=== PATIENT | male | born 1970 | race African-American/Black ===

== ENCOUNTER 2016-11-30 19:13 | Emergency (ER) | payer MEDICAID ==
[~2016-11-30] VITALS: Ht 185.4 cm; Wt 63.5 kg
[~2016-11-30 19:13] MED LIST: DOCU50CA2; OXYB5TAB61 PO; TEMA30CA5 PO; baclofen PO; gabapentin PO
[2016-11-30 20:00] VITALS: BP 202/112
[2016-11-30] MEDS ORDERED: SODIUM CHLORIDE 0.9% 1,000 ML IV ONE (21:10)
[2016-11-30] MEDS ORDERED: HYDROmorphone HCL 2 MG/ML VL IV ONE (21:15)
[2016-11-30] MEDS ORDERED: ONDANSETRON HCL 4 MG/2 ML VIAL IV ONE (21:15)
[2016-11-30 21:42] LABS: Basophils # (auto) 0 uL; DEFINITIVE VIEW TRANSMISSION; Eosinophils # (auto) 0.1 uL; Eosinophils % (auto) 1.9 % (0.0-7.0); Lymphocytes # (auto) 1.5 uL; Lymphocytes % (auto) 51.4 % (10.0-50.0); Mean Corpuscular Hemoglobin 25.7 pg (28.0-32.0); Mean Corpuscular Hgb Conc. 30.5 g/dL (32.0-36.0); Mean Corpuscular Volume 84.4 fL (80.0-100.0); Mean Platelet Volume 10.4 fL (7.4-10.4); Monocytes # (auto) 0.1 uL; Neutrophils # (auto) 1.2 uL; Neutrophils % (auto) 41.7 % (37.0-80.0); Platelet Count (auto) 169 10^3/uL (140-450); Red Cell Distribution Width 15.6 % (11.6-16.0)
[2016-11-30 22:00] LABS: Albumin 3.3 g/dL (3.4-5.0); BUN/Creatinine Ratio 11.9; Bilirubin, Total 0.3 mg/dL (0.2-1.0); Calcium 8.3 mg/dL (8.5-10.1); Potassium 4.4 mmol/L (3.5-5.1); Total Protein 6.5 g/dL (6.4-8.2)
[2016-11-30 22:57] LABS: Urine Bilirubin Negative (Negative); Urine Blood Negative /uL (Negative); Urine Color Yellow (Yellow); Urine Glucose Normal (Normal); Urine Ketone Negative (Negative); Urine RBC <1 /hpf (0 - 3); Urine Urobilinogen Normal (Negative)
[2016-11-30 22:58] LABS: Urine Nitrite POSITIVE (Negative)
== END 2016-12-01 02:18 | disposition home or self-care (01) ==
LOC: EDBD 19:13 → ER 19:17
DX: R10.84 Generalized abdominal pain (principal); K59.00 Constipation, unspecified; Z88.1 Allergy status to other antibiotic agents; Z88.8 Allergy status to other drugs, medicaments and biological substances; Z90.6 Acquired absence of other parts of urinary tract; Z90.79 Acquired absence of other genital organ(s); Z93.3 Colostomy status
CPT/HCPCS: 36415; 74176; 80053; 81001; 83690; 85025; 96361; 96374; 96375; 99285; J1170; J2405

== ENCOUNTER 2016-12-07 13:00 | Emergency (ER) | payer MEDICAID ==
[~2016-12-07] VITALS: Ht 188 cm; Wt 64.9 kg
[2016-12-07 13:38] LABS: Basophils # (auto) 0 uL; Basophils % (auto) 0.7 % (0.0-2.0); DEFINITIVE VIEW TRANSMISSION; Eosinophils # (auto) 0.1 uL; Eosinophils % (auto) 2.1 % (0.0-7.0); Hematocrit 39.5 % (41.0-53.0); Hemoglobin 12.1 g/dL (13.5-17.5); Lymphocytes # (auto) 1.1 uL; Lymphocytes % (auto) 45.3 % (10.0-50.0); Mean Corpuscular Hemoglobin 26.2 pg (28.0-32.0); Mean Corpuscular Hgb Conc. 30.5 g/dL (32.0-36.0); Mean Corpuscular Volume 85.8 fL (80.0-100.0); Monocytes # (auto) 0.2 uL; Monocytes % (auto) 8.5 % (0.0-12.0); Neutrophils # (auto) 1.1 uL; Neutrophils % (auto) 43.4 % (37.0-80.0); Platelet Count (auto) 120 10^3/uL (140-450); White Blood Cell 2.5 10^3/uL (4.4-10.8)
[2016-12-07 14:00] LABS: Albumin 3.3 g/dL (3.4-5.0); BUN/Creatinine Ratio 14.3; Bilirubin, Total 0.3 mg/dL (0.2-1.0); Calcium 8.2 mg/dL (8.5-10.1); Total Protein 6.6 g/dL (6.4-8.2)
[2016-12-07] MEDS ORDERED: SODIUM CHLORIDE 0.9% 1,000 ML IVB ONE (16:54)
[2016-12-07] MEDS ORDERED: MORPHINE SULFATE 4 MG/ML SYRG IV ONE (17:00)
[2016-12-07] MEDS ORDERED: METOCLOPRAMIDE HCL 5MG/ml INJ 2ml VIAL IV ONE (17:00)
[2016-12-07 17:12] LABS: Urine Bilirubin Negative (Negative); Urine Blood Negative /uL (Negative); Urine Color Yellow (Yellow); Urine Glucose Normal (Normal); Urine Ketone Negative (Negative); Urine Mucus FEW (None Seen); Urine RBC 6 /hpf (0 - 3); Urine Squamous Epithelial Cell FEW /hpf (<5); Urine Triple Phosphate Crystal FEW /hpf (None Seen); Urine Urobilinogen Normal (Negative)
[2016-12-07 17:30] LABS: Urine Nitrite POSITIVE (Negative)
[2016-12-07 17:35] LABS: Magnesium 2.3 mg/dL (1.6-2.6)
[2016-12-07] MEDS ORDERED: cefTRIAXone 1GM/50ML D5W 50 ML IV ONE (18:15)
[2016-12-07] MEDS ORDERED: VANCOMYCIN 1GM/250ML D5W 250 ML IV ONE (18:30)
[2016-12-07 19:07] VITALS: BP 105/68
== END 2016-12-07 21:03 | disposition home or self-care (01) ==
LOC: ER 13:00
DX: N39.0 Urinary tract infection, site not specified (principal); D64.9 Anemia, unspecified; G82.20 Paraplegia, unspecified; Z88.1 Allergy status to other antibiotic agents; Z79.899 Other long term (current) drug therapy; Z93.3 Colostomy status; Z93.6 Other artificial openings of urinary tract status
CPT/HCPCS: 36415; 80053; 81001; 83690; 83735; 84443; 85025; 96361; 96365; 96375; 99284; J2270; J2765; J3370; J7030

== ENCOUNTER 2017-01-22 12:36 | Emergency (ER) | payer MEDICAID ==
[~2017-01-22] VITALS: Ht 172.7 cm; Wt 65.8 kg
[2017-01-22] MEDS ORDERED: SODIUM CHLORIDE 0.9% 1,000 ML IVB ONE (16:40)
[2017-01-22] MEDS ORDERED: HYDROmorphone HCL 2 MG/ML VL IV ONE (16:45)
[2017-01-22] MEDS ORDERED: ONDANSETRON HCL 4 MG/2 ML VIAL IV ONE (16:45)
[2017-01-22 17:03] LABS: Urine Bilirubin Negative (Negative); Urine Blood Negative /uL (Negative); Urine Color Yellow (Yellow); Urine Glucose Normal (Normal); Urine Ketone Negative (Negative); Urine Nitrite POSITIVE (Negative); Urine RBC 2 /hpf (0 - 3); Urine Squamous Epithelial Cell FEW /hpf (<5); Urine Triple Phosphate Crystal FEW /hpf (None Seen); Urine Urobilinogen Normal (Negative)
[2017-01-22 17:34] LABS: Basophils # (auto) 0 uL; Basophils % (auto) 0.6 % (0.0-2.0); DEFINITIVE VIEW TRANSMISSION; Eosinophils # (auto) 0.1 uL; Hematocrit 38.8 % (41.0-53.0); Hemoglobin 12.4 g/dL (13.5-17.5); Lymphocytes % (auto) 20.5 % (10.0-50.0); Mean Corpuscular Hemoglobin 26.6 pg (28.0-32.0); Mean Corpuscular Volume 83.3 fL (80.0-100.0); Mean Platelet Volume 10.1 fL (7.4-10.4); Monocytes # (auto) 0.4 uL; Monocytes % (auto) 7.1 % (0.0-12.0); Neutrophils # (auto) 3.5 uL; Neutrophils % (auto) 70.8 % (37.0-80.0); Platelet Count (auto) 199 10^3/uL (140-450); Red Cell Distribution Width 15.1 % (11.6-16.0); White Blood Cell 4.9 10^3/uL (4.4-10.8)
[2017-01-22 17:59] LABS: Albumin 3.3 g/dL (3.4-5.0); BUN/Creatinine Ratio 11.5; Bilirubin, Total 0.4 mg/dL (0.2-1.0); Calcium 9.1 mg/dL (8.5-10.1); Potassium 4.5 mmol/L (3.5-5.1); Total Protein 7.1 g/dL (6.4-8.2)
[2017-01-22 18:24] VITALS: BP 132/85
== END 2017-01-22 19:28 | disposition home or self-care (01) ==
LOC: EDBD 12:36 → ER 12:49
DX: N39.0 Urinary tract infection, site not specified (principal); G82.20 Paraplegia, unspecified; Z79.899 Other long term (current) drug therapy; Z88.1 Allergy status to other antibiotic agents
CPT/HCPCS: 36415; 74176; 80053; 81001; 83605; 85025; 87040; 94761; 96361; 96374; 96375; 99285; J1170; J2405; J7030

== ENCOUNTER 2017-02-14 08:37 | Emergency (ER) | payer MEDICAID ==
[~2017-02-14] VITALS: Ht 185.4 cm; Wt 68.0 kg
[2017-02-14 08:55] VITALS: BP 100/73
[2017-02-14] MEDS ORDERED: PHENAZOPYRIDINE HCL 100 MG TAB PO ONE (09:45)
[2017-02-14 10:16] LABS: Urine Bilirubin Negative (Negative); Urine Blood TRACE /uL (Negative); Urine Color Yellow (Yellow); Urine Glucose Normal (Normal); Urine Ketone Negative (Negative); Urine Mucus FEW (None Seen); Urine RBC 8 /hpf (0 - 3); Urine Urobilinogen Normal (Negative)
[2017-02-14 10:17] LABS: Urine Nitrite POSITIVE (Negative)
== END 2017-02-14 10:09 | disposition home or self-care (01) ==
LOC: ER 08:50
DX: N39.0 Urinary tract infection, site not specified (principal); R05 Cough; Z87.440 Personal history of urinary (tract) infections; Z88.8 Allergy status to other drugs, medicaments and biological substances; Z88.1 Allergy status to other antibiotic agents
CPT/HCPCS: 81001; 81002; 87086; 87088; 87186

== ENCOUNTER 2017-02-19 09:40 | Inpatient (IN) | payer MEDICAID ==
[~2017-02-19] VITALS: Ht 185.4 cm; Wt 62.2 kg
[2017-02-19] MEDS ORDERED: SODIUM CHLORIDE 0.9% 1,000 ML IV ONE (10:38)
[2017-02-19] MEDS ORDERED: ERTAPENEM SOD INJ 1 GM in SODIUM CHL 0.9% 50 ML IV ONE (10:45)
[2017-02-19 10:49] LABS: Basophils # (auto) 0 uL; Basophils % (auto) 0.9 % (0.0-2.0); Eosinophils # (auto) 0.1 uL; Eosinophils % (auto) 2.1 % (0.0-7.0); Hemoglobin 11.1 g/dL (13.5-17.5); Lymphocytes # (auto) 0.9 uL; Lymphocytes % (auto) 34.9 % (10.0-50.0); Mean Corpuscular Hgb Conc. 31.8 g/dL (32.0-36.0); Mean Platelet Volume 10.3 fL (7.4-10.4); Monocytes # (auto) 0.2 uL; Neutrophils # (auto) 1.4 uL; Neutrophils % (auto) 54.1 % (37.0-80.0); Platelet Count (auto) 170 10^3/uL (140-450); Red Cell Distribution Width 15.1 % (11.6-16.0); White Blood Cell 2.5 10^3/uL (4.4-10.8)
[2017-02-19 10:51] LABS: Albumin 3.2 g/dL (3.4-5.0); BUN/Creatinine Ratio 20.6; Calcium 8.1 mg/dL (8.5-10.1); Potassium 4.5 mmol/L (3.5-5.1)
[2017-02-19 10:54] LABS: Total Protein 6.9 g/dL (6.4-8.2)
[2017-02-19 11:57] LABS: INR 1.01 (0.9-1.15); Partial Thromboplastin Time 26.1 sec (22.64-33.71); Prothrombin Time 10.9 sec (9.37-12.3)
[2017-02-19] MEDS ORDERED: ONDANSETRON HCL 4 MG/2 ML VIAL IV ONE (12:00)
[2017-02-19] MEDS ORDERED: NALBUPHINE HCL 10 MG/1ml INJECTION IV ONE (12:00)
[2017-02-19 12:10] LABS: B-Type Natriuretic Peptide 8.55 pg/mL (0-100)
[2017-02-19 12:19] LABS: Temperature: 23.4 C (20.0-25.0)
[2017-02-19] MEDS ORDERED: diphenhdrAMINE HCL 50 MG/1 ML VL IV ONE (12:45)
[2017-02-19 12:48] LABS: Urine Bilirubin Negative (Negative); Urine Blood TRACE /uL (Negative); Urine Color Yellow (Yellow); Urine Glucose Normal (Normal); Urine Hyaline Cast FEW /lpf (0 - 2); Urine Ketone Negative (Negative); Urine Mucus FEW (None Seen); Urine Nitrite POSITIVE (Negative); Urine RBC 9 /hpf (0 - 3); Urine Squamous Epithelial Cell FEW /hpf (<5); Urine Urobilinogen Normal (Negative)
[2017-02-19] MEDS ORDERED: HYDROcodone-ACET 5/325MG TAB PO PRN (13:15)
[2017-02-19] MEDS ORDERED: PROCHLORPERAZINE EDISYLATE 5 MG/ML 2ML VIAL IV PRN (13:15)
[2017-02-19] MEDS ORDERED: MORPHINE SULF INJ 2 MG/ML SYRINGE 1ML IV PRN (13:15)
[2017-02-19] MEDS ORDERED: NITROGLYCERIN 0.4 MG SL TAB SL PRN (13:15)
[2017-02-19] MEDS ORDERED: ACETAMINOPHEN 500 MG TAB PO PRN (13:15)
[2017-02-19] MEDS ORDERED: ENOXAPARIN SOD 40 MG/0.4 ML SYRINGE SC ONE (13:30)
[2017-02-19] MEDS: SODIUM CHLORIDE 0.9% 1,000 ML IV SCH ×2 (16:46→21:08)
[2017-02-19] MEDS ORDERED: POLY335015 PO (18:53)
[2017-02-19] MEDS ORDERED: OXY10CRT PO (18:53)
[2017-02-19] MEDS ORDERED: HYDR-4072 PO (18:53)
[2017-02-19] MEDS ORDERED: MULT-228 PO (18:53)
[2017-02-19] MEDS ORDERED: FAM20T PO (18:53)
[2017-02-19] MEDS ORDERED: DICY10CA55 PO (18:53)
[2017-02-19] MEDS: MORPHINE SULF INJ 2 MG/ML SYRINGE 1ML IV PRN (21:09)
[2017-02-19 22:00] VITALS: BP 101/62
[2017-02-19] MEDS: TEMAZEPAM 15 MG CAP PO PRN (23:20)
[2017-02-19] MEDS: LORazepam 0.5 MG TAB PO PRN (23:20)
[2017-02-20 05:05] LABS: Basophils # (auto) 0 uL; Basophils % (auto) 0.7 % (0.0-2.0); Eosinophils # (auto) 0.1 uL; Eosinophils % (auto) 1.8 % (0.0-7.0); Hematocrit 33.3 % (41.0-53.0); Hemoglobin 10.6 g/dL (13.5-17.5); Lymphocytes # (auto) 1.4 uL; Lymphocytes % (auto) 39.8 % (10.0-50.0); Mean Corpuscular Hemoglobin 27.1 pg (28.0-32.0); Mean Corpuscular Hgb Conc. 31.8 g/dL (32.0-36.0); Mean Corpuscular Volume 85.3 fL (80.0-100.0); Monocytes # (auto) 0.3 uL; Monocytes % (auto) 7.7 % (0.0-12.0); Neutrophils # (auto) 1.7 uL; Platelet Count (auto) 167 10^3/uL (140-450); White Blood Cell 3.4 10^3/uL (4.4-10.8)
[2017-02-20] MEDS: SODIUM CHLORIDE 0.9% 1,000 ML IV SCH (05:12)
[2017-02-20 08:01] VITALS: BP 109/73
[2017-02-20] MEDS: ENOXAPARIN SOD 40 MG/0.4 ML SYRINGE SC SCH (09:24)
[2017-02-20] MEDS: ERTAPENEM SOD INJ 1 GM in SODIUM CHL 0.9% 50 ML IV SCH (09:24)
[2017-02-20] MEDS: MORPHINE SULF INJ 2 MG/ML SYRINGE 1ML IV PRN ×2 (09:24→13:22)
[2017-02-20 12:23] VITALS: BP 107/71
[2017-02-20] MEDS ORDERED: GABAPENTIN 400 MG CAP PO SCH (14:00)
[2017-02-20] MEDS: OXYBUTYNIN CHL 5 MG TAB PO SCH ×2 (15:13→21:57)
[2017-02-20] MEDS: BACLOFEN 10 MG TAB PO SCH ×2 (15:13→21:57)
[2017-02-20] MEDS: GABAPENTIN 300 MG CAP PO SCH ×2 (15:23→21:58)
[2017-02-20] MEDS: LORazepam 0.5 MG TAB PO PRN (16:16)
[2017-02-20 16:34] VITALS: BP 112/73
[2017-02-20] MEDS: POLYETHYLENE GLYCOL 17GM PWDR PO PRN (18:35)
[2017-02-20 19:30] VITALS: BP 113/66
[2017-02-20] MEDS: OXYCODONE HCL 5MG TAB PO PRN (21:58)
[2017-02-21] MEDS: MORPHINE SULF INJ 2 MG/ML SYRINGE 1ML IV PRN ×3 (01:58→23:06)
[2017-02-21] MEDS: LORazepam 0.5 MG TAB PO PRN (01:58)
[2017-02-21 05:00] VITALS: BP 118/84
[2017-02-21] MEDS: GABAPENTIN 300 MG CAP PO SCH ×3 (07:02→22:13)
[2017-02-21] MEDS: BACLOFEN 10 MG TAB PO SCH ×3 (07:03→22:13)
[2017-02-21] MEDS: OXYBUTYNIN CHL 5 MG TAB PO SCH ×3 (07:03→22:12)
[2017-02-21] MEDS: ERTAPENEM SOD INJ 1 GM in SODIUM CHL 0.9% 50 ML IV SCH (09:57)
[2017-02-21] MEDS: ENOXAPARIN SOD 40 MG/0.4 ML SYRINGE SC SCH (09:57)
[2017-02-21] MEDS: SODIUM CHLORIDE 0.9% 1,000 ML IV SCH ×2 (13:12→23:07)
[2017-02-21 16:47] VITALS: BP 133/87
[2017-02-21] MEDS: POLYETHYLENE GLYCOL 17GM PWDR PO PRN (18:23)
[2017-02-21 22:00] VITALS: BP 125/73
[2017-02-21] MEDS: TEMAZEPAM 15 MG CAP PO PRN (22:13)
[2017-02-22 05:00] VITALS: BP 106/62
[2017-02-22] MEDS: BACLOFEN 10 MG TAB PO SCH ×3 (05:41→21:26)
[2017-02-22] MEDS: GABAPENTIN 300 MG CAP PO SCH ×3 (05:41→21:26)
[2017-02-22] MEDS: OXYBUTYNIN CHL 5 MG TAB PO SCH ×3 (05:41→21:26)
[2017-02-22 07:36] VITALS: BP 118/85
[2017-02-22] MEDS ORDERED: HYDROmorphone HCL 2 MG/ML VL IV PRN ×3 (08:45→20:45)
[2017-02-22] MEDS: ERTAPENEM SOD INJ 1 GM in SODIUM CHL 0.9% 50 ML IV SCH (11:23)
[2017-02-22] MEDS: ENOXAPARIN SOD 40 MG/0.4 ML SYRINGE SC SCH (11:24)
[2017-02-22 12:18] VITALS: BP 127/70
[2017-02-22] MEDS ORDERED: HYDROmorphone HCL 2 MG/ML VL IV ONE (15:45)
[2017-02-22 16:15] VITALS: BP 124/84
[2017-02-22] MEDS: BOOST 8 ounces PO SCH (18:00)
[2017-02-22] MEDS: LORazepam 0.5 MG TAB PO PRN (20:43)
[2017-02-22] MEDS: OXYCODONE HCL 5MG TAB PO PRN (21:27)
[2017-02-22 22:00] VITALS: BP 178/113
[2017-02-23] MEDS: HYDROmorphone HCL 2 MG/ML VL IV PRN ×6 (01:12→22:24)
[2017-02-23] MEDS: TEMAZEPAM 15 MG CAP PO PRN (01:51)
[2017-02-23 05:00] VITALS: BP 108/79
[2017-02-23] MEDS: GABAPENTIN 300 MG CAP PO SCH ×3 (05:30→22:25)
[2017-02-23] MEDS: OXYBUTYNIN CHL 5 MG TAB PO SCH ×3 (05:31→22:25)
[2017-02-23] MEDS: BACLOFEN 10 MG TAB PO SCH ×3 (05:31→22:25)
[2017-02-23] MEDS: BOOST 8 ounces PO SCH ×2 (08:00→18:00)
[2017-02-23 09:00] VITALS: BP 106/72
[2017-02-23] MEDS: ERTAPENEM SOD INJ 1 GM in SODIUM CHL 0.9% 50 ML IV SCH (09:42)
[2017-02-23] MEDS: ENOXAPARIN SOD 40 MG/0.4 ML SYRINGE SC SCH (09:43)
[2017-02-23 13:00] VITALS: BP 110/79
[2017-02-23 16:44] VITALS: BP 136/82
[2017-02-23 22:00] VITALS: BP 138/91
[2017-02-23] MEDS: POLYETHYLENE GLYCOL 17GM PWDR PO PRN (23:08)
[2017-02-24 05:30] VITALS: BP 115/76
[2017-02-24] MEDS: BACLOFEN 10 MG TAB PO SCH ×2 (06:13→14:00)
[2017-02-24] MEDS: GABAPENTIN 300 MG CAP PO SCH ×2 (06:13→14:00)
[2017-02-24] MEDS: OXYBUTYNIN CHL 5 MG TAB PO SCH ×2 (06:13→14:00)
[2017-02-24] MEDS: OXYCODONE HCL 5MG TAB PO PRN (06:16)
[2017-02-24] MEDS: BOOST 8 ounces PO SCH (07:55)
[2017-02-24 08:00] VITALS: BP 98/70
[2017-02-24] MEDS ORDERED: LACTULOSE 20Gm/30ML SOLN PO ONE (08:30)
[2017-02-24 09:00] VITALS: BP 98/70
[2017-02-24] MEDS: ERTAPENEM SOD INJ 1 GM in SODIUM CHL 0.9% 50 ML IV SCH (09:36)
[2017-02-24] MEDS: ENOXAPARIN SOD 40 MG/0.4 ML SYRINGE SC SCH (09:36)
[2017-02-24 12:55] VITALS: BP 98/70
[2017-02-24 13:00] VITALS: BP 115/72
== END 2017-02-24 16:00 | disposition home health service (06) | DRG 720 ==
LOC: ER 09:40 → TELE 09:41 → TELE-EAST 17:27 → EAST 02-20 13:34
PROVIDERS: ADMIT Internal Medicine; ATTEND Internal Medicine
DX: A41.9 Sepsis, unspecified organism (principal); G82.20 Paraplegia, unspecified; E44.0 Moderate protein-calorie malnutrition; J44.9 Chronic obstructive pulmonary disease, unspecified; N39.0 Urinary tract infection, site not specified; D63.8 Anemia in other chronic diseases classified elsewhere; G89.29 Other chronic pain; Z93.3 Colostomy status
CPT/HCPCS: 36415; 71010; 74000; 74176; 80053; 81001; 83605; 83880; 84484; 85025; 85379; 85610; 85652; 85730; 87040; 87086; 87088; 87186; 96365; 96375; J1335; J1642; J2405

== ENCOUNTER 2017-03-08 09:46 | Inpatient (IN) | payer MEDICAID ==
[~2017-03-08] VITALS: Ht 182.9 cm; Wt 66.7 kg
[~2017-03-08 09:46] MED LIST changes: +DICY10CA55 PO; +FAM20T PO; +HYDR-4072 PO; +MULT-228 PO; +OXY10CRT PO; +POLY335015 PO
[2017-03-08] MEDS ORDERED: SODIUM CHLORIDE 0.9% 1,000 ML IV ONE (10:17)
[2017-03-08 10:51] LABS: Basophils # (auto) 0 uL; Basophils % (auto) 0.8 % (0.0-2.0); Eosinophils # (auto) 0 uL; Eosinophils % (auto) 1.6 % (0.0-7.0); Hemoglobin 11.6 g/dL (13.5-17.5); Lymphocytes % (auto) 33.1 % (10.0-50.0); Mean Corpuscular Hemoglobin 27.2 pg (28.0-32.0); Mean Corpuscular Hgb Conc. 32.2 g/dL (32.0-36.0); Mean Corpuscular Volume 84.4 fL (80.0-100.0); Mean Platelet Volume 10.2 fL (7.4-10.4); Monocytes # (auto) 0.2 uL; Neutrophils # (auto) 1.7 uL; Neutrophils % (auto) 58.5 % (37.0-80.0); Platelet Count (auto) 168 10^3/uL (140-450); Red Cell Distribution Width 14.6 % (11.6-16.0); White Blood Cell 2.9 10^3/uL (4.4-10.8)
[2017-03-08 11:03] LABS: Partial Thromboplastin Time 54.4 sec (22.64-33.71)
[2017-03-08 11:07] LABS: Albumin 3.4 g/dL (3.4-5.0); BUN/Creatinine Ratio 20.5; Calcium 7.8 mg/dL (8.5-10.1); Potassium 3.7 mmol/L (3.5-5.1)
[2017-03-08 11:10] LABS: Bilirubin, Total 0.5 mg/dL (0.2-1.0); INR 1.17 (0.9-1.15); Prothrombin Time 12.6 sec (9.37-12.3); Total Protein 6.4 g/dL (6.4-8.2)
[2017-03-08] MEDS ORDERED: ERTAPENEM SOD INJ 1 GM in SODIUM CHL 0.9% 50 ML IV ONE (12:45)
[2017-03-08 13:20] LABS: Urine Bilirubin Negative (Negative); Urine Color Yellow (Yellow); Urine Glucose Normal (Normal); Urine Ketone Negative (Negative); Urine Mucus FEW (None Seen); Urine Nitrite Negative (Negative); Urine RBC 4 /hpf (0 - 3); Urine Urobilinogen Normal (Negative)
[2017-03-08 13:25] LABS: Urine Blood 1+ /uL (Negative)
[2017-03-08] MEDS ORDERED: LORazepam 0.5 MG TAB PO PRN (15:15)
[2017-03-08] MEDS ORDERED: ONDANSETRON HCL 4 MG/2 ML VIAL IV PRN (15:30)
[2017-03-08] MEDS ORDERED: DOCUSATE SOD 100 MG CAP PO PRN (15:30)
[2017-03-08] MEDS ORDERED: ACETAMINOPHEN 325 MG TAB PO PRN (15:30)
[2017-03-08] MEDS ORDERED: MULTIPLE VITAMIN TAB PO ONE (15:45)
[2017-03-08] MEDS ORDERED: BACLOFEN 10 MG TAB PO ONE (15:45)
[2017-03-08] MEDS ORDERED: FAMOTIDINE 20 MG TAB PO ONE (15:45)
[2017-03-08] MEDS ORDERED: GABAPENTIN 400 MG CAP PO ONE (15:45)
[2017-03-08] MEDS ORDERED: OXYBUTYNIN CHL 5 MG TAB PO ONE (15:45)
[2017-03-08] MEDS ORDERED: ASCORBIC ACID 500 MG TAB PO ONE (15:45)
[2017-03-08] MEDS: DICYCLOMINE HCL 10 MG CAP PO SCH (17:29)
[2017-03-08] MEDS ORDERED: OXY5T PO (17:51)
[2017-03-08] MEDS: BACLOFEN 10 MG TAB PO SCH ×2 (17:56→23:53)
[2017-03-08 18:25] VITALS: BP 84/51
[2017-03-08] MEDS: POLYETHYLENE GLYCOL 17GM PWDR PO SCH (19:42)
[2017-03-08 22:00] VITALS: BP 114/72
[2017-03-08] MEDS: GABAPENTIN 400 MG CAP PO SCH (22:11)
[2017-03-08] MEDS: OXYBUTYNIN CHL 5 MG TAB PO SCH (22:11)
[2017-03-08] MEDS: ASCORBIC ACID 500 MG TAB PO SCH (22:11)
[2017-03-08] MEDS: FAMOTIDINE 20 MG TAB PO SCH (22:11)
[2017-03-08] MEDS: oxyCODONE ER 10 MG TAB PO SCH (22:11)
[2017-03-08] MEDS: SODIUM CHLOR 0.9% PF (SALINE LOCK) 10ML VIAL IV SCH (22:27)
[2017-03-08] MEDS: TEMAZEPAM 15 MG CAP PO PRN (22:31)
[2017-03-08] MEDS: HYDROcodone-ACET 10/325MG TAB PO PRN (23:53)
[2017-03-09 05:00] VITALS: BP 84/52
[2017-03-09] MEDS: SODIUM CHLOR 0.9% PF (SALINE LOCK) 10ML VIAL IV SCH ×3 (05:51→22:22)
[2017-03-09] MEDS: GABAPENTIN 400 MG CAP PO SCH ×3 (05:51→22:23)
[2017-03-09] MEDS: HYDROcodone-ACET 10/325MG TAB PO PRN ×2 (05:51→11:51)
[2017-03-09] MEDS: BACLOFEN 10 MG TAB PO SCH ×3 (05:51→18:06)
[2017-03-09] MEDS: OXYBUTYNIN CHL 5 MG TAB PO SCH ×3 (05:51→22:22)
[2017-03-09 09:25] VITALS: BP 109/50
[2017-03-09] MEDS: oxyCODONE ER 10 MG TAB PO SCH ×2 (09:43→22:22)
[2017-03-09] MEDS: DICYCLOMINE HCL 10 MG CAP PO SCH ×3 (09:43→18:06)
[2017-03-09] MEDS: FAMOTIDINE 20 MG TAB PO SCH ×2 (09:43→22:22)
[2017-03-09] MEDS: ZINC SULFATE 220 MG CAP PO SCH (09:43)
[2017-03-09] MEDS: ASCORBIC ACID 500 MG TAB PO SCH ×2 (09:43→22:23)
[2017-03-09] MEDS: MULTIPLE VITAMIN TAB PO SCH (09:43)
[2017-03-09] MEDS: POLYETHYLENE GLYCOL 17GM PWDR PO SCH ×3 (09:44→19:54)
[2017-03-09] MEDS: ERTAPENEM SOD INJ 1 GM in SODIUM CHL 0.9% 50 ML IV SCH (09:44)
[2017-03-09 11:40] LABS: DEFINITIVE VIEW TRANSMISSION; Hematocrit 35.7 % (41.0-53.0); Hemoglobin 11.4 g/dL (13.5-17.5); Mean Corpuscular Hgb Conc. 31.8 g/dL (32.0-36.0); Mean Corpuscular Volume 84.9 fL (80.0-100.0); Mean Platelet Volume 10.1 fL (7.4-10.4); Platelet Count (auto) 159 10^3/uL (140-450); Red Cell Distribution Width 14.4 % (11.6-16.0); SUSPECT VIEW TRANSMISSION; White Blood Cell 2.6 10^3/uL (4.4-10.8)
[2017-03-09 11:41] LABS: Metamyelocytes % 0; Myelocytes % 0; Promyelocytes % 0; Reactive Lymphocytes 0
[2017-03-09 11:56] VITALS: BP 106/71
[2017-03-09 11:59] LABS: Albumin 3.1 g/dL (3.4-5.0); BUN/Creatinine Ratio 18.4; Calcium 8.4 mg/dL (8.5-10.1); Potassium 4.5 mmol/L (3.5-5.1)
[2017-03-09 12:02] LABS: Bilirubin, Total 0.2 mg/dL (0.2-1.0); Total Protein 6.3 g/dL (6.4-8.2)
[2017-03-09 12:11] LABS: Burr Cells FEW; Large Platelets FEW; Ovalocytes FEW; Platelet Estimate Adequate
[2017-03-09] MEDS ORDERED: MORPHINE SULF INJ 2 MG/ML SYRINGE 1ML IV ONE (12:15)
[2017-03-09 16:41] VITALS: BP 93/67
[2017-03-09] MEDS: LACTULOSE 20Gm/30ML SOLN PO PRN (18:06)
[2017-03-09] MEDS: MORPHINE SULF INJ 2 MG/ML SYRINGE 1ML IV PRN (18:07)
[2017-03-09 22:00] VITALS: BP 92/65
[2017-03-10] MEDS: BACLOFEN 10 MG TAB PO SCH ×5 (00:28→22:48)
[2017-03-10] MEDS: MORPHINE SULF INJ 2 MG/ML SYRINGE 1ML IV PRN ×2 (00:30→21:00)
[2017-03-10] MEDS: TEMAZEPAM 15 MG CAP PO PRN ×2 (00:30→22:47)
[2017-03-10 05:00] VITALS: BP 78/50
[2017-03-10] MEDS: SODIUM CHLOR 0.9% PF (SALINE LOCK) 10ML VIAL IV SCH ×3 (05:57→22:46)
[2017-03-10] MEDS: GABAPENTIN 400 MG CAP PO SCH ×3 (06:15→22:47)
[2017-03-10] MEDS: OXYBUTYNIN CHL 5 MG TAB PO SCH ×3 (06:15→22:46)
[2017-03-10] MEDS: DICYCLOMINE HCL 10 MG CAP PO SCH ×3 (08:21→17:23)
[2017-03-10 09:00] VITALS: BP 81/54
[2017-03-10] MEDS: MULTIPLE VITAMIN TAB PO SCH (10:07)
[2017-03-10] MEDS: oxyCODONE ER 10 MG TAB PO SCH ×2 (10:07→22:53)
[2017-03-10] MEDS: FAMOTIDINE 20 MG TAB PO SCH ×2 (10:07→22:48)
[2017-03-10] MEDS: ZINC SULFATE 220 MG CAP PO SCH (10:07)
[2017-03-10] MEDS: ASCORBIC ACID 500 MG TAB PO SCH ×2 (10:07→22:48)
[2017-03-10] MEDS: POLYETHYLENE GLYCOL 17GM PWDR PO SCH ×3 (10:08→22:46)
[2017-03-10] MEDS: ERTAPENEM SOD INJ 1 GM in SODIUM CHL 0.9% 50 ML IV SCH (10:08)
[2017-03-10 13:00] VITALS: BP 92/48
[2017-03-10] MEDS: HYDROcodone-ACET 10/325MG TAB PO PRN (15:01)
[2017-03-10 17:00] VITALS: BP 92/65
[2017-03-10 22:00] VITALS: BP 117/66
[2017-03-11 01:10] VITALS: BP 101/66
[2017-03-11] MEDS: MORPHINE SULF INJ 2 MG/ML SYRINGE 1ML IV PRN (01:10)
[2017-03-11 05:00] VITALS: BP 101/69
[2017-03-11] MEDS: OXYBUTYNIN CHL 5 MG TAB PO SCH ×3 (06:34→23:13)
[2017-03-11] MEDS: BACLOFEN 10 MG TAB PO SCH ×4 (06:34→23:14)
[2017-03-11] MEDS: SODIUM CHLOR 0.9% PF (SALINE LOCK) 10ML VIAL IV SCH ×3 (06:34→23:13)
[2017-03-11] MEDS: GABAPENTIN 400 MG CAP PO SCH ×3 (06:35→23:13)
[2017-03-11] MEDS: oxyCODONE ER 10 MG TAB PO SCH ×2 (08:22→22:00)
[2017-03-11] MEDS: ERTAPENEM SOD INJ 1 GM in SODIUM CHL 0.9% 50 ML IV SCH (08:22)
[2017-03-11] MEDS: DICYCLOMINE HCL 10 MG CAP PO SCH ×3 (08:22→18:28)
[2017-03-11] MEDS: POLYETHYLENE GLYCOL 17GM PWDR PO SCH ×3 (08:23→20:00)
[2017-03-11] MEDS: ZINC SULFATE 220 MG CAP PO SCH (08:23)
[2017-03-11] MEDS: MULTIPLE VITAMIN TAB PO SCH (08:23)
[2017-03-11] MEDS: FAMOTIDINE 20 MG TAB PO SCH ×2 (08:23→23:14)
[2017-03-11] MEDS: ASCORBIC ACID 500 MG TAB PO SCH ×2 (08:23→23:14)
[2017-03-11 09:00] VITALS: BP 102/64
[2017-03-11] MEDS ORDERED: GASTROGRAFIN 120 ML SOL ONE (10:47)
[2017-03-11] MEDS: LINEZOLID 600MG/300ML 300 ML IV SCH ×2 (15:23→22:00)
[2017-03-11 17:00] VITALS: BP 81/45
[2017-03-11] MEDS: HYDROmorphone HCL 2 MG/ML VL IV PRN (18:49)
[2017-03-11 22:00] VITALS: BP 126/76
[2017-03-12 05:00] VITALS: BP 99/59
[2017-03-12] MEDS: BACLOFEN 10 MG TAB PO SCH ×4 (07:11→23:35)
[2017-03-12] MEDS: GABAPENTIN 400 MG CAP PO SCH ×3 (07:11→22:17)
[2017-03-12] MEDS: OXYBUTYNIN CHL 5 MG TAB PO SCH ×3 (07:11→22:17)
[2017-03-12] MEDS: SODIUM CHLOR 0.9% PF (SALINE LOCK) 10ML VIAL IV SCH ×3 (07:11→22:16)
[2017-03-12 08:17] VITALS: BP 95/68
[2017-03-12] MEDS ORDERED: LINE600T PO (09:23)
[2017-03-12] MEDS: LINEZOLID 600MG/300ML 300 ML IV SCH ×3 (10:00→22:17)
[2017-03-12] MEDS: ASCORBIC ACID 500 MG TAB PO SCH ×2 (10:00→22:18)
[2017-03-12] MEDS: POLYETHYLENE GLYCOL 17GM PWDR PO SCH ×3 (10:00→20:11)
[2017-03-12] MEDS: ZINC SULFATE 220 MG CAP PO SCH (10:00)
[2017-03-12] MEDS: MULTIPLE VITAMIN TAB PO SCH (10:00)
[2017-03-12] MEDS: FAMOTIDINE 20 MG TAB PO SCH ×2 (10:00→22:17)
[2017-03-12] MEDS: oxyCODONE ER 10 MG TAB PO SCH ×2 (10:48→22:17)
[2017-03-12] MEDS: DICYCLOMINE HCL 10 MG CAP PO SCH ×3 (10:48→18:00)
[2017-03-12] MEDS: HYDROmorphone HCL 2 MG/ML VL IV PRN ×2 (12:36→20:40)
[2017-03-12 13:01] VITALS: BP 165/80
[2017-03-12 16:39] VITALS: BP 101/60
[2017-03-12 21:05] VITALS: BP 105/70
[2017-03-12] MEDS: LACTULOSE 20Gm/30ML SOLN PO PRN (22:23)
[2017-03-13 05:00] VITALS: BP 130/80
[2017-03-13] MEDS: GABAPENTIN 400 MG CAP PO SCH (06:03)
[2017-03-13] MEDS: OXYBUTYNIN CHL 5 MG TAB PO SCH (06:03)
[2017-03-13] MEDS: BACLOFEN 10 MG TAB PO SCH (06:03)
[2017-03-13] MEDS: SODIUM CHLOR 0.9% PF (SALINE LOCK) 10ML VIAL IV SCH (06:03)
[2017-03-13 08:00] VITALS: BP 100/68
[2017-03-13 08:32] LABS: Basophils # (auto) 0 uL; Basophils % (auto) 1.4 % (0.0-2.0); Eosinophils # (auto) 0.1 uL; Eosinophils % (auto) 2.5 % (0.0-7.0); Hematocrit 36.2 % (41.0-53.0); Hemoglobin 11.9 g/dL (13.5-17.5); Lymphocytes # (auto) 1.3 uL; Lymphocytes % (auto) 47.3 % (10.0-50.0); Mean Corpuscular Hemoglobin 27.1 pg (28.0-32.0); Mean Corpuscular Hgb Conc. 32.8 g/dL (32.0-36.0); Mean Corpuscular Volume 82.8 fL (80.0-100.0); Monocytes # (auto) 0.3 uL; Neutrophils # (auto) 1.1 uL; Neutrophils % (auto) 39.8 % (37.0-80.0); Platelet Count (auto) 151 10^3/uL (140-450); Red Cell Distribution Width 14.6 % (11.6-16.0); SUSPECT VIEW TRANSMISSION; White Blood Cell 2.8 10^3/uL (4.4-10.8)
[2017-03-13 08:42] VITALS: BP 100/68
[2017-03-13] MEDS: POLYETHYLENE GLYCOL 17GM PWDR PO SCH (09:55)
[2017-03-13] MEDS: LINEZOLID 600MG/300ML 300 ML IV SCH (09:55)
[2017-03-13] MEDS: ZINC SULFATE 220 MG CAP PO SCH (09:55)
[2017-03-13] MEDS: DICYCLOMINE HCL 10 MG CAP PO SCH (09:55)
[2017-03-13] MEDS: ASCORBIC ACID 500 MG TAB PO SCH (09:56)
[2017-03-13] MEDS: FAMOTIDINE 20 MG TAB PO SCH (09:56)
[2017-03-13] MEDS: MULTIPLE VITAMIN TAB PO SCH (09:56)
[2017-03-13] MEDS: oxyCODONE ER 10 MG TAB PO SCH (09:56)
[2017-03-13] MEDS ORDERED: LINEZOLID 600MG TABLET PO SCH (22:00)
== END 2017-03-13 13:30 | disposition home health service (06) | DRG 252 ==
LOC: ER 09:47 → TELE 09:48 → OVERFLOW 16:55 → WEST WING 17:14
PROVIDERS: ADMIT Internal Medicine; ATTEND Internal Medicine
DX: K66.0 Peritoneal adhesions (postprocedural) (postinfection) (principal); G82.50 Quadriplegia, unspecified; N39.0 Urinary tract infection, site not specified; N13.2 Hydronephrosis with renal and ureteral calculous obstruction; G89.29 Other chronic pain; B95.7 Other staphylococcus as the cause of diseases classified elsewhere; Z88.1 Allergy status to other antibiotic agents; Z82.49 Family history of ischemic heart disease and other diseases of the circulatory system; Z79.899 Other long term (current) drug therapy; Z93.3 Colostomy status
CPT/HCPCS: 36415; 74250; 76775; 80053; 80307; 81001; 83605; 84484; 85007; 85025; 85027; 85610; 85730; 87040; 87081; 87086; 87088; 87186; 94761; 96361; 96365; J1335; J1642

== ENCOUNTER 2017-04-19 08:32 | Inpatient (IN) | payer MEDICAID ==
[~2017-04-19] VITALS: Ht 182.9 cm; Wt 64.0 kg
[~2017-04-19 08:32] MED LIST changes: +LINE600T PO; -OXY10CRT PO; +OXY5T PO
[2017-04-19 11:17] LABS: Basophils # (auto) 0 uL; Basophils % (auto) 0.1 % (0.0-2.0); CONDITION Y; Eosinophils # (auto) 0.1 uL; Eosinophils % (auto) 1.5 % (0.0-7.0); Hematocrit 35.8 % (41.0-53.0); Hemoglobin 11.4 g/dL (13.5-17.5); Lymphocytes # (auto) 0.8 uL; Lymphocytes % (auto) 18.1 % (10.0-50.0); Mean Corpuscular Hemoglobin 27.4 pg (28.0-32.0); Mean Corpuscular Hgb Conc. 31.9 g/dL (32.0-36.0); Mean Corpuscular Volume 85.8 fL (80.0-100.0); Mean Platelet Volume 9.7 fL (7.4-10.4); Monocytes # (auto) 0.2 uL; Monocytes % (auto) 3.6 % (0.0-12.0); Neutrophils # (auto) 3.5 uL; Neutrophils % (auto) 76.7 % (37.0-80.0); Platelet Count (auto) 140 10^3/uL (140-450); Red Cell Distribution Width 16.7 % (11.6-16.0); SUSPECT SEE PRINTOUT; White Blood Cell 4.6 10^3/uL (4.4-10.8)
[2017-04-19 11:35] LABS: Albumin 3.2 g/dL (3.4-5.0); BUN/Creatinine Ratio 19.5; Bilirubin, Total 0.4 mg/dL (0.2-1.0); Calcium 8.1 mg/dL (8.5-10.1); Potassium 3.8 mmol/L (3.5-5.1); Total Protein 6.2 g/dL (6.4-8.2)
[2017-04-19] MEDS ORDERED: SODIUM CHLORIDE 0.9% 250 ML IV ONE (11:37)
[2017-04-19] MEDS ORDERED: KETOROLAC TROMETH 30 MG/ML 1ML VIAL IV ONE (11:45)
[2017-04-19] MEDS ORDERED: METOCLOPRAMIDE HCL 5MG/ml INJ 2ml VIAL IV ONE (11:45)
[2017-04-19 14:22] LABS: Urine Blood Negative /uL (Negative); Urine Color Orange (Yellow); Urine Glucose Normal (Normal); Urine Ketone Negative (Negative); Urine RBC 3 /hpf (0 - 3); Urine Squamous Epithelial Cell FEW /hpf (<5); Urine Urobilinogen Normal (Negative)
[2017-04-19 14:24] LABS: Urine Nitrite POSITIVE (Negative)
[2017-04-19 14:27] LABS: Urine Bilirubin Negative (Negative)
[2017-04-19] MEDS ORDERED: PROMETHAZINE HCL 25 MG/ML 1ML IV ONE (16:00)
[2017-04-19] MEDS ORDERED: MEPERIDINE HCL (50 MG/ML) 1 ML VIAL IV ONE (16:00)
[2017-04-19] MEDS ORDERED: NITROGLYCERIN 0.4 MG SL TAB SL PRN (16:00)
[2017-04-19] MEDS ORDERED: MORPHINE SULF INJ 2 MG/ML SYRINGE 1ML IV PRN (16:00)
[2017-04-19] MEDS ORDERED: LORazepam 0.5 MG TAB PO PRN (16:00)
[2017-04-19] MEDS ORDERED: ACETAMINOPHEN 500 MG TAB PO PRN (16:00)
[2017-04-19] MEDS ORDERED: SODIUM CHLORIDE 0.9% 1,000 ML IV ONE (16:00)
[2017-04-19] MEDS ORDERED: PIPERACILLIN-TAZOB 3.375GM 100 ML IV ONE ×2 (16:00)
[2017-04-19] MEDS ORDERED: PROMETHAZINE HCL 25 MG/ML 1ML IV PRN (16:00)
[2017-04-19] MEDS: FAMOTIDINE (10MG/ML) 2ML VL IV SCH (16:43)
[2017-04-19] MEDS ORDERED: ERTAPENEM SOD INJ 1 GM in SODIUM CHL 0.9% 50 ML IV ONE (16:45)
[2017-04-19] MEDS ORDERED: PIPERACILLIN-TAZOB 3.375GM 100 ML IV SCH (18:00)
[2017-04-19] MEDS: SODIUM CHLORIDE 0.9% 1,000 ML IV SCH (19:20)
[2017-04-19 21:30] VITALS: BP 98/59
[2017-04-19 21:43] VITALS: BP 98/59
[2017-04-19] MEDS: HYDROcodone-ACET 5/325MG TAB PO PRN (23:44)
[2017-04-19] MEDS: TEMAZEPAM 15 MG CAP PO PRN (23:44)
[2017-04-20] MEDS ORDERED: PHEN95TA10 PO (01:05)
[2017-04-20] MEDS ORDERED: PREG100C PO (01:06)
[2017-04-20] MEDS ORDERED: MORP60TA25 PO (01:06)
[2017-04-20] MEDS: SODIUM CHLORIDE 0.9% 1,000 ML IV SCH ×3 (02:30→21:59)
[2017-04-20] MEDS: FAMOTIDINE (10MG/ML) 2ML VL IV SCH ×2 (04:36→16:00)
[2017-04-20 05:00] VITALS: BP 130/84
[2017-04-20] MEDS: MORPHINE SULF INJ 2 MG/ML SYRINGE 1ML IV PRN ×2 (05:03→09:23)
[2017-04-20] MEDS: HYDROcodone-ACET 5/325MG TAB PO PRN (06:29)
[2017-04-20 07:19] LABS: Basophils # (auto) 0 uL; Basophils % (auto) 0.4 % (0.0-2.0); CONDITION Y; Eosinophils # (auto) 0 uL; Mean Platelet Volume 10.7 fL (7.4-10.4); Monocytes # (auto) 0.4 uL; Monocytes % (auto) 10.4 % (0.0-12.0)
[2017-04-20 07:29] LABS: Hematocrit 32.3 % (41.0-53.0); Hemoglobin 10.5 g/dL (13.5-17.5); Lymphocytes % (auto) 29.8 % (10.0-50.0); Mean Corpuscular Hemoglobin 27.9 pg (28.0-32.0); Mean Corpuscular Hgb Conc. 32.5 g/dL (32.0-36.0); Mean Corpuscular Volume 85.9 fL (80.0-100.0); Neutrophils % (auto) 58.4 % (37.0-80.0); Platelet Count (auto) 117 10^3/uL (140-450); Red Cell Distribution Width 16.8 % (11.6-16.0); SUSPECT SEE PRINTOUT; White Blood Cell 3.4 10^3/uL (4.4-10.8)
[2017-04-20 07:40] LABS: Albumin 2.8 g/dL (3.4-5.0); BUN/Creatinine Ratio 16.7; Calcium 7.6 mg/dL (8.5-10.1); Potassium 3.9 mmol/L (3.5-5.1)
[2017-04-20 07:49] LABS: Bilirubin, Total 0.3 mg/dL (0.2-1.0); Total Protein 5.6 g/dL (6.4-8.2)
[2017-04-20 08:00] VITALS: BP 132/85
[2017-04-20 09:00] VITALS: BP 132/85
[2017-04-20] MEDS: ERTAPENEM SOD INJ 1 GM in SODIUM CHL 0.9% 50 ML IV SCH (10:37)
[2017-04-20] MEDS: HYDROmorphone HCL 2 MG/ML VL IV PRN ×2 (12:36→18:34)
[2017-04-20] MEDS: MORPHINE SULF 30 mg ER tab PO SCH ×2 (12:36→21:40)
[2017-04-20 13:00] VITALS: BP 139/80
[2017-04-20] MEDS: GABAPENTIN 300 MG CAP PO SCH ×2 (14:10→21:40)
[2017-04-20 17:00] VITALS: BP 101/67
[2017-04-20 21:30] VITALS: BP 117/72
[2017-04-20] MEDS: TEMAZEPAM 15 MG CAP PO PRN (21:40)
[2017-04-20] MEDS: BACLOFEN 10 MG TAB PO PRN (21:45)
[2017-04-21] MEDS: FAMOTIDINE (10MG/ML) 2ML VL IV SCH ×2 (04:26→16:00)
[2017-04-21 05:00] VITALS: BP 117/72
[2017-04-21] MEDS: GABAPENTIN 300 MG CAP PO SCH ×3 (06:21→22:07)
[2017-04-21] MEDS: SODIUM CHLORIDE 0.9% 1,000 ML IV SCH ×2 (06:21→16:36)
[2017-04-21] MEDS: HYDROmorphone HCL 2 MG/ML VL IV PRN ×4 (06:28→18:52)
[2017-04-21 08:05] LABS: Basophils # (auto) 0 uL; Basophils % (auto) 0.4 % (0.0-2.0); CONDITION Y; DEFINITIVE SEE PRINTOUT; Eosinophils # (auto) 0.1 uL; Hematocrit 32.5 % (41.0-53.0); Hemoglobin 10.4 g/dL (13.5-17.5); Lymphocytes % (auto) 44.3 % (10.0-50.0); Mean Corpuscular Hemoglobin 27.3 pg (28.0-32.0); Mean Corpuscular Hgb Conc. 31.8 g/dL (32.0-36.0); Mean Corpuscular Volume 85.9 fL (80.0-100.0); Mean Platelet Volume 10.2 fL (7.4-10.4); Monocytes # (auto) 0.3 uL; Monocytes % (auto) 13.5 % (0.0-12.0); Neutrophils # (auto) 0.9 uL; Neutrophils % (auto) 38.8 % (37.0-80.0); Platelet Count (auto) 120 10^3/uL (140-450); Red Cell Distribution Width 16.7 % (11.6-16.0); White Blood Cell 2.3 10^3/uL (4.4-10.8)
[2017-04-21 08:05] LABS: BUN/Creatinine Ratio 9.1; Calcium 7.5 mg/dL (8.5-10.1)
[2017-04-21 08:18] LABS: Potassium 3.9 mmol/L (3.5-5.1)
[2017-04-21 08:19] VITALS: BP 119/78
[2017-04-21 08:26] VITALS: BP 119/78
[2017-04-21] MEDS: ERTAPENEM SOD INJ 1 GM in SODIUM CHL 0.9% 50 ML IV SCH (10:27)
[2017-04-21] MEDS: MORPHINE SULF 30 mg ER tab PO SCH ×2 (10:28→22:08)
[2017-04-21] MEDS: MILK OF MAGNESIA 30ML SUSP PO PRN (15:36)
[2017-04-21 16:27] VITALS: BP 145/90
[2017-04-21] MEDS: BACLOFEN 10 MG TAB PO PRN ×2 (16:36→22:07)
[2017-04-21 22:00] VITALS: BP 104/73
[2017-04-21] MEDS: TEMAZEPAM 15 MG CAP PO PRN (22:07)
[2017-04-22] MEDS: FAMOTIDINE (10MG/ML) 2ML VL IV SCH ×2 (03:40→17:25)
[2017-04-22] MEDS: SODIUM CHLORIDE 0.9% 1,000 ML IV SCH ×2 (03:59→12:20)
[2017-04-22 05:00] VITALS: BP 156/87
[2017-04-22] MEDS: GABAPENTIN 300 MG CAP PO SCH ×3 (05:29→21:19)
[2017-04-22] MEDS: HYDROmorphone HCL 2 MG/ML VL IV PRN (05:29)
[2017-04-22 07:29] LABS: BUN/Creatinine Ratio 11.3; Calcium 7.8 mg/dL (8.5-10.1); Potassium 3.9 mmol/L (3.5-5.1)
[2017-04-22 09:00] VITALS: BP 130/78
[2017-04-22] MEDS: ERTAPENEM SOD INJ 1 GM in SODIUM CHL 0.9% 50 ML IV SCH (10:00)
[2017-04-22] MEDS: MORPHINE SULF 30 mg ER tab PO SCH ×2 (10:47→21:19)
[2017-04-22] MEDS ORDERED: SACC250C PO (14:19)
[2017-04-22 17:00] VITALS: BP 129/85
[2017-04-22] MEDS: HYDROcodone-ACET 5/325MG TAB PO PRN (18:10)
[2017-04-22 20:00] VITALS: BP 105/73
[2017-04-22] MEDS: TEMAZEPAM 15 MG CAP PO PRN (21:32)
[2017-04-22] MEDS ORDERED: NITROFURANTOIN (MONO) 100 mg CAP PO SCH (22:00)
[2017-04-22 22:25] VITALS: BP 105/73
[2017-04-23] MEDS: BACLOFEN 10 MG TAB PO PRN ×2 (00:10→11:34)
[2017-04-23] MEDS: MILK OF MAGNESIA 30ML SUSP PO PRN (00:25)
[2017-04-23] MEDS: FAMOTIDINE (10MG/ML) 2ML VL IV SCH ×4 (04:00→16:35)
[2017-04-23] MEDS: GABAPENTIN 300 MG CAP PO SCH ×2 (05:45→14:00)
[2017-04-23] MEDS: HYDROcodone-ACET 5/325MG TAB PO PRN (05:47)
[2017-04-23 06:01] VITALS: BP 130/90
[2017-04-23 10:00] VITALS: BP 134/99
[2017-04-23] MEDS ORDERED: ERTAPENEM SOD INJ 1 GM in SODIUM CHL 0.9% 50 ML IV SCH (10:00)
[2017-04-23] MEDS: MORPHINE SULF 30 mg ER tab PO SCH (10:05)
[2017-04-23] MEDS ORDERED: HYDROmorphone HCL 2 MG/ML VL IV ONE (12:30)
[2017-04-23 12:58] VITALS: BP 137/94
[2017-04-23] MEDS ORDERED: INVANZ IV (12:58)
[2017-04-23] MEDS ORDERED: OXYCODONE HCL 5MG TAB PO PRN (15:30)
[2017-04-23 17:12] VITALS: BP 132/98
[2017-04-23 17:21] VITALS: BP 134/99
== END 2017-04-23 20:43 | disposition home or self-care (01) | DRG 252 ==
LOC: EDBD 08:32 → ER 08:35 → TELE 08:36 → TELE-WESTW 21:00
PROVIDERS: ADMIT Internal Medicine; ATTEND Internal Medicine
DX: K66.0 Peritoneal adhesions (postprocedural) (postinfection) (principal); G82.20 Paraplegia, unspecified; R56.9 Unspecified convulsions; N12 Tubulo-interstitial nephritis, not specified as acute or chronic; K21.9 Gastro-esophageal reflux disease without esophagitis; F41.9 Anxiety disorder, unspecified; Z93.3 Colostomy status; D63.8 Anemia in other chronic diseases classified elsewhere; G89.29 Other chronic pain; I10 Essential (primary) hypertension; Z74.01 Bed confinement status; Z82.49 Family history of ischemic heart disease and other diseases of the circulatory system; Z87.440 Personal history of urinary (tract) infections; Z88.1 Allergy status to other antibiotic agents; B96.20 Unspecified Escherichia coli [E. coli] as the cause of diseases classified elsewhere; Z93.6 Other artificial openings of urinary tract status; Z90.6 Acquired absence of other parts of urinary tract; Z71.89 Other specified counseling; B95.8 Unspecified staphylococcus as the cause of diseases classified elsewhere; B95.2 Enterococcus as the cause of diseases classified elsewhere
CPT/HCPCS: 36415; 74176; 80048; 80053; 81001; 82150; 83690; 83735; 85025; 85652; 87040; 87081; 87086; 87088; 87186; 94761; 96361; 96365; 96375; J1335; J1885; J2543; J3490

== ENCOUNTER 2017-07-06 10:05 | Emergency (ER) | payer MEDICAID ==
[~2017-07-06] VITALS: Ht 182.9 cm; Wt 68.0 kg
[~2017-07-06 10:05] MED LIST changes: +FLUC200T35 PO; -HYDR-4072 PO; -LINE600T PO; +MORP60TA25 PO; +PHEN95TA10 PO; +PREG100C PO; +SACC250C PO; +SULF400T11 PO
[2017-07-06] MEDS ORDERED: SODIUM CHLORIDE 0.9% 1,000 ML IVB ONE (10:32)
[2017-07-06] MEDS: ONDANSETRON HCL 4 MG/2 ML VIAL IV ONE (12:30)
[2017-07-06] MEDS ORDERED: HYDROmorphone HCL 2 MG/ML VL IV ONE (12:30)
[2017-07-06 12:47] LABS: Basophils # (auto) 0 uL; Basophils % (auto) 0.8 % (0.0-2.0); CONDITION Y; DEFINITIVE SEE PRINTOUT; Eosinophils # (auto) 0.1 uL; Eosinophils % (auto) 2.3 % (0.0-7.0); Hematocrit 35.3 % (41.0-53.0); Hemoglobin 11.6 g/dL (13.5-17.5); Lymphocytes # (auto) 1.1 uL; Lymphocytes % (auto) 37.7 % (10.0-50.0); Mean Corpuscular Hemoglobin 26.7 pg (28.0-32.0); Mean Corpuscular Hgb Conc. 32.7 g/dL (32.0-36.0); Mean Corpuscular Volume 81.6 fL (80.0-100.0); Mean Platelet Volume 9.4 fL (7.4-10.4); Monocytes # (auto) 0.3 uL; Monocytes % (auto) 9.7 % (0.0-12.0); Neutrophils # (auto) 1.5 uL; Neutrophils % (auto) 49.5 % (37.0-80.0); Platelet Count (auto) 197 10^3/uL (140-450); Red Cell Distribution Width 15.7 % (11.6-16.0)
[2017-07-06 13:00] LABS: Albumin 3.2 g/dL (3.4-5.0); BUN/Creatinine Ratio 18.3; Bilirubin, Total 0.1 mg/dL (0.2-1.0); Potassium 4.4 mmol/L (3.5-5.1); Total Protein 7.1 g/dL (6.4-8.2)
[2017-07-06 13:06] LABS: Urine Bilirubin Negative (Negative); Urine Blood 1+ /uL (Negative); Urine Color Yellow (Yellow); Urine Glucose Normal (Normal); Urine Ketone Negative (Negative); Urine Mucus FEW (None Seen); Urine Nitrite POSITIVE (Negative); Urine RBC 4 /hpf (0 - 3); Urine Squamous Epithelial Cell FEW /hpf (<5); Urine Triple Phosphate Crystal FEW /hpf (None Seen); Urine Urobilinogen Normal (Negative)
[2017-07-06 13:31] VITALS: BP 105/65
== END 2017-07-06 18:50 | disposition home or self-care (01) ==
LOC: ER 10:05
DX: N39.0 Urinary tract infection, site not specified (principal); Z88.1 Allergy status to other antibiotic agents; Z79.899 Other long term (current) drug therapy
CPT/HCPCS: 36415; 80053; 81001; 85025; 87086; 87088; 87186; 96361; 96374; 99284; J1170; J2405; J7030

== ENCOUNTER 2018-06-18 20:08 | Observation (INO) | payer MEDICAID ==
[~2018-06-18] VITALS: Ht 167.6 cm; Wt 63.5 kg
[2018-06-18] MEDS ORDERED: SODIUM CHLORIDE 0.9% 1,000 ML IVB ONE (21:53)
[2018-06-18 23:12] LABS: Basophils # (auto) 0 uL; Basophils % (auto) 0.8 % (0.0-2.0); Eosinophils # (auto) 0.1 uL; Eosinophils % (auto) 3.4 % (0.0-7.0); Hematocrit 36.6 % (41.0-53.0); Hemoglobin 11.9 g/dL (13.5-17.5); Lymphocytes # (auto) 1.3 uL; Lymphocytes % (auto) 32.6 % (10.0-50.0); Mean Corpuscular Hemoglobin 27.8 pg (28.0-32.0); Mean Corpuscular Hgb Conc. 32.5 g/dL (32.0-36.0); Mean Corpuscular Volume 85.7 fL (80.0-100.0); Monocytes # (auto) 0.4 uL; Neutrophils # (auto) 2.1 uL; Neutrophils % (auto) 53.2 % (37.0-80.0); Nucleated Red Blood Cells % 0.1 %; Platelet Count (auto) 156 10^3/uL (140-450); Red Blood Cells 4.27 10^6/uL (4.5-5.90); Red Cell Distribution Width 13.3 % (11.8-14.3)
[2018-06-18 23:33] LABS: Potassium 3.6 mmol/L (3.5-5.1)
[2018-06-18 23:34] LABS: INR 1.02 (0.9-1.15); Partial Thromboplastin Time 32.7 sec (23.78-33.04); Prothrombin Time 10.9 sec (9.27-12.13)
[2018-06-18 23:38] LABS: Albumin 3.3 g/dL (3.4-5.0); BUN/Creatinine Ratio 12.1; Calcium 8.4 mg/dL (8.5-10.1)
[2018-06-18 23:43] LABS: Bilirubin, Total 0.4 mg/dL (0.2-1.0); Total Protein 7.3 g/dL (6.4-8.2)
[2018-06-19] MEDS ORDERED: HYDROcodone-ACET 10/325MG TAB PO ONE
[2018-06-19 01:25] LABS: Urine Bacteria MANY /hpf (None Seen); Urine Blood TRACE /uL (Negative); Urine Budding Yeast FEW /hpf (None Seen); Urine Mucus FEW (None Seen); Urine Specific Gravity 1.005 (1.001-1.035); Urine WBC 131 /hpf (0 - 3)
[2018-06-19 03:00] VITALS: BP 136/82
[2018-06-19 12:35] LABS: Alcohol, Urine < 3.0 mg/dL (0-5); Amphetamine Screen, Urine NEGATIVE (NEGATIVE); Barbiturate Scree,Urine NEGATIVE (NEGATIVE); Benzodiazephine Screen, Urine POSITIVE (NEGATIVE); Cannabinoid Screen, Urine NEGATIVE (NEGATIVE); Cocaine Screen, Urine NEGATIVE (NEGATIVE); Opiate Scree,Urine POSITIVE (NEGATIVE); Phencyclidine Screen, Urine NEGATIVE (NEGATIVE)
== END 2018-06-19 04:39 | disposition home or self-care (01) | DRG 251 ==
LOC: EDBD 20:08 → ER 20:12 → OVERFLOW 20:13 → ER 06-19 04:39
PROVIDERS: ADMIT Anesthesiology; ATTEND Anesthesiology
DX: R10.30 Lower abdominal pain, unspecified (principal); G82.20 Paraplegia, unspecified; N39.0 Urinary tract infection, site not specified; D63.8 Anemia in other chronic diseases classified elsewhere; F41.9 Anxiety disorder, unspecified; K21.9 Gastro-esophageal reflux disease without esophagitis; Z82.49 Family history of ischemic heart disease and other diseases of the circulatory system; Z93.3 Colostomy status; Z88.1 Allergy status to other antibiotic agents
CPT/HCPCS: 36415; 74176; 80053; 80307; 81001; 82150; 83690; 83735; 84484; 85025; 85610; 85730; 87086; 93005; 99285; A6257; G0378; J7030; 96360

== ENCOUNTER 2018-06-25 13:12 | Inpatient (IN) | payer MEDICAID, OTHER ==
[~2018-06-25] VITALS: Ht 167.6 cm; Wt 67.4 kg
[2018-06-25] MEDS ORDERED: SODIUM CHLORIDE 0.9% 1,000 ML IVB ONE (13:27)
[2018-06-25] MEDS ORDERED: KETOROLAC TROMETH 30 MG/ML 1ML VIAL IV ONE (13:30)
[2018-06-25 14:19] LABS: Basophils # (auto) 0 uL; Basophils % (auto) 1.3 % (0.0-2.0); Eosinophils # (auto) 0.1 uL; Eosinophils % (auto) 4.1 % (0.0-7.0); Hematocrit 34.6 % (41.0-53.0); Hemoglobin 11.5 g/dL (13.5-17.5); Lymphocytes # (auto) 1.2 uL; Lymphocytes % (auto) 43.6 % (10.0-50.0); Mean Corpuscular Hemoglobin 28.4 pg (28.0-32.0); Mean Corpuscular Hgb Conc. 33.1 g/dL (32.0-36.0); Mean Corpuscular Volume 85.7 fL (80.0-100.0); Monocytes # (auto) 0.2 uL; Monocytes % (auto) 7.6 % (0.0-12.0); Neutrophils # (auto) 1.2 uL; Neutrophils % (auto) 43.4 % (37.0-80.0); Nucleated Red Blood Cells % 0.1 %; Platelet Count (auto) 198 10^3/uL (140-450); Red Blood Cells 4.04 10^6/uL (4.5-5.90); Red Cell Distribution Width 13.2 % (11.8-14.3); White Blood Cell 2.7 10^3/uL (4.4-10.8)
[2018-06-25 14:33] LABS: Urine WBC None Seen /hpf (0 - 3)
[2018-06-25 14:41] LABS: Calcium 8.5 mg/dL (8.5-10.1); Potassium 4.1 mmol/L (3.5-5.1)
[2018-06-25 14:44] LABS: Bilirubin, Total 0.2 mg/dL (0.2-1.0); Total Protein 6.7 g/dL (6.4-8.2)
[2018-06-25 14:56] LABS: Urine Bacteria NONE SEEN /hpf (None Seen); Urine Blood Negative /uL (Negative); Urine Budding Yeast LOADED /hpf (None Seen); Urine Specific Gravity 1.005 (1.001-1.035)
[2018-06-25] MEDS ORDERED: ACETAMINOPHEN 500 MG TAB PO PRN (16:15)
[2018-06-25] MEDS ORDERED: LORazepam 0.5 MG TAB PO PRN (16:15)
[2018-06-25] MEDS ORDERED: NITROGLYCERIN 0.4 MG SL TAB SL PRN (16:15)
[2018-06-25] MEDS ORDERED: MORPHINE SULF INJ 2 MG/ML SYRINGE 1ML IV PRN (16:15)
[2018-06-25] MEDS ORDERED: VANCOMYCIN PER PHARMACY 0 MG IV SCH (16:15)
[2018-06-25] MEDS ORDERED: PROMETHAZINE HCL 25 MG/ML 1ML IV PRN (16:15)
[2018-06-25] MEDS ORDERED: HYDROcodone-ACET 5/325MG TAB PO PRN (16:15)
[2018-06-25] MEDS ORDERED: ERTAPENEM SOD INJ 1 GM in SODIUM CHL 0.9% 50 ML IV ONE (16:15)
[2018-06-25] MEDS: SODIUM CHLORIDE 0.9% 1,000 ML IV SCH ×2 (16:33→23:05)
[2018-06-25] MEDS: MORPHINE SULFATE 4 MG/ML SYR/VIAL IV PRN ×2 (16:49→22:22)
[2018-06-25 17:19] LABS: CRP High Sensitivity 0.37 mg/dL (< 0.3)
[2018-06-25] MEDS ORDERED: VANCOMYCIN 1GM/250ML 250 ML IV ONE (17:30)
[2018-06-25] MEDS: PREGABALIN 25 MG CAP PO SCH (22:00)
[2018-06-25] MEDS: MORPHINE SULF 30 mg ER tab PO SCH (23:14)
[2018-06-25] MEDS: OXYCODONE HCL 5MG TAB PO SCH (23:14)
[2018-06-25] MEDS: GABAPENTIN 300 MG CAP PO SCH (23:41)
[2018-06-25] MEDS: BACLOFEN 10 MG TAB PO SCH (23:43)
[2018-06-25] MEDS: DOCUSATE SOD 100 MG CAP PO SCH (23:44)
[2018-06-25] MEDS: OXYBUTYNIN CHL 5 MG TAB PO SCH (23:45)
[2018-06-26] VITALS (8 sets, daily range): BP systolic 78–118; BP diastolic 43–77
[2018-06-26] MEDS: SODIUM CHLORIDE 0.9% 1,000 ML IV SCH ×3 (02:00→13:23)
[2018-06-26] MEDS: MORPHINE SULFATE 4 MG/ML SYR/VIAL IV PRN (05:15)
[2018-06-26] MEDS: OXYCODONE HCL 5MG TAB PO SCH ×4 (05:52→22:03)
[2018-06-26] MEDS: BACLOFEN 10 MG TAB PO SCH ×3 (05:53→22:00)
[2018-06-26] MEDS: OXYBUTYNIN CHL 5 MG TAB PO SCH ×3 (05:53→22:11)
[2018-06-26] MEDS: GABAPENTIN 300 MG CAP PO SCH ×3 (05:53→22:03)
[2018-06-26 05:54] LABS: Basophils # (auto) 0 uL; Basophils % (auto) 1.5 % (0.0-2.0); Eosinophils # (auto) 0.1 uL; Eosinophils % (auto) 6.2 % (0.0-7.0); Hematocrit 33.9 % (41.0-53.0); Lymphocytes # (auto) 0.9 uL; Lymphocytes % (auto) 38.8 % (10.0-50.0); Mean Corpuscular Hemoglobin 28.1 pg (28.0-32.0); Mean Corpuscular Hgb Conc. 32.5 g/dL (32.0-36.0); Mean Corpuscular Volume 86.5 fL (80.0-100.0); Monocytes # (auto) 0.2 uL; Monocytes % (auto) 9.5 % (0.0-12.0); Nucleated Red Blood Cells % 0.2 %; Platelet Count (auto) 162 10^3/uL (140-450); Red Blood Cells 3.92 10^6/uL (4.5-5.90); Red Cell Distribution Width 13.1 % (11.8-14.3); White Blood Cell 2.2 10^3/uL (4.4-10.8)
[2018-06-26 06:19] LABS: Albumin 2.7 g/dL (3.4-5.0); Bilirubin, Total 0.3 mg/dL (0.2-1.0); Calcium 7.8 mg/dL (8.5-10.1); Potassium 4.3 mmol/L (3.5-5.1); Total Protein 5.8 g/dL (6.4-8.2)
[2018-06-26] MEDS ORDERED: FAMOTIDINE 20 MG TAB PO SCH (10:00)
[2018-06-26] MEDS: DOCUSATE SOD 100 MG CAP PO SCH ×2 (10:28→22:02)
[2018-06-26] MEDS: PREGABALIN 25 MG CAP PO SCH ×2 (10:28→22:00)
[2018-06-26] MEDS: DICYCLOMINE HCL 10 MG CAP PO SCH (10:28)
[2018-06-26] MEDS: PANTOPRAZOLE 40 MG TAB PO SCH (10:29)
[2018-06-26] MEDS: MULTIPLE VITAMIN TAB PO SCH (10:29)
[2018-06-26] MEDS: MORPHINE SULF 30 mg ER tab PO SCH ×3 (10:32→22:10)
[2018-06-26] MEDS: ERTAPENEM SOD INJ 1 GM in SODIUM CHL 0.9% 50 ML IV SCH (11:29)
[2018-06-26] MEDS: VANCOMYCIN 1GM/250ML 250 ML IV SCH (13:23)
[2018-06-26] MEDS: HYDROmorphone HCL 2 MG/ML VL IV PRN (20:12)
[2018-06-27] VITALS: BP 95/57
[2018-06-27] MEDS: SODIUM CHLORIDE 0.9% 1,000 ML IV SCH ×2 (01:22→08:36)
[2018-06-27 04:00] VITALS: BP 116/47
[2018-06-27] MEDS: GABAPENTIN 300 MG CAP PO SCH ×3 (06:00→21:06)
[2018-06-27] MEDS: OXYCODONE HCL 5MG TAB PO SCH ×3 (06:00→20:52)
[2018-06-27] MEDS: OXYBUTYNIN CHL 5 MG TAB PO SCH ×3 (06:00→21:01)
[2018-06-27] MEDS: BACLOFEN 10 MG TAB PO SCH ×3 (06:00→21:05)
[2018-06-27] MEDS: VANCOMYCIN 1GM/250ML 250 ML IV SCH ×2 (06:05→23:52)
[2018-06-27 08:00] VITALS: BP 97/56
[2018-06-27] MEDS: HYDROmorphone HCL 2 MG/ML VL IV PRN ×3 (08:50→21:06)
[2018-06-27] MEDS: DOCUSATE SOD 100 MG CAP PO SCH ×2 (08:50→21:01)
[2018-06-27] MEDS: ERTAPENEM SOD INJ 1 GM in SODIUM CHL 0.9% 50 ML IV SCH (11:01)
[2018-06-27] MEDS: PANTOPRAZOLE 40 MG TAB PO SCH ×2 (11:02→21:06)
[2018-06-27] MEDS: PREGABALIN 25 MG CAP PO SCH ×2 (11:02→21:06)
[2018-06-27] MEDS: MULTIPLE VITAMIN TAB PO SCH (11:02)
[2018-06-27] MEDS: DICYCLOMINE HCL 10 MG CAP PO SCH (11:02)
[2018-06-27] MEDS: MORPHINE SULF 30 mg ER tab PO SCH (11:03)
[2018-06-27] MEDS ORDERED: FLUCONAZOLE 200MG/100ML 100 ML IV ONE (11:45)
[2018-06-27 11:50] VITALS: BP 97/52
[2018-06-27] MEDS ORDERED: ENOXAPARIN SOD 30 MG/0.3 ML SYRINGE SC ONE (12:00)
[2018-06-27] MEDS ORDERED: PANTOPRAZOLE 40 MG TAB PO ONE (12:00)
[2018-06-27 15:50] VITALS: BP 101/52
[2018-06-27 19:50] VITALS: BP 104/66
[2018-06-27] MEDS ORDERED: BACLOFEN 10 MG TAB ONE ×2 (21:04→21:05)
[2018-06-28] VITALS (7 sets, daily range): BP systolic 88–137; BP diastolic 37–89
[2018-06-28] MEDS: HYDROmorphone HCL 2 MG/ML VL IV PRN ×4 (01:53→23:15)
[2018-06-28] MEDS ORDERED: IOHEXOL 300 MG/ML 100ML BOTTLE IJ ONE (04:08)
[2018-06-28] MEDS: GABAPENTIN 300 MG CAP PO SCH ×3 (06:23→21:46)
[2018-06-28] MEDS: OXYCODONE HCL 5MG TAB PO SCH ×3 (06:24→21:45)
[2018-06-28] MEDS: OXYBUTYNIN CHL 5 MG TAB PO SCH ×3 (06:24→21:46)
[2018-06-28] MEDS: BACLOFEN 10 MG TAB PO SCH ×3 (06:24→21:45)
[2018-06-28] MEDS: DOCUSATE SOD 100 MG CAP PO SCH ×2 (09:46→21:46)
[2018-06-28] MEDS: MULTIPLE VITAMIN TAB PO SCH (09:46)
[2018-06-28] MEDS: PANTOPRAZOLE 40 MG TAB PO SCH ×2 (09:46→21:46)
[2018-06-28] MEDS: FLUCONAZOLE 200MG/100ML 100 ML IV SCH (09:47)
[2018-06-28] MEDS: PREGABALIN 25 MG CAP PO SCH ×2 (09:47→21:45)
[2018-06-28] MEDS: DICYCLOMINE HCL 10 MG CAP PO SCH (09:47)
[2018-06-28] MEDS: ENOXAPARIN SOD 40 MG/0.4 ML SYRINGE SC SCH (09:47)
[2018-06-28] MEDS ORDERED: ENOXAPARIN SOD 30 MG/0.3 ML SYRINGE SC SCH (10:00)
[2018-06-28] MEDS: ERTAPENEM SOD INJ 1 GM in SODIUM CHL 0.9% 50 ML IV SCH (10:57)
[2018-06-28] MEDS: MEROPENEM 1gm/20ml IVPUSH 20 ML IV SCH ×2 (14:00→21:46)
[2018-06-28 20:28] LABS: % Iron Saturation 11.9 % (20-55)
[2018-06-29] VITALS: BP 119/72
[2018-06-29 04:00] VITALS: BP 135/87
[2018-06-29] MEDS: OXYCODONE HCL 5MG TAB PO SCH ×3 (04:57→22:24)
[2018-06-29] MEDS: HYDROmorphone HCL 2 MG/ML VL IV PRN ×3 (04:57→20:36)
[2018-06-29] MEDS: MEROPENEM 1gm/20ml IVPUSH 20 ML IV SCH (05:00)
[2018-06-29] MEDS: OXYBUTYNIN CHL 5 MG TAB PO SCH ×3 (05:00→22:24)
[2018-06-29] MEDS: GABAPENTIN 300 MG CAP PO SCH ×3 (05:00→22:23)
[2018-06-29] MEDS: BACLOFEN 10 MG TAB PO SCH ×3 (05:00→22:23)
[2018-06-29 05:33] LABS: Basophils # (auto) 0 uL; Basophils % (auto) 0.6 % (0.0-2.0); Eosinophils # (auto) 0.1 uL; Eosinophils % (auto) 4.7 % (0.0-7.0); Hematocrit 29.8 % (41.0-53.0); Hemoglobin 9.9 g/dL (13.5-17.5); Mean Corpuscular Hemoglobin 28.2 pg (28.0-32.0); Mean Corpuscular Hgb Conc. 33.1 g/dL (32.0-36.0); Mean Corpuscular Volume 85.4 fL (80.0-100.0); Monocytes # (auto) 0.3 uL; Monocytes % (auto) 9.7 % (0.0-12.0); Neutrophils # (auto) 1.5 uL; Nucleated Red Blood Cells % 0.2 %; Platelet Count (auto) 139 10^3/uL (140-450); Red Blood Cells 3.49 10^6/uL (4.5-5.90); Red Cell Distribution Width 13.1 % (11.8-14.3)
[2018-06-29 05:37] LABS: INR 1.11 (0.9-1.15); Partial Thromboplastin Time 30.5 sec (23.78-33.04); Prothrombin Time 11.8 sec (9.27-12.13)
[2018-06-29 05:47] LABS: Albumin 2.6 g/dL (3.4-5.0); BUN/Creatinine Ratio 5.5; Bilirubin, Total 0.3 mg/dL (0.2-1.0); Calcium 8.1 mg/dL (8.5-10.1); Potassium 3.9 mmol/L (3.5-5.1); Total Protein 5.8 g/dL (6.4-8.2)
[2018-06-29 08:00] VITALS: BP 125/87
[2018-06-29] MEDS: FLUCONAZOLE 200MG/100ML 100 ML IV SCH (09:51)
[2018-06-29] MEDS: DOCUSATE SOD 100 MG CAP PO SCH ×2 (09:51→22:23)
[2018-06-29] MEDS: DICYCLOMINE HCL 10 MG CAP PO SCH (09:51)
[2018-06-29] MEDS: MULTIPLE VITAMIN TAB PO SCH (09:52)
[2018-06-29] MEDS: PANTOPRAZOLE 40 MG TAB PO SCH ×2 (09:52→22:24)
[2018-06-29] MEDS: PREGABALIN 25 MG CAP PO SCH ×2 (09:52→22:22)
[2018-06-29] MEDS ORDERED: FILGRASTIM(TBO) 480 MCG/0.8 ML SYRG SC SCH (10:00)
[2018-06-29] MEDS: ENOXAPARIN SOD 40 MG/0.4 ML SYRINGE SC SCH (10:00)
[2018-06-29 12:00] VITALS: BP 126/82
[2018-06-29] MEDS ORDERED: LIDOCAINE 1% (LOCAL ANESTH.) PF 5ml SDV ONE (13:25)
[2018-06-29] MEDS ORDERED: MIDAZOLAM HCL 1MG/1ML-2 ML VIAL ONE (13:28)
[2018-06-29] MEDS ORDERED: diphenhdrAMINE HCL 50 MG/1 ML VL ONE (13:29)
[2018-06-29] MEDS ORDERED: PROPOFOL 10 MG/ML 20 ML IV ONE (13:29)
[2018-06-29] MEDS ORDERED: HYDROmorphone HCL 2 MG/ML VL IV PRN (13:30)
[2018-06-29] MEDS ORDERED: ONDANSETRON HCL 4 MG/2 ML VIAL IV ONE (13:30)
[2018-06-29] MEDS ORDERED: NALOXONE HCL 0.4 MG/ML VIAL IV PRN (13:30)
[2018-06-29] MEDS ORDERED: GLYCOPYRROLATE 0.2 MG/ML 1ML VIAL ONE (13:33)
[2018-06-29] MEDS ORDERED: CIPROFLOXACIN HCL 500 MG TAB PO ONE (15:00)
[2018-06-29] MEDS ORDERED: CIPROFLOXACIN 400MG/200ML 200 ML IV ONE (15:15)
[2018-06-29 16:00] VITALS: BP 162/94
[2018-06-29 20:00] VITALS: BP 109/77
[2018-06-29] MEDS ORDERED: CIPROFLOXACIN HCL 500 MG TAB PO SCH (22:00)
[2018-06-29] MEDS: CIPROFLOXACIN 400MG/200ML 200 ML IV SCH (22:19)
[2018-06-29] MEDS: TEMAZEPAM 15 MG CAP PO PRN (23:47)
[2018-06-30] VITALS: BP 133/90
[2018-06-30 04:00] VITALS: BP 117/64
[2018-06-30] MEDS: BACLOFEN 10 MG TAB PO SCH ×3 (05:32→22:09)
[2018-06-30] MEDS: OXYBUTYNIN CHL 5 MG TAB PO SCH ×3 (05:33→22:10)
[2018-06-30] MEDS: OXYCODONE HCL 5MG TAB PO SCH (05:33)
[2018-06-30] MEDS: GABAPENTIN 300 MG CAP PO SCH ×3 (05:33→22:09)
[2018-06-30 06:23] LABS: Basophils # (auto) 0.1 uL; Eosinophils # (auto) 0.2 uL; Hemoglobin 10.4 g/dL (13.5-17.5)
[2018-06-30 06:25] LABS: Basophils % (auto) 0.7 % (0.0-2.0); Hematocrit 32.9 % (41.0-53.0); Lymphocytes # (auto) 1.5 uL; Mean Corpuscular Hemoglobin 27.1 pg (28.0-32.0); Mean Corpuscular Hgb Conc. 31.7 g/dL (32.0-36.0); Mean Corpuscular Volume 85.4 fL (80.0-100.0); Monocytes # (auto) 0.6 uL; Monocytes % (auto) 3.7 % (0.0-12.0); Neutrophils # (auto) 14.2 uL; Neutrophils % (auto) 85.6 % (37.0-80.0); Platelet Count (auto) 160 10^3/uL (140-450); Red Blood Cells 3.85 10^6/uL (4.5-5.90); Red Cell Distribution Width 12.9 % (11.8-14.3); White Blood Cell 16.6 10^3/uL (4.4-10.8)
[2018-06-30 06:27] LABS: BUN/Creatinine Ratio 5.5; Calcium 8.4 mg/dL (8.5-10.1); Magnesium 1.8 mg/dL (1.6-2.6); Potassium 3.6 mmol/L (3.5-5.1)
[2018-06-30 08:30] VITALS: BP 132/90
[2018-06-30] MEDS ORDERED: FUROSEMIDE 40 MG/4 ML VIAL ONE (08:59)
[2018-06-30] MEDS: FLUCONAZOLE 200MG/100ML 100 ML IV SCH (09:49)
[2018-06-30] MEDS: DOCUSATE SOD 100 MG CAP PO SCH ×2 (09:49→22:09)
[2018-06-30] MEDS: MULTIPLE VITAMIN TAB PO SCH (09:50)
[2018-06-30] MEDS: PANTOPRAZOLE 40 MG TAB PO SCH ×2 (09:50→22:10)
[2018-06-30] MEDS: PREGABALIN 25 MG CAP PO SCH ×2 (09:50→22:08)
[2018-06-30] MEDS: ENOXAPARIN SOD 40 MG/0.4 ML SYRINGE SC SCH (09:50)
[2018-06-30] MEDS: HYDROmorphone HCL 2 MG/ML VL IV PRN ×2 (09:58→20:09)
[2018-06-30] MEDS: DICYCLOMINE HCL 10 MG CAP PO SCH (10:28)
[2018-06-30] MEDS: CIPROFLOXACIN 400MG/200ML 200 ML IV SCH ×2 (10:29→22:34)
[2018-06-30 11:45] VITALS: BP 97/70
[2018-06-30 16:03] VITALS: BP 111/69
[2018-06-30 19:43] VITALS: BP 117/77
[2018-06-30] MEDS: TEMAZEPAM 15 MG CAP PO PRN (22:10)
[2018-07-01] VITALS (7 sets, daily range): BP systolic 89–136; BP diastolic 60–93
[2018-07-01] MEDS: HYDROmorphone HCL 2 MG/ML VL IV PRN ×4 (04:33→23:07)
[2018-07-01] MEDS: BACLOFEN 10 MG TAB PO SCH ×3 (06:41→21:12)
[2018-07-01] MEDS: OXYBUTYNIN CHL 5 MG TAB PO SCH ×3 (06:41→21:13)
[2018-07-01] MEDS: GABAPENTIN 300 MG CAP PO SCH ×3 (06:42→21:12)
[2018-07-01] MEDS: LACTULOSE 20Gm/30ML SOLN PO PRN (06:47)
[2018-07-01] MEDS: FLUCONAZOLE 200MG/100ML 100 ML IV SCH (10:00)
[2018-07-01] MEDS: CIPROFLOXACIN 400MG/200ML 200 ML IV SCH ×2 (10:45→21:12)
[2018-07-01] MEDS: PANTOPRAZOLE 40 MG TAB PO SCH ×2 (10:45→21:13)
[2018-07-01] MEDS: DOCUSATE SOD 100 MG CAP PO SCH ×2 (10:45→21:13)
[2018-07-01] MEDS: MULTIPLE VITAMIN TAB PO SCH (10:45)
[2018-07-01] MEDS: DICYCLOMINE HCL 10 MG CAP PO SCH (10:46)
[2018-07-01] MEDS: ENOXAPARIN SOD 40 MG/0.4 ML SYRINGE SC SCH (10:46)
[2018-07-01] MEDS: PREGABALIN 25 MG CAP PO SCH ×2 (10:46→21:13)
[2018-07-01] MEDS: Ensure HIGH Protein Chocolate 8oz Bottle PO SCH ×2 (12:00→18:17)
[2018-07-02 01:12] VITALS: BP 114/81
[2018-07-02] MEDS: HYDROmorphone HCL 2 MG/ML VL IV PRN ×3 (04:00→17:31)
[2018-07-02 05:40] VITALS: BP 94/64
[2018-07-02] MEDS: OXYBUTYNIN CHL 5 MG TAB PO SCH ×3 (05:59→22:06)
[2018-07-02] MEDS: GABAPENTIN 300 MG CAP PO SCH ×3 (05:59→22:07)
[2018-07-02] MEDS: BACLOFEN 10 MG TAB PO SCH ×3 (05:59→22:08)
[2018-07-02] MEDS: Ensure HIGH Protein Chocolate 8oz Bottle PO SCH ×3 (08:04→18:12)
[2018-07-02 08:30] VITALS: BP 94/57
[2018-07-02] MEDS: PREGABALIN 25 MG CAP PO SCH ×2 (10:00→22:00)
[2018-07-02] MEDS: ENOXAPARIN SOD 40 MG/0.4 ML SYRINGE SC SCH (10:42)
[2018-07-02] MEDS: PANTOPRAZOLE 40 MG TAB PO SCH ×2 (10:42→22:00)
[2018-07-02] MEDS: CIPROFLOXACIN 400MG/200ML 200 ML IV SCH ×2 (10:42→22:06)
[2018-07-02] MEDS: MULTIPLE VITAMIN TAB PO SCH (10:42)
[2018-07-02] MEDS: DICYCLOMINE HCL 10 MG CAP PO SCH (10:43)
[2018-07-02] MEDS: DOCUSATE SOD 100 MG CAP PO SCH ×2 (10:43→22:06)
[2018-07-02] MEDS: FLUCONAZOLE 200MG/100ML 100 ML IV SCH (12:20)
[2018-07-02] MEDS: KETOROLAC TROMETH 30 MG/ML 1ML VIAL IV PRN ×2 (12:21→22:06)
[2018-07-02 12:30] VITALS: BP 115/68
[2018-07-02] MEDS: LACTULOSE 20Gm/30ML SOLN PO PRN (14:44)
[2018-07-02 16:28] LABS: Basophils # (auto) 0 uL; Basophils % (auto) 0.7 % (0.0-2.0); Eosinophils # (auto) 0.2 uL; Eosinophils % (auto) 3.7 % (0.0-7.0); Hematocrit 32.5 % (41.0-53.0); Hemoglobin 10.7 g/dL (13.5-17.5); Lymphocytes # (auto) 1.2 uL; Lymphocytes % (auto) 29.9 % (10.0-50.0); Mean Corpuscular Hemoglobin 27.9 pg (28.0-32.0); Mean Corpuscular Volume 84.6 fL (80.0-100.0); Monocytes # (auto) 0.3 uL; Monocytes % (auto) 8.1 % (0.0-12.0); Neutrophils # (auto) 2.4 uL; Neutrophils % (auto) 57.6 % (37.0-80.0); Nucleated Red Blood Cells % 0.3 %; Platelet Count (auto) 161 10^3/uL (140-450); Red Blood Cells 3.84 10^6/uL (4.5-5.90); Red Cell Distribution Width 12.8 % (11.8-14.3); White Blood Cell 4.2 10^3/uL (4.4-10.8)
[2018-07-02 16:44] LABS: Albumin 2.8 g/dL (3.4-5.0); BUN/Creatinine Ratio 9.8; Bilirubin, Total 0.2 mg/dL (0.2-1.0); Calcium 8.1 mg/dL (8.5-10.1); Potassium 3.8 mmol/L (3.5-5.1); Total Protein 6.4 g/dL (6.4-8.2)
[2018-07-02 17:00] VITALS: BP 136/100
[2018-07-02 22:00] VITALS: BP 152/93
[2018-07-03] MEDS: TEMAZEPAM 15 MG CAP PO PRN ×3 (01:23→23:11)
[2018-07-03] MEDS: HYDROmorphone HCL 2 MG/ML VL IV PRN ×4 (01:23→20:56)
[2018-07-03] MEDS: KETOROLAC TROMETH 30 MG/ML 1ML VIAL IV PRN ×3 (04:27→18:53)
[2018-07-03 05:05] VITALS: BP 119/78
[2018-07-03] MEDS: OXYBUTYNIN CHL 5 MG TAB PO SCH ×3 (06:52→20:57)
[2018-07-03] MEDS: GABAPENTIN 300 MG CAP PO SCH ×3 (06:53→20:57)
[2018-07-03] MEDS: BACLOFEN 10 MG TAB PO SCH ×3 (06:53→21:23)
[2018-07-03] MEDS: Ensure HIGH Protein Chocolate 8oz Bottle PO SCH ×3 (08:27→18:53)
[2018-07-03 09:00] VITALS: BP 120/76
[2018-07-03] MEDS: ENOXAPARIN SOD 40 MG/0.4 ML SYRINGE SC SCH ×2 (10:00→11:40)
[2018-07-03] MEDS: PREGABALIN 25 MG CAP PO SCH ×2 (10:00→20:59)
[2018-07-03] MEDS: MULTIPLE VITAMIN TAB PO SCH (11:40)
[2018-07-03] MEDS: DOCUSATE SOD 100 MG CAP PO SCH ×2 (11:40→20:57)
[2018-07-03] MEDS: PANTOPRAZOLE 40 MG TAB PO SCH ×2 (11:40→20:58)
[2018-07-03] MEDS: DICYCLOMINE HCL 10 MG CAP PO SCH (11:40)
[2018-07-03] MEDS: CIPROFLOXACIN 400MG/200ML 200 ML IV SCH ×2 (11:41→20:58)
[2018-07-03 12:59] VITALS: BP 139/91
[2018-07-03] MEDS: FLUCONAZOLE 200MG/100ML 100 ML IV SCH (13:07)
[2018-07-03] MEDS: LACTULOSE 20Gm/30ML SOLN PO PRN (15:14)
[2018-07-03] MEDS: HYOSCYAMINE SULF 0.125 MG TAB PO PRN ×2 (16:40→23:10)
[2018-07-03 17:00] VITALS: BP 142/91
[2018-07-03 22:00] VITALS: BP 140/89
[2018-07-04 05:30] VITALS: BP 130/89
[2018-07-04] MEDS: GABAPENTIN 300 MG CAP PO SCH ×3 (05:46→22:20)
[2018-07-04] MEDS: OXYBUTYNIN CHL 5 MG TAB PO SCH ×3 (05:46→22:23)
[2018-07-04] MEDS: BACLOFEN 10 MG TAB PO SCH ×3 (05:47→22:19)
[2018-07-04] MEDS: HYDROmorphone HCL 2 MG/ML VL IV PRN ×3 (05:47→22:05)
[2018-07-04] MEDS: Ensure HIGH Protein Chocolate 8oz Bottle PO SCH ×3 (07:57→18:16)
[2018-07-04 09:00] VITALS: BP 100/65
[2018-07-04] MEDS: PREGABALIN 25 MG CAP PO SCH ×2 (10:00→21:59)
[2018-07-04] MEDS: MULTIPLE VITAMIN TAB PO SCH (10:35)
[2018-07-04] MEDS: DICYCLOMINE HCL 10 MG CAP PO SCH (10:35)
[2018-07-04] MEDS: CIPROFLOXACIN 400MG/200ML 200 ML IV SCH ×2 (10:35→22:07)
[2018-07-04] MEDS: DOCUSATE SOD 100 MG CAP PO SCH ×2 (10:36→22:25)
[2018-07-04] MEDS: ENOXAPARIN SOD 40 MG/0.4 ML SYRINGE SC SCH (10:36)
[2018-07-04] MEDS: PANTOPRAZOLE 40 MG TAB PO SCH ×3 (10:37→22:25)
[2018-07-04] MEDS: KETOROLAC TROMETH 30 MG/ML 1ML VIAL IV PRN ×2 (10:49→17:01)
[2018-07-04] MEDS: SODIUM FERR GLUC 62.5MG/5ML 125 MG in SODIUM CHL 0.9% 100 ML IV SCH (12:59)
[2018-07-04 13:00] VITALS: BP 121/78
[2018-07-04] MEDS: FLUCONAZOLE 200MG/100ML 100 ML IV SCH (13:44)
[2018-07-04 16:50] VITALS: BP 121/76
[2018-07-04 22:00] VITALS: BP 128/84
[2018-07-04] MEDS: METOCLOPRAMIDE HCL 10 MG TAB PO SCH (22:20)
[2018-07-04] MEDS: ASCORBIC ACID 500 MG TAB PO SCH (22:22)
[2018-07-04] MEDS: SUCRALFATE 1 GM/10 ML ORAL SUSP PO SCH (22:23)
[2018-07-05] MEDS: TEMAZEPAM 15 MG CAP PO PRN ×2 (02:00→22:31)
[2018-07-05] MEDS: KETOROLAC TROMETH 30 MG/ML 1ML VIAL IV PRN ×2 (02:24→21:23)
[2018-07-05 05:40] VITALS: BP 134/83
[2018-07-05] MEDS: BACLOFEN 10 MG TAB PO SCH ×4 (06:00→21:21)
[2018-07-05] MEDS: SUCRALFATE 1 GM/10 ML ORAL SUSP PO SCH ×4 (06:57→21:21)
[2018-07-05] MEDS: OXYBUTYNIN CHL 5 MG TAB PO SCH ×3 (06:57→21:21)
[2018-07-05] MEDS: GABAPENTIN 300 MG CAP PO SCH ×3 (06:57→21:22)
[2018-07-05] MEDS: METOCLOPRAMIDE HCL 10 MG TAB PO SCH ×4 (06:58→21:22)
[2018-07-05] MEDS: HYDROmorphone HCL 2 MG/ML VL IV PRN ×3 (07:01→18:35)
[2018-07-05] MEDS ORDERED: FILGRASTIM(TBO) 480 MCG/0.8 ML SYRG SC ONE (08:00)
[2018-07-05] MEDS: Ensure HIGH Protein Chocolate 8oz Bottle PO SCH ×3 (08:09→18:35)
[2018-07-05] MEDS: DOCUSATE SOD 100 MG CAP PO SCH ×2 (08:11→21:21)
[2018-07-05] MEDS: ASCORBIC ACID 500 MG TAB PO SCH ×2 (08:11→21:22)
[2018-07-05] MEDS: PANTOPRAZOLE 40 MG TAB PO SCH ×2 (08:11→21:22)
[2018-07-05] MEDS: MULTIPLE VITAMIN TAB PO SCH (08:11)
[2018-07-05] MEDS: DICYCLOMINE HCL 10 MG CAP PO SCH (08:11)
[2018-07-05] MEDS: ENOXAPARIN SOD 40 MG/0.4 ML SYRINGE SC SCH (08:11)
[2018-07-05] MEDS: PREGABALIN 25 MG CAP PO SCH ×3 (08:11→21:44)
[2018-07-05 09:00] VITALS: BP 98/64
[2018-07-05] MEDS: CIPROFLOXACIN 400MG/200ML 200 ML IV SCH ×2 (10:00→21:20)
[2018-07-05] MEDS: LACTULOSE 20Gm/30ML SOLN PO PRN (10:02)
[2018-07-05] MEDS: SODIUM FERR GLUC 62.5MG/5ML 125 MG in SODIUM CHL 0.9% 100 ML IV SCH (12:24)
[2018-07-05 13:00] VITALS: BP 95/64
[2018-07-05] MEDS: FLUCONAZOLE 200MG/100ML 100 ML IV SCH (13:49)
[2018-07-05 14:38] LABS: Basophils # (auto) 0 uL; Basophils % (auto) 0.3 % (0.0-2.0); Eosinophils # (auto) 0.1 uL; Eosinophils % (auto) 0.8 % (0.0-7.0); Hematocrit 33.5 % (41.0-53.0); Hemoglobin 10.9 g/dL (13.5-17.5); Lymphocytes # (auto) 0.9 uL; Lymphocytes % (auto) 8.3 % (10.0-50.0); Mean Corpuscular Hemoglobin 27.8 pg (28.0-32.0); Mean Corpuscular Hgb Conc. 32.5 g/dL (32.0-36.0); Mean Corpuscular Volume 85.4 fL (80.0-100.0); Monocytes # (auto) 0.9 uL; Monocytes % (auto) 8.7 % (0.0-12.0); Neutrophils # (auto) 8.8 uL; Neutrophils % (auto) 81.9 % (37.0-80.0); Nucleated Red Blood Cells % 0.1 %; Platelet Count (auto) 162 10^3/uL (140-450); Red Blood Cells 3.92 10^6/uL (4.5-5.90); Red Cell Distribution Width 13.3 % (11.8-14.3); White Blood Cell 10.7 10^3/uL (4.4-10.8)
[2018-07-05 14:57] LABS: Albumin 2.7 g/dL (3.4-5.0); BUN/Creatinine Ratio 12.6; Potassium 4.1 mmol/L (3.5-5.1)
[2018-07-05 15:00] LABS: Bilirubin, Total 0.2 mg/dL (0.2-1.0)
[2018-07-05 17:00] VITALS: BP 106/68
[2018-07-05 22:00] VITALS: BP 99/59
[2018-07-06 05:00] VITALS: BP 112/72
[2018-07-06] MEDS: OXYBUTYNIN CHL 5 MG TAB PO SCH ×3 (06:18→21:39)
[2018-07-06] MEDS: BACLOFEN 10 MG TAB PO SCH ×3 (06:18→21:40)
[2018-07-06] MEDS: GABAPENTIN 300 MG CAP PO SCH ×3 (06:18→21:35)
[2018-07-06] MEDS: SUCRALFATE 1 GM/10 ML ORAL SUSP PO SCH ×4 (06:18→21:40)
[2018-07-06] MEDS: HYDROmorphone HCL 2 MG/ML VL IV PRN ×4 (06:19→21:53)
[2018-07-06] MEDS: METOCLOPRAMIDE HCL 10 MG TAB PO SCH ×4 (06:19→21:42)
[2018-07-06] MEDS: Ensure HIGH Protein Chocolate 8oz Bottle PO SCH ×3 (08:00→18:43)
[2018-07-06] MEDS ORDERED: HYOSCYAMINE SULF 0.125 MG ODT TAB PO PRN (08:30)
[2018-07-06 08:52] VITALS: BP 90/56
[2018-07-06] MEDS: CIPROFLOXACIN 400MG/200ML 200 ML IV SCH ×2 (10:20→21:34)
[2018-07-06] MEDS: PANTOPRAZOLE 40 MG TAB PO SCH ×2 (10:21→21:36)
[2018-07-06] MEDS: DOCUSATE SOD 100 MG CAP PO SCH ×2 (10:21→21:38)
[2018-07-06] MEDS: MULTIPLE VITAMIN TAB PO SCH (10:21)
[2018-07-06] MEDS: DICYCLOMINE HCL 10 MG CAP PO SCH (10:22)
[2018-07-06] MEDS: PREGABALIN 25 MG CAP PO SCH ×2 (10:22→21:35)
[2018-07-06] MEDS: ASCORBIC ACID 500 MG TAB PO SCH ×2 (10:22→21:36)
[2018-07-06] MEDS: ENOXAPARIN SOD 40 MG/0.4 ML SYRINGE SC SCH (10:23)
[2018-07-06 12:24] VITALS: BP 111/70
[2018-07-06] MEDS: SODIUM FERR GLUC 62.5MG/5ML 125 MG in SODIUM CHL 0.9% 100 ML IV SCH (13:59)
[2018-07-06] MEDS: FLUCONAZOLE 200MG/100ML 100 ML IV SCH (15:07)
[2018-07-06 17:55] VITALS: BP 130/78
[2018-07-06 22:00] VITALS: BP 113/71
[2018-07-07] MEDS: TEMAZEPAM 15 MG CAP PO PRN (00:44)
[2018-07-07] MEDS: KETOROLAC TROMETH 30 MG/ML 1ML VIAL IV PRN (01:28)
[2018-07-07] MEDS: HYDROmorphone HCL 2 MG/ML VL IV PRN ×4 (02:54→19:29)
[2018-07-07 05:00] VITALS: BP 123/82
[2018-07-07] MEDS: OXYBUTYNIN CHL 5 MG TAB PO SCH ×3 (06:38→21:16)
[2018-07-07] MEDS: GABAPENTIN 300 MG CAP PO SCH ×3 (06:38→21:16)
[2018-07-07] MEDS: METOCLOPRAMIDE HCL 10 MG TAB PO SCH ×4 (06:38→21:17)
[2018-07-07] MEDS: SUCRALFATE 1 GM/10 ML ORAL SUSP PO SCH ×4 (06:39→21:17)
[2018-07-07 09:04] VITALS: BP 124/83
[2018-07-07] MEDS: CIPROFLOXACIN 400MG/200ML 200 ML IV SCH ×2 (09:36→21:15)
[2018-07-07] MEDS: DOCUSATE SOD 100 MG CAP PO SCH ×2 (09:36→21:17)
[2018-07-07] MEDS: PREGABALIN 25 MG CAP PO SCH ×2 (09:36→21:17)
[2018-07-07] MEDS: BACLOFEN 10 MG TAB PO SCH ×2 (09:37→16:57)
[2018-07-07] MEDS: PANTOPRAZOLE 40 MG TAB PO SCH ×2 (09:37→21:17)
[2018-07-07] MEDS: DICYCLOMINE HCL 10 MG CAP PO SCH (09:37)
[2018-07-07] MEDS: MULTIPLE VITAMIN TAB PO SCH (09:37)
[2018-07-07] MEDS: ASCORBIC ACID 500 MG TAB PO SCH ×2 (09:38→21:16)
[2018-07-07] MEDS: Ensure HIGH Protein Chocolate 8oz Bottle PO SCH ×3 (09:38→18:12)
[2018-07-07] MEDS: ENOXAPARIN SOD 40 MG/0.4 ML SYRINGE SC SCH (09:38)
[2018-07-07 12:11] VITALS: BP 139/88
[2018-07-07] MEDS: SODIUM FERR GLUC 62.5MG/5ML 125 MG in SODIUM CHL 0.9% 100 ML IV SCH (13:22)
[2018-07-07] MEDS: FLUCONAZOLE 200MG/100ML 100 ML IV SCH (14:23)
[2018-07-07 17:26] VITALS: BP 134/94
[2018-07-07] MEDS: LACTULOSE 20Gm/30ML SOLN PO PRN (21:07)
[2018-07-07 22:00] VITALS: BP 154/93
[2018-07-08] MEDS: BACLOFEN 10 MG TAB PO SCH ×3 (00:21→16:32)
[2018-07-08] MEDS: HYDROmorphone HCL 2 MG/ML VL IV PRN ×3 (02:25→18:18)
[2018-07-08 05:00] VITALS: BP 121/88
[2018-07-08] MEDS: SUCRALFATE 1 GM/10 ML ORAL SUSP PO SCH ×3 (06:22→17:59)
[2018-07-08] MEDS: GABAPENTIN 300 MG CAP PO SCH ×2 (06:22→14:12)
[2018-07-08] MEDS: METOCLOPRAMIDE HCL 10 MG TAB PO SCH ×3 (06:23→17:59)
[2018-07-08] MEDS: OXYBUTYNIN CHL 5 MG TAB PO SCH ×2 (06:23→13:47)
[2018-07-08 07:43] VITALS: BP 142/95
[2018-07-08] MEDS: Ensure HIGH Protein Chocolate 8oz Bottle PO SCH ×3 (09:27→17:59)
[2018-07-08] MEDS: DOCUSATE SOD 100 MG CAP PO SCH (09:35)
[2018-07-08] MEDS: ASCORBIC ACID 500 MG TAB PO SCH (09:35)
[2018-07-08] MEDS: MULTIPLE VITAMIN TAB PO SCH (09:35)
[2018-07-08] MEDS: ENOXAPARIN SOD 40 MG/0.4 ML SYRINGE SC SCH (09:35)
[2018-07-08] MEDS: DICYCLOMINE HCL 10 MG CAP PO SCH (09:35)
[2018-07-08] MEDS: PREGABALIN 25 MG CAP PO SCH ×2 (09:35→09:43)
[2018-07-08] MEDS: PANTOPRAZOLE 40 MG TAB PO SCH (09:35)
[2018-07-08] MEDS: CIPROFLOXACIN 400MG/200ML 200 ML IV SCH (09:36)
[2018-07-08 11:57] VITALS: BP 159/99
[2018-07-08] MEDS: SODIUM FERR GLUC 62.5MG/5ML 125 MG in SODIUM CHL 0.9% 100 ML IV SCH (13:36)
[2018-07-08] MEDS: FLUCONAZOLE 200MG/100ML 100 ML IV SCH ×2 (13:47→14:00)
[2018-07-08 18:46] VITALS: BP 132/90
== END 2018-07-08 21:00 | disposition home or self-care (01) | DRG 241 ==
LOC: EDBD 13:12 → ER 13:12 → OVERFLOW 13:13 → DOU IN ICU 23:44 → TELE-EAST 07-02 00:30 → EAST 07-04 16:41
PROVIDERS: ADMIT Internal Medicine; ATTEND Internal Medicine Pulmonary Disease
PROC: 0DB68ZX Excision of Stomach, Via Natural or Artificial Opening Endoscopic, Diagnostic (ICD-10-PCS; principal; 2018-06-29 13:21)
DX: K29.60 Other gastritis without bleeding (principal); G82.50 Quadriplegia, unspecified; I95.9 Hypotension, unspecified; D70.9 Neutropenia, unspecified; G82.20 Paraplegia, unspecified; E44.1 Mild protein-calorie malnutrition; E88.09 Other disorders of plasma-protein metabolism, not elsewhere classified; F11.20 Opioid dependence, uncomplicated; K63.89 Other specified diseases of intestine; K66.0 Peritoneal adhesions (postprocedural) (postinfection); N13.6 Pyonephrosis; B96.5 Pseudomonas (aeruginosa) (mallei) (pseudomallei) as the cause of diseases classified elsewhere; B37.49 Other urogenital candidiasis; F32.9 Major depressive disorder, single episode, unspecified; F41.9 Anxiety disorder, unspecified; G89.29 Other chronic pain; I10 Essential (primary) hypertension; I25.10 Atherosclerotic heart disease of native coronary artery without angina pectoris; K21.9 Gastro-esophageal reflux disease without esophagitis; K59.00 Constipation, unspecified; M54.9 Dorsalgia, unspecified; M19.90 Unspecified osteoarthritis, unspecified site; L89.899 Pressure ulcer of other site, unspecified stage; N31.9 Neuromuscular dysfunction of bladder, unspecified; Z16.19 Resistance to other specified beta lactam antibiotics; Z82.0 Family history of epilepsy and other diseases of the nervous system; Z82.49 Family history of ischemic heart disease and other diseases of the circulatory system; Z93.3 Colostomy status; Z93.6 Other artificial openings of urinary tract status; Z68.24 Body mass index [BMI] 24.0-24.9, adult; Z87.828 Personal history of other (healed) physical injury and trauma; Z88.1 Allergy status to other antibiotic agents; Z88.8 Allergy status to other drugs, medicaments and biological substances; Z79.899 Other long term (current) drug therapy
CPT/HCPCS: 36415; 43239; 71045; 74177; 76700; 78707; 80048; 80053; 80202; 81001; 82150; 83540; 83550; 83605; 83690; 83735; 84443; 85025; 85610; 85652; 85730; 86141; 86850; 86900; 86901; 87040; 87081; 87086; 87088; 87186; 87493; 96361; 96374; 96375; 96379; 99291; A6257; J1335; J1447; J1450; J1885; J2250; J2704

== ENCOUNTER 2018-10-29 10:59 | Emergency (ER) | payer MEDICAID ==
[~2018-10-29] VITALS: Ht 172.7 cm; Wt 63.5 kg
[2018-10-29] MEDS ORDERED: SODIUM CHLORIDE 0.9% 1,000 ML IV ONE ×2 (11:02)
[2018-10-29 15:15] LABS: INR 1.07 (0.9-1.15); Partial Thromboplastin Time 26.9 sec (23.78-33.04); Prothrombin Time 11.4 sec (9.27-12.13)
[2018-10-29 15:16] LABS: Alanine Aminotransferase 27 U/L (16-61); Albumin 3.5 g/dL (3.4-5.0); Anion Gap 9 (5-15); Aspartate Aminotransferase 20 U/L (15-37); BUN/Creatinine Ratio 17.4; Basophils # (auto) 0 uL; Blood Urea Nitrogen 15 mg/dL (7-18); Calcium 8.5 mg/dL (8.5-10.1); Carbon Dioxide 20 mmol/L (21-32); Chloride 115 mmol/L (98-107); Eosinophils # (auto) 0.1 uL; Eosinophils % (auto) 2.4 % (0.0-7.0); GFR African American 122 mL/min; GFR Non-African American 100 mL/min; Glucose 94 mg/dL (74-106); Hemoglobin 13.1 g/dL (13.5-17.5); Lymphocytes # (auto) 1.3 uL; Lymphocytes % (auto) 38.8 % (10.0-50.0); Mean Corpuscular Hemoglobin 27.3 pg (28.0-32.0); Mean Corpuscular Hgb Conc. 32.1 g/dL (32.0-36.0); Mean Corpuscular Volume 85.2 fL (80.0-100.0); Monocytes # (auto) 0.2 uL; Monocytes % (auto) 5.8 % (0.0-12.0); Neutrophils # (auto) 1.7 uL; Nucleated Red Blood Cells % 0.2 %; Platelet Count (auto) 181 10^3/uL (140-450); Red Cell Distribution Width 13.7 % (11.8-14.3); Sodium 144 mmol/L (136-145); White Blood Cell 3.3 10^3/uL (4.4-10.8)
[2018-10-29 15:22] LABS: Alkaline Phosphatase 94 U/L (45-117); Bilirubin, Total 0.2 mg/dL (0.2-1.0); Total Protein 7.3 g/dL (6.4-8.2)
[2018-10-29 16:10] VITALS: BP 110/70
== END 2018-10-29 18:46 | disposition home or self-care (01) ==
LOC: EDBD 10:59 → ER 11:00
DX: N39.0 Urinary tract infection, site not specified (principal); K59.00 Constipation, unspecified; K21.9 Gastro-esophageal reflux disease without esophagitis; I10 Essential (primary) hypertension; Z88.1 Allergy status to other antibiotic agents
CPT/HCPCS: 36415; 71045; 74176; 80053; 81002; 83605; 84484; 85025; 85610; 85730; 87040; 93005

== ENCOUNTER 2019-07-18 10:56 | Inpatient (IN) | payer MEDICAID ==
[~2019-07-18] VITALS: Ht 185.4 cm; Wt 59.8 kg
[~2019-07-18 10:56] MED LIST changes: -OXY5T PO; +PERCOT PO; -SULF400T11 PO
[2019-07-18] MEDS ORDERED: SODIUM CHLORIDE 0.9% 1,000 ML IV ONE ×2 (11:08→14:00)
[2019-07-18] MEDS ORDERED: ONDANSETRON HCL 4 MG/2 ML VIAL IV ONE (11:15)
[2019-07-18] MEDS ORDERED: MORPHINE SULFATE 4 MG/ML SYR/VIAL IV ONE ×2 (11:15→13:15)
[2019-07-18 12:04] LABS: Basophils # (auto) 0 uL; Basophils % (auto) 1.8 % (0.0-2.0); Eosinophils # (auto) 0.1 uL; Hematocrit 36.1 % (41.0-53.0); Hemoglobin 11.7 g/dL (13.5-17.5); Lymphocytes # (auto) 1.2 uL; Lymphocytes % (auto) 50.6 % (10.0-50.0); Mean Corpuscular Hemoglobin 27.2 pg (28.0-32.0); Mean Corpuscular Hgb Conc. 32.3 g/dL (32.0-36.0); Mean Corpuscular Volume 84.2 fL (80.0-100.0); Monocytes # (auto) 0.2 uL; Monocytes % (auto) 7.3 % (0.0-12.0); Neutrophils # (auto) 0.9 uL; Neutrophils % (auto) 37.3 % (37.0-80.0); Nucleated Red Blood Cells % 0.3 %; Platelet Count (auto) 154 10^3/uL (140-450); Red Blood Cells 4.28 10^6/uL (4.5-5.90); Red Cell Distribution Width 14.7 % (11.8-14.3); White Blood Cell 2.4 10^3/uL (4.4-10.8)
[2019-07-18 12:58] LABS: Albumin 3.2 g/dL (3.4-5.0); BUN/Creatinine Ratio 13.8; Calcium 8.5 mg/dL (8.5-10.1); Potassium 4.2 mmol/L (3.5-5.1)
[2019-07-18 13:01] LABS: Bilirubin, Total 0.3 mg/dL (0.2-1.0); Total Protein 6.6 g/dL (6.4-8.2)
[2019-07-18 13:13] LABS: Urine Bacteria NONE SEEN /hpf (None Seen); Urine Blood Negative /uL (Negative); Urine Budding Yeast OCCASIONAL /hpf (None Seen); Urine Mucus FEW (None Seen); Urine Specific Gravity 1.002 (1.001-1.035); Urine WBC 8 /hpf (0 - 3)
[2019-07-18] MEDS ORDERED: ONDANSETRON HCL 4 MG/2 ML VIAL IV PRN (14:00)
[2019-07-18] MEDS ORDERED: NITROGLYCERIN 0.4 MG SL TAB SL PRN (14:00)
[2019-07-18] MEDS ORDERED: MORPHINE SULF INJ 2 MG/ML SYRINGE 1ML IV PRN (14:00)
[2019-07-18] MEDS ORDERED: IOHEXOL 300 MG/ML 100ML BOTTLE IJ ONE (14:16)
[2019-07-18] MEDS ORDERED: OMNIPAQUE ORAL SOLN 500ml 12mg/ml PO ONE (14:17)
[2019-07-18 16:00] VITALS: BP 116/62
--- NOTE | 2019-07-18 16:30 | NUR ---
Midline Placement: Patient educated on need for midline placement. All risks and benefits explained and all questions and concerns addresses prior to procedure. 18g/10cm midline inserted via RIGHT BASILIC vein using Ultrasound. Sterile technique utilized. Blood return obtained from SINGLE lumen and flushed easily with NS using proper technique. Midline secured with saline lock; biodisc and occlusive dressing applied. Primary RN notified. Midline lot # [id number]. SPOKE WITH PRIMARY RN ABOUT MIDLINE. MIDLINE IS DIFFICULT TO FLUSH, HOWEVER THERE WAS BLOOD RETURN AND BLOOD DRAW. NO SWELLING TO PAIN NOTED AT SITE.
--- NOTE | 2019-07-18 16:42 | NUR ---
MS admit from ER HELGA DAVIDSON admitted to tele/MS after SBAR received. Patient oriented to VI MERCER, primary RN, unit, room, bed, and unit policies regarding patient care and visiting hours. Patient weighed by bed scale and encouraged to call if they need something. All questions and concerns addressed, patient verbalized understanding.
[2019-07-18 16:58] VITALS: BP 116/62
[2019-07-18] MEDS ORDERED: PNEUMOCOCCAL VACC POLYS 25 MCG/0.5 ML VIAL IM ONE (17:15)
[2019-07-18] MEDS: HYDROmorphone HCL 2 MG/ML VL IV PRN ×2 (17:24→22:24)
--- NOTE | 2019-07-18 18:36 | NUR ---
Spoke to Chaim SAFETY AND SECURITY MANAGER regarding it is ok to do oral contrast separately IV contrast due to NO IV access for IV contrast. Chaim stated it is ok.
--- NOTE | 2019-07-18 19:25 | NUR ---
Opening Shift Note Received report from Raysa WOLFE. Assumed care of patient, awake and alert. No S/S of distress/SOB or pain. Instructed on POC and to call for assist PRN. Fall precaution measures in place, will continue to monitor for changes Q1hr and PRN.
[2019-07-18 21:40] VITALS: BP 109/69
[2019-07-18] MEDS: PREGABALIN 25 MG CAP PO SCH (22:25)
[2019-07-18] MEDS: FAMOTIDINE (10MG/ML) 2ML VL IV SCH (22:25)
[2019-07-18] MEDS: PREGABALIN CAPSULE 75 MG CAP PO SCH (22:26)
[2019-07-18] MEDS ORDERED: OXY10CRT PO (22:37)
[2019-07-18] MEDS ORDERED: HYDROmorphone HCL 2 MG/ML VL IV PRN (23:30)
[2019-07-19 04:42] VITALS: BP 116/79
--- NOTE | 2019-07-19 07:15 | NUR ---
Opening Shift Note Report received and assumed care of patient, awake and alert. c/o pain or discomfort at this time,despite Dilaudid given this A.M. Instructed on POC and Nursing routines,call light within reach patient reminded instructed to call for assistance,patient verbalized understanding. will continue to monitor for changes Q1hr and PRN.
[2019-07-19] MEDS: PREGABALIN CAPSULE 75 MG CAP PO SCH ×2 (10:26→21:44)
[2019-07-19] MEDS: FAMOTIDINE (10MG/ML) 2ML VL IV SCH (10:27)
[2019-07-19] MEDS: POLYETHYLENE GLYCOL 17 GM PWDR PO SCH (10:27)
[2019-07-19] MEDS: PREGABALIN 25 MG CAP PO SCH ×2 (10:39→21:44)
--- NOTE | 2019-07-19 11:10 | NUR ---
MD VISIT DR. SON HERE TO SEE AND EXAMINED PATIENT,RECEIVED VERBAL ORDER TO INCREASE DILAUDID TO 1 NG AND CONTINUE HIS HOME MEDICATION DOSE FOR NEURONTIN AND BACLOFEN,SEE ORDER WRITTEN.
--- NOTE | 2019-07-19 11:20 | NUR ---
WOUND CARE NOTE: WOUND CONSULT ORDERED FOR SKIN INTEGRITY MONITORING. PATIENT ADMITTED TO [facility] WITH DIAGNOSIS OF ABD PAIN, UTI, PARAPLEGIA. CURRENT ERI SCORE IS 14. PATIENT IS ABLE TO SELF TURN/REPOSITION SELF USING UPPER EXTREMITIES. SPECIALTY AIR MATTRESS HAS BEEN ORDERED PER MD ORDER. PATIENT TO BE PLACED, PENDING DELIVERY BY [facility]RA[facility] TIM. PATIENT HAS MULTIPLE SCARS NOTED FROM OLD HEALED WOUNDS. WOUND PHOTOS WERE TAKEN UPON ADMIT BY BEDSIDE NURSE FOR REFERENCE. NO OPEN OR DRAINING WOUNDS OR PRESSURE AREAS NOTED. RECOMMEND: FREQUENT TURN SCHEDULE Q 2 HOURS, PRN CONDITION PERMITS, WITH PRESSURE REDISTRIBUTION USING PILLOWS/WEDGES, BID/PRN APPLICATION WITH MOISTURE BARRIER CREAM, OPTIFOAM GENTLE SACRAL DRESSING, SPECIALTY AIR MATTRESS, DIETARY CONSULT, CONTINUED MONITORING BY WOUND CARE TEAM.
--- NOTE | 2019-07-19 12:05 | NUR ---
PATIENT HAD A BOWEL MOVEMENT WITH SCANTY BLOOD NOTE FROM THE RECTUM DESPITE PASSING STOOL FROM COLOSTOMY,PAGED DR. SON.
[2019-07-19] MEDS: HYDROmorphone HCL 2 MG/ML VL IV PRN ×3 (12:16→21:43)
--- NOTE | 2019-07-19 12:30 | NUR ---
DR. SON INFORMED THAT PATIENT HAD A BOWEL MOVEMENT WITH SCANTY BLOOD FROM THE RECTUM DESPITE PASSING STOOL FROM COLOSTOMY,RECEIVED ORDER,SEE ORDER WRITTEN.
[2019-07-19 13:32] VITALS: BP 100/68
[2019-07-19] MEDS: GABAPENTIN 300 MG CAP PO SCH ×2 (15:20→21:44)
[2019-07-19] MEDS: BACLOFEN 10 MG TAB PO SCH ×2 (15:22→21:44)
--- NOTE | 2019-07-19 15:30 | NUR ---
PATIENT DEFECATED AND WAS BEING CLEAN BY WALDO WHALEN,PATIENT DEFECATED IN HIS PERSONAL PANTS AND ASKED MARLEE TO JUST THROW PANTS AWAY IN THE TRASH.I OFFERED PATIENT TO PUT SOILED PANTS IN A BELONGINGS BAG SO IT CAN BE GIVEN TO FAMILY WHEN THEY COME VISIT BUT REFUSED, HE STATED " NO ITS OK YOU CAN THROW IT AWAY,I CAN BUY A NEW ONE" EXPLAIN TO PATIENT ONCE PANTS IS THROWN AWAY AND IT IS GONE,WE CANNOT RETRIEVED IT BACK. PATIENT WAS OK WITH IT AND VERBALIZED UNDERSTANDING.
[2019-07-19 16:51] VITALS: BP 129/92
--- NOTE | 2019-07-19 17:59 | NUR ---
PATIENT DEFECATED IN HIS PERSONAL PANTS AND ASKED TOWER ERECTOR TO THROW THEM AWAY. AIDEN MAURER AT BEDSIDE SPOKE TO PATIENT AND EXPLAINED ONCE THROWN AWAY IT IS GONE. PATIENT STATED IT IS OKAY AND HE CAN BUY ANOTHER PAIR.
--- NOTE | 2019-07-19 18:30 | NUR ---
STATUS UNCHANGED NO DISTRESS NO FURTHER C/O PAIN
[2019-07-19 22:00] VITALS: BP 138/92
[2019-07-20] MEDS: TEMAZEPAM 15 MG CAP PO PRN ×2 (00:06→23:44)
--- NOTE | 2019-07-20 05:00 | NUR ---
Patient refused vital signs to be taken.
[2019-07-20] MEDS: HYDROmorphone HCL 2 MG/ML VL IV PRN ×5 (06:15→23:45)
[2019-07-20] MEDS: GABAPENTIN 300 MG CAP PO SCH ×3 (06:15→22:17)
[2019-07-20] MEDS: BACLOFEN 10 MG TAB PO SCH ×3 (06:16→22:16)
[2019-07-20 07:03] LABS: Basophils # (auto) 0 uL; Basophils % (auto) 1.1 % (0.0-2.0); Eosinophils # (auto) 0.1 uL; Hematocrit 34.9 % (41.0-53.0); Hemoglobin 11.5 g/dL (13.5-17.5); Lymphocytes % (auto) 36.3 % (10.0-50.0); Mean Corpuscular Hemoglobin 27.1 pg (28.0-32.0); Mean Corpuscular Hgb Conc. 33.1 g/dL (32.0-36.0); Mean Corpuscular Volume 82.1 fL (80.0-100.0); Monocytes # (auto) 0.2 uL; Monocytes % (auto) 9.3 % (0.0-12.0); Neutrophils # (auto) 1.4 uL; Neutrophils % (auto) 51.3 % (37.0-80.0); Platelet Count (auto) 154 10^3/uL (140-450); Red Blood Cells 4.24 10^6/uL (4.5-5.90); Red Cell Distribution Width 14.4 % (11.8-14.3); White Blood Cell 2.6 10^3/uL (4.4-10.8)
[2019-07-20 07:04] LABS: BUN/Creatinine Ratio 17.2; Calcium 8.8 mg/dL (8.5-10.1); Magnesium 2.1 mg/dL (1.6-2.6); Potassium 3.8 mmol/L (3.5-5.1)
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
[2019-07-20 09:00] VITALS: BP 98/63
[2019-07-20] MEDS: POLYETHYLENE GLYCOL 17 GM PWDR PO SCH (10:00)
[2019-07-20] MEDS ORDERED: PANTOPRAZOLE 40 MG TAB PO SCH (10:00)
--- NOTE | 2019-07-20 10:11 | NUR ---
Inclusion Special Education Teacher Annie WOLFE and Charge Demetrice RN at bedside having conversation about lost money that the patient reported yesterday. Annie informed patient that administration already knows about it.
[2019-07-20] MEDS: PREGABALIN CAPSULE 75 MG CAP PO SCH ×2 (10:25→22:16)
[2019-07-20] MEDS: PREGABALIN 25 MG CAP PO SCH ×2 (10:25→22:16)
--- NOTE | 2019-07-20 11:15 | NUR ---
Midline Update At this time pt has access to port-a-cath per primary RN Axel and does not have continuos IV infusion but only PRN meds. No need for midline placement at this time. Primary RN aware to clarify order with MD and to communicate with PICC line RN at ext. [phone].
--- NOTE | 2019-07-20 11:53 | NUR ---
Nutrition Consult Assessment Notes please see attached link for complete assessment Est. Needs IBW [id number] kcal (23-25 kcal/kgBW r/t paraplegia), 83-99 gms pro (1.0-1.2 gms/kgBW). Will continue to monitor pertinent labs and reassess nutrient need prn Addendum: 07/20/19 at [address] Amended: Links added.
[2019-07-20 13:00] VITALS: BP 113/68
[2019-07-20 17:00] VITALS: BP 99/64
[2019-07-20] MEDS: SUCRALFATE 1 GM/10 ML ORAL SUSP PO SCH ×2 (17:15→22:16)
--- NOTE | 2019-07-20 18:00 | NUR ---
Patient signed the consents for EGD for tomorrow.
[2019-07-20 18:45] LABS: INR 1.06 (0.9-1.15); Partial Thromboplastin Time 26.9 sec (23.64-32.05)
--- NOTE | 2019-07-20 19:40 | NUR ---
open note assumed care of pt. upon entering room pt awake, alert and oriented x4. pt on room air no distress noted or expressed. pt updated on plan of care, no questions at this time. pt aware of NPO status after midnight in prep for EGD in the AM. pt has urostomy to bag drainage as well as colostomy bag intact. pt bed locked, low and 2x rails up. call light in reach, encouraged to call as needed. will round q1hr and prn.
[2019-07-20 19:52] VITALS: BP 95/60
[2019-07-20 21:47] VITALS: BP 134/67
[2019-07-20] MEDS: PANTOPRAZOLE 40 MG TAB PO SCH (22:17)
[2019-07-20 23:30] VITALS: BP 116/62
[2019-07-21] VITALS (7 sets, daily range): BP systolic 71–104; BP diastolic 43–73
[2019-07-21] MEDS: BACLOFEN 10 MG TAB PO SCH ×3 (06:40→22:34)
[2019-07-21] MEDS: GABAPENTIN 300 MG CAP PO SCH ×3 (06:41→22:35)
[2019-07-21] MEDS: SUCRALFATE 1 GM/10 ML ORAL SUSP PO SCH ×4 (06:41→22:34)
--- NOTE | 2019-07-21 08:00 | NUR ---
Opening Shift Note Assumed care of patient, awake but still anxious. No S/S of distress/SOB, 6/10 abdominal pain. Instructed on POC and to call for assist PRN, will continue to monitor for changes Q1hr and PRN.
[2019-07-21] MEDS: HYDROmorphone HCL 2 MG/ML VL IV PRN ×3 (08:30→22:59)
[2019-07-21] MEDS: PANTOPRAZOLE 40 MG TAB PO SCH ×2 (10:00→22:35)
[2019-07-21] MEDS: PREGABALIN 25 MG CAP PO SCH ×2 (10:00→22:35)
[2019-07-21] MEDS: POLYETHYLENE GLYCOL 17 GM PWDR PO SCH (10:00)
[2019-07-21] MEDS: PREGABALIN CAPSULE 75 MG CAP PO SCH ×2 (10:00→22:35)
--- NOTE | 2019-07-21 11:15 | NUR ---
Patient brought to Pre-op via bed, for EGD to be performed by Dr. Howard. Gave reports to Judd WOLFE.
[2019-07-21] MEDS ORDERED: MIDAZOLAM HCL 1MG/1ML-2 ML VIAL ONE ×2 (11:19→11:21)
[2019-07-21] MEDS ORDERED: fentaNYL CITRATE 100 MCG/2 ML VL ONE (11:19)
[2019-07-21] MEDS ORDERED: PROPOFOL 10 MG/ML 20 ML IV ONE (11:20)
[2019-07-21] MEDS ORDERED: SODIUM CHLORIDE LOCK 10 ML ONE (11:20)
[2019-07-21] MEDS ORDERED: ONDANSETRON HCL 4 MG/2 ML VIAL ONE (11:20)
--- NOTE | 2019-07-21 12:25 | NUR ---
Patient back to his room S/P EGD under MAC performed by Dr. Howard. Received reports from Clarissa WOLFE PACU. Patient is still lethargic from sedation. Bed alarm on and side rails up x2. Will continue care.
[2019-07-21] MEDS: METOCLOPRAMIDE HCL 5MG/ml INJ 2ml VIAL IV SCH ×2 (12:57→17:51)
[2019-07-21] MEDS: ENOXAPARIN SOD 40 MG/0.4 ML SYRINGE SC SCH (18:55)
--- NOTE | 2019-07-21 19:07 | NUR ---
gave reports to awake overnight counselor RN.
[2019-07-22] MEDS: TEMAZEPAM 15 MG CAP PO PRN ×2 (00:33→22:27)
[2019-07-22 04:42] VITALS: BP 124/74
[2019-07-22] MEDS: GABAPENTIN 300 MG CAP PO SCH ×3 (06:12→22:23)
[2019-07-22] MEDS: SUCRALFATE 1 GM/10 ML ORAL SUSP PO SCH ×2 (06:12→10:48)
[2019-07-22] MEDS: BACLOFEN 10 MG TAB PO SCH ×3 (06:12→22:23)
[2019-07-22] MEDS: METOCLOPRAMIDE HCL 5MG/ml INJ 2ml VIAL IV SCH ×4 (06:12→18:19)
[2019-07-22] MEDS: HYDROmorphone HCL 2 MG/ML VL IV PRN ×4 (06:13→20:35)
[2019-07-22 06:34] LABS: Basophils # (auto) 0 uL; Basophils % (auto) 1.8 % (0.0-2.0); Eosinophils # (auto) 0 uL; Eosinophils % (auto) 1.5 % (0.0-7.0); Hematocrit 33.5 % (41.0-53.0); Hemoglobin 11.2 g/dL (13.5-17.5); Lymphocytes # (auto) 1.1 uL; Lymphocytes % (auto) 43.1 % (10.0-50.0); Mean Corpuscular Hemoglobin 27.2 pg (28.0-32.0); Mean Corpuscular Hgb Conc. 33.3 g/dL (32.0-36.0); Mean Corpuscular Volume 81.7 fL (80.0-100.0); Monocytes # (auto) 0.2 uL; Monocytes % (auto) 7.2 % (0.0-12.0); Neutrophils # (auto) 1.2 uL; Neutrophils % (auto) 46.4 % (37.0-80.0); Nucleated Red Blood Cells % 0.1 %; Platelet Count (auto) 158 10^3/uL (140-450); Red Blood Cells 4.11 10^6/uL (4.5-5.90); Red Cell Distribution Width 14.4 % (11.8-14.3); White Blood Cell 2.6 10^3/uL (4.4-10.8)
[2019-07-22 06:46] LABS: BUN/Creatinine Ratio 16.2; Calcium 8.5 mg/dL (8.5-10.1); Potassium 3.9 mmol/L (3.5-5.1)
[2019-07-22 09:00] VITALS: BP 122/76
[2019-07-22] MEDS: PREGABALIN 25 MG CAP PO SCH ×2 (10:49→22:23)
[2019-07-22] MEDS: POLYETHYLENE GLYCOL 17 GM PWDR PO SCH (10:49)
[2019-07-22] MEDS: PREGABALIN CAPSULE 75 MG CAP PO SCH ×2 (10:49→22:23)
[2019-07-22] MEDS: PANTOPRAZOLE 40 MG TAB PO SCH (10:49)
[2019-07-22] MEDS: ENOXAPARIN SOD 40 MG/0.4 ML SYRINGE SC SCH (10:50)
[2019-07-22 13:00] VITALS: BP_SYST 101; BP_SYST 130; BP_DIAS 63; BP_DIAS 87
--- NOTE | 2019-07-22 14:59 | NUR ---
Assessment Pt is a 49 yr old male, alert and oriented. Prior to admit, pt lives at home with his , Magre, who is his emergency contact at [phone]. Pt's helps to cook, clean, and assists with ADL's such as bathing. Pt has paraplegia and unable to ambulate on his own. Pt states that he has a w/c at home and all the DME that he needs. Pt has previously received HH services from [facility] for antibiotics and mentioned that if he needs any services again from them that he would like to go back to him. Pt feels safe being d/c back home upon medical clearance. Pt is complaining of extreme abdominal pain and wonders if he has a UTI. SW connected with pt's nurse to discuss medical concerns. Pt's Primary is Dr. Amelie George. Pt has not interest in advanced directive at this time. Pt is in need of transportation services through [facility] upon d/c. [employer] notified and is setting up transportation for 07/23 at 5:00 pm. Addendum: 07/22/19 at 1509 by MARCELINO WAGNER SS Amended: Links added.
[2019-07-22 17:00] VITALS: BP 112/75
--- NOTE | 2019-07-22 17:14 | NUR ---
Discharge planning, patient will need assistance with transportation home. Transportation was arranged with [facility] for 07.23.19 at 6pm per Sarah at [facility] who called back to confirm transportation request. Addendum: 07/22/19 at 1716 by PIERO MERCADO SS Amended: Links added.
[2019-07-22] MEDS: DOXYCYCLINE 100MG/250ML 250 ML IV SCH (18:20)
--- NOTE | 2019-07-22 18:30 | NUR ---
Patient has no discharge order yet.
[2019-07-22 19:01] LABS: Urine Bacteria FEW /hpf (None Seen); Urine Blood Negative /uL (Negative); Urine Budding Yeast OCCASIONAL /hpf (None Seen); Urine Specific Gravity 1.006 (1.001-1.035); Urine WBC 3 /hpf (0 - 3)
--- NOTE | 2019-07-22 19:39 | NUR ---
OPENING NOTES RECEIVED REPORT FROM DAY SHIFT NURSE. PT IS ALERT AND ORIENTATED X 4 WITH NO S/S OF DISTRESS NOR SOB. PT REPORT PAIN 7/10 IN THE ABDOMEN. PT'S LEFT LOWER ABDOMEN OSTOMY IS INTACT AND CURRENTLY EMPTY. PT'S NEPHROSTOMY IS IN PLACE AND DRAINING. BED BRAKES ARE LOCKED AND CALL LIGHT IS WITH IN REACH. BED IS IN LOWEST POSITION AND SIDE RAILS ARE UP X 2. HOB IS 30 DEGREES. DISCUSSED POC WITH PATIENT AND PT VERBALIZED UNDERSTANDING. WILL MONITOR Q 1 HR.
[2019-07-22 21:00] VITALS: BP 97/61
[2019-07-23] MEDS: METOCLOPRAMIDE HCL 5MG/ml INJ 2ml VIAL IV SCH ×4 (00:05→18:48)
[2019-07-23] MEDS: HYDROmorphone HCL 2 MG/ML VL IV PRN ×4 (04:28→18:48)
[2019-07-23 04:51] VITALS: BP 83/64
[2019-07-23] MEDS: BACLOFEN 10 MG TAB PO SCH ×3 (05:38→22:06)
[2019-07-23] MEDS: DOXYCYCLINE 100MG/250ML 250 ML IV SCH ×2 (05:38→17:48)
[2019-07-23] MEDS: GABAPENTIN 300 MG CAP PO SCH ×3 (05:38→22:05)
--- NOTE | 2019-07-23 07:27 | NUR ---
CLOSING NOTES ENDORSED CARE TO DAY SHIFT NURSE
--- NOTE | 2019-07-23 07:40 | NUR ---
Opening Shift Note: Assumed care of patient, asleep in bed, with blanket over head. No S/S of distress/SOB or pain. Bed in lowest locked position, side rails up x 2, call light within reach. Patient will be instructed on POC, will continue to monitor for changes Q1hr and PRN.
[2019-07-23 09:00] VITALS: BP 80/56
[2019-07-23] MEDS: POLYETHYLENE GLYCOL 17 GM PWDR PO SCH (10:00)
[2019-07-23] MEDS: PREGABALIN CAPSULE 75 MG CAP PO SCH ×2 (10:13→22:06)
[2019-07-23] MEDS: ENOXAPARIN SOD 40 MG/0.4 ML SYRINGE SC SCH (10:13)
[2019-07-23] MEDS: PREGABALIN 25 MG CAP PO SCH ×2 (10:13→22:06)
[2019-07-23 13:07] VITALS: BP 90/63
[2019-07-23 16:29] VITALS: BP 103/67
--- NOTE | 2019-07-23 17:15 | NUR ---
Patient states he can not be sent home due to his caregiver frame maker () being out of town. Per Doctor Mani, patient is stable for discharge.
[2019-07-23 17:31] VITALS: BP 96/65
--- NOTE | 2019-07-23 19:30 | NUR ---
Opening Shift Note Assumed care of patient, awake and alert, and complaintive re. order for discharge and pain pt states is surrounding both ostomy bags and fact that has no urostomy tube at this time and states he will get infected. No S/S of resp distress/SOB. This RN and day RN in room together. This RN reminding pt that he had removed urostomy tubing and bag and needs to keep both bags undisturbed for rn shift mgr as there is no other plan for urostomy until new bags can be obtained. Told pt that best plan is to have a urostomy tube, but seconday plan currently in place is to protect skin with colostomy bag to collect urine. Instructed on POC and to call for assist PRN, will continue to monitor for changes Q1hr and PRN. Pt reminded that no pain med available now as not long enough time since last med given. Pt briefly conceding.
[2019-07-23 22:11] VITALS: BP 103/64
[2019-07-24] MEDS: METOCLOPRAMIDE HCL 5MG/ml INJ 2ml VIAL IV SCH ×5 (00:23→23:05)
[2019-07-24] MEDS: HYDROmorphone HCL 2 MG/ML VL IV PRN ×4 (00:24→18:16)
[2019-07-24] MEDS: TEMAZEPAM 15 MG CAP PO PRN ×3 (00:25→23:06)
--- NOTE | 2019-07-24 05:52 | NUR ---
PATIENT REFUSED TO TAKE VITAL SIGNS AT 0600 HRS.
[2019-07-24] MEDS: DOXYCYCLINE 100MG/250ML 250 ML IV SCH (06:00)
[2019-07-24] MEDS: GABAPENTIN 300 MG CAP PO SCH ×3 (06:01→20:31)
[2019-07-24] MEDS: BACLOFEN 10 MG TAB PO SCH ×3 (06:01→20:32)
--- NOTE | 2019-07-24 07:00 | NUR ---
Report given to AIDEN Frank for day shift. Colostomy bag changed as loosened at medial inferior edge. Pt alton well.
--- NOTE | 2019-07-24 07:35 | NUR ---
Opening Shift Note: Assumed care of patient, patient asleep with blanket over head. No S/S of distress/SOB or pain. Bed in lowest locked position, side rails up x 2, call light within reach. Patient will be instructed on POC, will continue to monitor for changes Q1hr and PRN.
[2019-07-24 09:00] VITALS: BP 82/51
--- NOTE | 2019-07-24 09:06 | NUR ---
PATIENT ATTENDANT PAGED. PENDING CONSULT. PATIENT STATES HE CANNOT BE DISCHARGES BECAUSE HIS CAREGIVER () IS NOT HOME AT THIS TIME.
--- NOTE | 2019-07-24 10:06 | NUR ---
Attempted to turn patient, Patient refused to be turned.
[2019-07-24] MEDS: POLYETHYLENE GLYCOL 17 GM PWDR PO SCH (10:15)
[2019-07-24] MEDS: PREGABALIN 25 MG CAP PO SCH ×2 (10:15→20:32)
[2019-07-24] MEDS: PREGABALIN CAPSULE 75 MG CAP PO SCH ×2 (10:15→20:32)
[2019-07-24] MEDS: ENOXAPARIN SOD 40 MG/0.4 ML SYRINGE SC SCH (10:15)
--- NOTE | 2019-07-24 10:15 | NUR ---
Patient notified of discharge again. House sup in to speak with the patient. Patient verbally agreed. Will continue to monitor.
--- NOTE | 2019-07-24 10:32 | NUR ---
Patient states he is unable to contact his .
--- NOTE | 2019-07-24 10:52 | NUR ---
, Lorin, called. No answer, mail box is full. Will attempt to call again.
--- NOTE | 2019-07-24 11:45 | NUR ---
Attempted to turn patient. Patient refused to turn.
--- NOTE | 2019-07-24 12:03 | NUR ---
Attempted to call again. No answer, and voice mail is full. Patient is requesting to speak with charge nurse.
--- NOTE | 2019-07-24 12:30 | NUR ---
Charge Nurse Armida at bedside. Discussed plan with patient, patient is still resistant. CN paged Dr. Singleton
--- NOTE | 2019-07-24 12:42 | NUR ---
returned call. States she is out of town and is unable to be home with the patient when he is discharged. notified of discharge order. states she will call back soon with an update.
--- NOTE | 2019-07-24 12:55 | NUR ---
Dr. Singleton returned page. Orders to [facility] [place].
[2019-07-24 13:00] VITALS: BP 118/77
--- NOTE | 2019-07-24 13:39 | NUR ---
Dr. Singleton at bedside. Discussed plan of care with patient. Per Dr. Singleton: keep patient until urine cultures are resulted.
[2019-07-24 17:00] VITALS: BP 103/63
[2019-07-24] MEDS: ERTAPENEM SOD INJ 1 GM in SODIUM CHL 0.9% 50 ML IV SCH (17:12)
[2019-07-24] MEDS: FLUCONAZOLE 200MG/100ML 100 ML IV SCH (18:15)
--- NOTE | 2019-07-24 19:30 | NUR ---
Opening Shift Assumed care of patient, awake and alert. No S/S of distress/SOB or pain. Insructed on POC and to callfor assist PRN, will continue to monitor for changes Q1hr and PRN. Fall and safety precautions in place. Call light within reach.
--- NOTE | 2019-07-24 20:00 | NUR ---
PAIN Patient complaining of pain to abdomen 06/04. Informed patient that pain medication not yet due (see emar). Offered patient hot packs and educated on how pain could be related to inflammation. Patient verbalized understanding of teaching, accepted hot packs. Will continue to monitor
[2019-07-24 22:00] VITALS: BP 146/73
--- NOTE | 2019-07-24 23:10 | NUR ---
PAIN Patient complaining of abdominal pain 06/04, but is requesting sleeping medication. Educated patient that sleeping medication and pain medication cannot be given at the same time due to risks of respiratory depression. Patient verbalized understanding of teaching, requesting sleeping medication at this time (see emar) and ice packs. Ice packs x2 given to patient, informed him that in approximately 1 hour, if still awake and in pain, pain medication can be safely administered. Patient verbalized understanding of teaching. Will continue to monitor
[2019-07-25] MEDS: HYDROmorphone HCL 2 MG/ML VL IV PRN ×4 (04:45→19:55)
[2019-07-25] MEDS: METOCLOPRAMIDE HCL 5MG/ml INJ 2ml VIAL IV SCH ×4 (05:18→23:17)
[2019-07-25] MEDS: GABAPENTIN 300 MG CAP PO SCH ×3 (05:18→21:31)
[2019-07-25] MEDS: BACLOFEN 10 MG TAB PO SCH ×3 (05:19→21:32)
[2019-07-25 05:29] VITALS: BP 116/80
[2019-07-25 06:03] LABS: Basophils # (auto) 0 uL; Basophils % (auto) 0.8 % (0.0-2.0); Eosinophils # (auto) 0 uL; Eosinophils % (auto) 1.9 % (0.0-7.0); Hematocrit 36.5 % (41.0-53.0); Lymphocytes # (auto) 0.8 uL; Lymphocytes % (auto) 39.8 % (10.0-50.0); Mean Corpuscular Hemoglobin 27.3 pg (28.0-32.0); Mean Corpuscular Hgb Conc. 32.8 g/dL (32.0-36.0); Monocytes # (auto) 0.2 uL; Monocytes % (auto) 10.3 % (0.0-12.0); Neutrophils % (auto) 47.2 % (37.0-80.0); Nucleated Red Blood Cells % 0.1 %; Platelet Count (auto) 164 10^3/uL (140-450); Red Blood Cells 4.39 10^6/uL (4.5-5.90); Red Cell Distribution Width 14.8 % (11.8-14.3); White Blood Cell 2.1 10^3/uL (4.4-10.8)
[2019-07-25 06:23] LABS: Potassium 3.9 mmol/L (3.5-5.1)
[2019-07-25 06:29] LABS: Calcium 8.9 mg/dL (8.5-10.1); Magnesium 1.9 mg/dL (1.6-2.6)
--- NOTE | 2019-07-25 07:33 | NUR ---
Opening Shift Note: Assumed care of patient, awake and alert. No S/S of distress/SOB. Patient states a pain level of 7/10. Patient educated on pain medication. Bed in lowest locked position, side rails up x 2, call light within reach. Fall and safety precaution in place. Patient instructed on POC and to call for assist PRN, will continue to monitor for changes Q1hr and PRN.
[2019-07-25 09:00] VITALS: BP 103/68
--- NOTE | 2019-07-25 09:08 | NUR ---
Microbiology contact. Urine culture still pending.
[2019-07-25] MEDS: POLYETHYLENE GLYCOL 17 GM PWDR PO SCH (09:33)
[2019-07-25] MEDS: ENOXAPARIN SOD 40 MG/0.4 ML SYRINGE SC SCH (09:33)
[2019-07-25] MEDS: PREGABALIN 25 MG CAP PO SCH ×2 (09:33→21:30)
[2019-07-25] MEDS: PREGABALIN CAPSULE 75 MG CAP PO SCH ×2 (09:33→21:31)
[2019-07-25] MEDS: FLUCONAZOLE 200MG/100ML 100 ML IV SCH (09:34)
--- NOTE | 2019-07-25 10:45 | NUR ---
Patient is refusing to be turned at this time.
--- NOTE | 2019-07-25 11:59 | NUR ---
Education: Patient asked for pain medications. Patient educted on the frequency of medications, and potential side effects.
[2019-07-25] MEDS: ERTAPENEM SOD INJ 1 GM in SODIUM CHL 0.9% 50 ML IV SCH (12:12)
--- NOTE | 2019-07-25 12:46 | NUR ---
Patient is refusing to turn at this time.
[2019-07-25 13:00] VITALS: BP 113/73
--- NOTE | 2019-07-25 14:15 | NUR ---
Patient currently stating pain 9/10. Patient offered hot and cold packs to alternate. Will continue to monitor
--- NOTE | 2019-07-25 15:07 | NUR ---
Urine cultures are resulted. Dr. Singleton notified.
--- NOTE | 2019-07-25 16:34 | NUR ---
re-assessment Per ss consult needs help at home, caregiver is out of town. Per patient his is his caregiver and she is home now. Patient does not need additional help at home. Patient will return home once final culture is in. Patient may need home IV ABX. Patient is on service with [facility]. Addendum: 07/25/19 at 1636 by Meme Napoles Amended: Links added.
--- NOTE | 2019-07-25 16:45 | NUR ---
Dr. Singleton called. Orders placed.
[2019-07-25 17:00] VITALS: BP 161/78
[2019-07-25] MEDS: LINEZOLID 600MG/300ML 300 ML IV SCH (18:10)
--- NOTE | 2019-07-25 18:14 | NUR ---
Patient educated on new medications. Patient educated on current plan.
[2019-07-25 20:55] VITALS: BP 103/64
--- NOTE | 2019-07-25 20:55 | NUR ---
BP RECHECK Rechecked BP approximately 1 hour after pain medication administration; 103/64 on left arm, HR 51. Patient denies symptoms, no distress noted. Patient stated "it does that sometimes." Will continue to monitor
[2019-07-25 21:48] VITALS: BP 89/55
[2019-07-25] MEDS: TEMAZEPAM 15 MG CAP PO PRN (23:08)
[2019-07-26 04:42] VITALS: BP 102/72
[2019-07-26] MEDS: LINEZOLID 600MG/300ML 300 ML IV SCH ×2 (05:13→17:00)
[2019-07-26] MEDS: METOCLOPRAMIDE HCL 5MG/ml INJ 2ml VIAL IV SCH ×3 (05:13→17:33)
[2019-07-26] MEDS: GABAPENTIN 300 MG CAP PO SCH ×2 (05:13→14:21)
[2019-07-26] MEDS: BACLOFEN 10 MG TAB PO SCH ×2 (05:14→14:22)
[2019-07-26] MEDS: HYDROmorphone HCL 2 MG/ML VL IV PRN ×3 (05:15→14:22)
--- NOTE | 2019-07-26 05:15 | NUR ---
COLOSTOMY Patient requesting to have his colostomy emptied, stating "I can't do it when I'm in this much pain." Patient was medicated with PRN pain medication (see emar) and encouraged to empty his colostomy himself. Patient able to empty his colostomy independently and cleaned with minimal assist. Patient tolerated well. Will continue to monitor
--- NOTE | 2019-07-26 07:15 | NUR ---
Opening Shift Note Assumed care of patient, awake and alert. No S/S of distress noted. Call light in reach, bed rails upX2. Instructed on POC and to call for assist PRN, will continue to monitor for changes Q1hr and PRN.
[2019-07-26 08:00] VITALS: BP 102/72
[2019-07-26 09:00] VITALS: BP 89/57
[2019-07-26] MEDS: FLUCONAZOLE 200MG/100ML 100 ML IV SCH (09:35)
[2019-07-26] MEDS: POLYETHYLENE GLYCOL 17 GM PWDR PO SCH (09:35)
[2019-07-26] MEDS: ENOXAPARIN SOD 40 MG/0.4 ML SYRINGE SC SCH (09:35)
[2019-07-26] MEDS: PREGABALIN CAPSULE 75 MG CAP PO SCH (09:36)
[2019-07-26] MEDS: PREGABALIN 25 MG CAP PO SCH (09:39)
--- NOTE | 2019-07-26 10:48 | NUR ---
HOME ABXs resumption of care with [facility]. [facility], [facility], [facility], all faxed order and d/c summary. Await response from [facility].
[2019-07-26] MEDS: ERTAPENEM SOD INJ 1 GM in SODIUM CHL 0.9% 50 ML IV SCH (12:01)
--- NOTE | 2019-07-26 12:53 | NUR ---
Kacey from [facility] called and stated they are working on abx order
--- NOTE | 2019-07-26 12:54 | NUR ---
Nithya from [facility] called and stated auth for [facility] is [id number]
[2019-07-26 13:18] VITALS: BP 96/65
--- NOTE | 2019-07-26 14:56 | NUR ---
Patient's Agreed To Administer Home Antibiotics Called and spoke with patient's Lorin whom agreed to administering second daily dose of IV antibiotics. Judit made aware.
--- NOTE | 2019-07-26 16:22 | NUR ---
Discharge planning per consult, patient has orders for IV ABX therapy at home. Order was set up by CRIS Khan...patient will have services with [facility], and IV ABX services with [facility]. Spoke to wilton from [facility] and was advised that they will deliver the meds to the patient's home between 7-10pm. transportation request was sent to [facility] transportation. Placed a follow up call and spoke with Becca and was advised that [employer] [phone] would be here to pick the patient up at 5:30pm. Nurse Janeth and patient was advised of the dc plan. Addendum: 07/26/19 at 1632 by PIERO MERCADO Amended: Links added.
--- NOTE | 2019-07-26 18:45 | NUR ---
Transport Changed to 1910 Called [employer] who stated the time has been changed to 191.
--- NOTE | 2019-07-26 19:16 | NUR ---
Closing Note-Patient Ready For Discharge Patient given discharge papers, all questions and concerns addressed. Educated patient on new prescriptions and discharge diagnosis. Patient is set up for home health and IV antibiotics. Patient and aware that antibiotics are to be delivered to their house between 7-10pm. Patient's port-a-cath access removed per protocol. Patient given change of clothes. Bed in lowest locked position, side rails up x2 and call light within reach. Awaiting transport. Care endorsed to [facility] nurse Norton.
--- NOTE | 2019-07-26 20:11 | NUR ---
DISCHARGE Discharge instructions given as ordered. Encourage to follow up with PMD as instructed. All questions and concerns addressed. Patient verbalized understanding. Medication reconciliation form completed and copy given to patient. Home medications held in Pharmacy returned to patient, and needed vaccines given. Portacath access removed with catheter intact by day shift RN. Lucero bag still attached to urostomy per patient request. Patient taken to vehicle via gurney with all personal belongings, accompanied by transport team. No distress noted at time of departure.
== END 2019-07-26 20:11 | disposition home health service (06) | DRG 463 ==
LOC: EDBD 10:56 → ER 11:07 → OVERFLOW 11:08 → WEST WING 15:20
PROVIDERS: ADMIT Nurse Practitioner Acute Care; ATTEND Internal Medicine
PROC: 0DB68ZX Excision of Stomach, Via Natural or Artificial Opening Endoscopic, Diagnostic (ICD-10-PCS; principal; 2019-07-21 11:13)
DX: N13.6 Pyonephrosis (principal); G82.20 Paraplegia, unspecified; R56.9 Unspecified convulsions; E44.1 Mild protein-calorie malnutrition; F11.20 Opioid dependence, uncomplicated; N39.0 Urinary tract infection, site not specified; D50.9 Iron deficiency anemia, unspecified; G89.4 Chronic pain syndrome; J44.9 Chronic obstructive pulmonary disease, unspecified; I10 Essential (primary) hypertension; K21.9 Gastro-esophageal reflux disease without esophagitis; F41.9 Anxiety disorder, unspecified; M24.459 Recurrent dislocation, unspecified hip; R63.0 Anorexia; D72.819 Decreased white blood cell count, unspecified; Z79.899 Other long term (current) drug therapy; Z82.0 Family history of epilepsy and other diseases of the nervous system; Z82.49 Family history of ischemic heart disease and other diseases of the circulatory system; Z87.442 Personal history of urinary calculi; Z93.6 Other artificial openings of urinary tract status; Z93.3 Colostomy status; Z87.440 Personal history of urinary (tract) infections; Z93.2 Ileostomy status; Z93.59 Other cystostomy status; Z88.1 Allergy status to other antibiotic agents; Z68.1 Body mass index [BMI] 19.9 or less, adult
CPT/HCPCS: 36415; 43239; 74176; 80048; 80053; 81001; 83605; 83735; 85025; 85610; 85730; 87040; 87081; 87086; 87088; 87186; 96361; 96374; 96375; G0378; J1335; J1450; J1642; J2250; J2405; J2704; J3490

== ENCOUNTER 2020-02-23 01:39 | Inpatient (IN) | payer MEDICAID ==
[2020-02-23] VITALS (11 sets, daily range): BP systolic 87–133; BP diastolic 62–77
[~2020-02-23] VITALS: Ht 172.7 cm; Wt 61.1 kg
[~2020-02-23 01:39] MED LIST changes: -FLUC200T35 PO; +MORP1TAB14 PO; -MORP60TA25 PO; -PERCOT PO
[2020-02-23] MEDS ORDERED: SODIUM CHLORIDE 0.9% 500 ML IV ONE (02:04)
[2020-02-23] MEDS ORDERED: ETOMIDATE (2MG/ML) 20ML VIAL IV ONE (02:15)
[2020-02-23] MEDS ORDERED: SUCCINYLCHOLINE CHLORIDE 20 MG/ML 10ML VIAL IV ONE (02:15)
[2020-02-23 03:31] LABS: Basophils # (auto) 0 10 ^3/uL (0-0.2); Basophils % (auto) 0.2 % (0.0-2.0); Eosinophils # (auto) 0 10 ^3/uL (0-0.8); Hematocrit 43.4 % (41.0-53.0); Hemoglobin 13.6 g/dL (13.5-17.5); Lymphocytes # (auto) 0.9 10 ^3/uL (0.4-5.4); Lymphocytes % (auto) 6.8 % (10.0-50.0); Mean Corpuscular Hemoglobin 25.7 pg (28.0-32.0); Mean Corpuscular Hgb Conc. 31.3 g/dL (32.0-36.0); Mean Corpuscular Volume 82.3 fL (80.0-100.0); Monocytes # (auto) 0.9 10 ^3/uL (0-1.3); Monocytes % (auto) 7.1 % (0.0-12.0); Neutrophils # (auto) 11.1 10 ^3/uL (1.6-8.6); Neutrophils % (auto) 85.9 % (37.0-80.0); Nucleated Red Blood Cells % 0.1 %; Platelet Count (auto) 143 10^3/uL (140-450); Red Blood Cells 5.27 10^6/uL (4.5-5.90); White Blood Cell 12.9 10^3/uL (4.4-10.8)
[2020-02-23 03:46] LABS: INR 1.39 (0.9-1.15); Partial Thromboplastin Time 33.3 sec (23.64-32.05)
[2020-02-23 03:47] LABS: Albumin 2.9 g/dL (3.4-5.0); Anion Gap 7 (5-15); Blood Urea Nitrogen 16 mg/dL (7-18); Calcium 8.6 mg/dL (8.5-10.1); Carbon Dioxide 25 mmol/L (21-32); Chloride 109 mmol/L (98-107); Glucose 131 mg/dL (74-106); Potassium 3.7 mmol/L (3.5-5.1); Sodium 141 mmol/L (136-145)
[2020-02-23 03:53] LABS: Alanine Aminotransferase 15 U/L (16-61); Alkaline Phosphatase 85 U/L (45-117); Aspartate Aminotransferase 19 U/L (15-37); BUN/Creatinine Ratio 12.8; Bilirubin, Total 0.5 mg/dL (0.2-1.0); GFR African American 79 mL/min; GFR Non-African American 65 mL/min; Total Protein 7.8 g/dL (6.4-8.2)
[2020-02-23 04:13] LABS: Urine Bacteria NONE SEEN /hpf (None Seen); Urine Blood TRACE /uL (Negative); Urine Specific Gravity 1.012 (1.001-1.035); Urine WBC 26 /hpf (0 - 3)
[2020-02-23] MEDS ORDERED: SODIUM CHLORIDE 0.9% 1,000 ML IV SCH (05:38)
[2020-02-23] MEDS ORDERED: ACETAMINOPHEN 325 MG TAB PO PRN (05:45)
[2020-02-23] MEDS ORDERED: MORPHINE SULF INJ 2 MG/ML SYRINGE 1ML IV PRN (05:45)
[2020-02-23] MEDS ORDERED: NITROGLYCERIN 0.4 MG SL TAB SL PRN (05:45)
[2020-02-23] MEDS ORDERED: ONDANSETRON HCL 4 MG/2 ML VIAL IV PRN (05:45)
[2020-02-23] MEDS ORDERED: HYDROcodone-ACET 5/325MG TAB PO PRN (05:45)
[2020-02-23] MEDS: GABAPENTIN 300 MG CAP PO SCH ×3 (06:00→21:22)
[2020-02-23] MEDS: OXYBUTYNIN CHL 5 MG TAB PO SCH ×3 (06:00→21:25)
[2020-02-23 06:20] LABS: Magnesium 2.2 mg/dL (1.6-2.6)
[2020-02-23 06:29] LABS: Lactate Dehydrogenase 231 U/L (87-241)
[2020-02-23 06:38] LABS: CRP High Sensitivity > 19 mg/dL (< 0.3)
--- NOTE | 2020-02-23 07:15 | NUR ---
RECEIVED PATIENT FROM THE ER AND ASSISTED PATIENT VIA GURNEY INTO THE ROOM AND CONNECTED PATIENT TO OXYGEN 10L SIMPLE MASK, SATURATING 92%. ENDORSE CARE TO ADA HAGER RN
--- NOTE | 2020-02-23 07:30 | NUR ---
OPENING SHIFT NOTE: RECEIVED PATIENT ON UNIT. ORIENTED TO AIDEN HAGER AND HOSPITAL UNIT. PATIENT ON 12L SIMPLE MASK WITH SATURATIONS 90%. PATIENT HAS LEFT SIDE COLOSTOMY AND RUQ ILEOCONDUIT WITH CHU CATHETER BAG ATTACHED. PATIENT HOB ELEVATED. UPDATED ON POC. BED IN LOWEST LOCKED POSITION WITH CALL LIGHT WITHIN REACH.
--- NOTE | 2020-02-23 07:45 | NUR ---
PATIENT PLACED ON NON-REBREATHER 15L BY RESPIRATORY THERAPIST. OXYGEN SATURATIONS AT 95-96%.
--- NOTE | 2020-02-23 08:00 | NUR ---
REPORT GIVEN TO AIDEN DEAN.
--- NOTE | 2020-02-23 08:35 | NUR ---
Received pt's resting in bed, call light within reach, colostomy bag to LLQ, Rt quadrant iliostomy bag on draining to gravity, pt on non rebreather mask at 15 liter of O2, will continue to monitor pt.
[2020-02-23] MEDS: DOXYCYCLINE 100MG/250ML 250 ML IV SCH ×2 (09:04→21:19)
[2020-02-23] MEDS: FAMOTIDINE 20 MG TAB PO SCH ×2 (09:05→21:20)
[2020-02-23] MEDS: ZINC SULFATE 220mg CAP or TAB PO SCH (09:05)
[2020-02-23] MEDS: ASCORBIC ACID 1,000 MG TAB PO SCH (09:06)
[2020-02-23] MEDS: CHOLECALCIFEROL (VITD3) 1,000IU=25mCg TAB PO SCH (09:07)
[2020-02-23] MEDS: ENOXAPARIN SOD 40 MG/0.4 ML SYRINGE SC SCH (09:07)
[2020-02-23] MEDS: ALBUTEROL SULF HFA 90MCG INH 200DOSE IN SCH ×3 (09:30→22:47)
--- NOTE | 2020-02-23 10:15 | NUR ---
Report given to Frank/RN, pt transfer to room 264.
--- NOTE | 2020-02-23 10:25 | NUR ---
Transfer to [facility] HELGA DAVIDSON transferred to [facility] via hospital bed on awake overnight monitor ([facility]), and portable 02. Patient connected to unit monitoring and oxygen, and weighed by bedscale. Patient oriented to BISI CHAUDHARI RN primary RN, unit, room, bed, and unit policies regarding patient care and visiting hours. All questions and concerns addressed, patient verbalized understanding. Vital sign: BT 99.1 A, HR 56/min with sinus bradycardia, BP 107/67 mmHg, RT at the bedside for HFNC, setting O2 100% flow 40 LPM, O2 saturation 97%, will continue to monitor, informed patient about waiting for the result of Covid and Isolation needed. Milk provided per patient requested.
--- NOTE | 2020-02-23 12:49 | NUR ---
Received a call from his , transfer her phone in the room, patient stated that he needs to give her some money, patient has vasquez and his medication in his bag, refused to keep in the safety box and send medication to pharmacy at this time. Cleaning his colostomy bag, empty bag as well. Lunch tray provided.
--- NOTE | 2020-02-23 14:40 | NUR ---
Called and talked to Dr. Mani MD will come and see patient soon.
--- NOTE | 2020-02-23 15:15 | NUR ---
Patient able to take a nap.
--- NOTE | 2020-02-23 15:56 | NUR ---
Left message to Dr. Singleton regarding patient requesting his home medications especially pain medications. Waiting MD to call back.
--- NOTE | 2020-02-23 15:58 | NUR ---
Patient refused ABG.
--- NOTE | 2020-02-23 15:58 | NUR ---
Respiratory note: PT WAS PLACED ON HFNC. TRIED TO OBTAIN ABG SAMPLE BUT PT REFUSED. EXPLAINED BENEFITS AND TEST REASON. RN AWARE.
[2020-02-23] MEDS ORDERED: BACLOFEN 10 MG TAB PO ONE (16:45)
--- NOTE | 2020-02-23 16:45 | NUR ---
Dr. Singleton at the bedside, seen and examined patient at this time, plan of care discussed with patient, informed MD with home medication for pain management. Received new orders, patient made aware. Paged Dr. Nicholson for new consult.
--- NOTE | 2020-02-23 17:00 | NUR ---
Wound care nurse seen patient at this time, will order for special matrass.
--- NOTE | 2020-02-23 17:22 | NUR ---
Patient stated that Regular diet is really hard to digest, requested to have some soup instead, changed the order to full liquid diet and will see. IS at the bedside, informed patient and patient stated that he did that before.
--- NOTE | 2020-02-23 17:23 | NUR ---
Changed the colostomy bag and base as well, Stool with soft and brown color.
--- NOTE | 2020-02-23 17:59 | NUR ---
IS 500ml.
[2020-02-23] MEDS ORDERED: oxyCODONE ER 10 MG TAB PO SCH (18:00)
--- NOTE | 2020-02-23 18:00 | NUR ---
WOUND CARE NOTE: IN TO SEE PATIENT AT THIS TIME PER WOUND CARE CONSULT REQUEST FOR LOW ERI. PATIENT WAS RECENTLY ADMITTED TO [facility] WITH DIAGNOSIS OF ACUTE RESPIRATORY DISTRESS. CURRENT ERI SCORE IS 11. ORDERED SPECIALTY AIR MATTRESS WITH [facility]. PATIENT TO BE PLACED, PENDING DELIVERY BY [facility]. PATIENT IS PARAPLEGIC. HE IS NOTED TO HAVE FOOT DROP. BILATERAL FEET HAVE MULTIPLE INTACT SCARS, SCABS NOTED. WOUND PHOTOS TAKEN FOR REFERENCE. SKIN/WOUND CARE PLAN IMPLEMENTED. RECOMMEND: FREQUENT TURN SCHEDULE Q 2 HOURS, PRN CONDITION PERMITS, WITH PRESSURE REDISTRIBUTION USING PILLOWS/WEDGES, BID/PRN APPLICATION MOISTURE BARRIER CREAM, OPTIFOAM GENTLE SACRAL DRESSING, DIETARY CONSULT, SPECIALTY AIR MATTRESS, ELEVATION OF BILATERAL HEELS UP OFF BED WITH PILLOWS, CONTINUED MONITORING BY WOUND CARE TEAM. Addendum: 02/23/20 at 1839 by Shaina Holcomb RN Amended: Links added.
[2020-02-23] MEDS: MIDODRINE HCL 10 MG TAB PO SCH (18:12)
--- NOTE | 2020-02-23 18:20 | NUR ---
Patient l;chaparrita on the bed with elevated HOB, patient stated that Full liquid diet was okay at this time, requested Ensure for high Protein. Informed that he has personal fitness trainer consult as well, patient made aware.
--- NOTE | 2020-02-23 18:53 | NUR ---
Mid line nurse at the bedside.
--- NOTE | 2020-02-23 19:30 | NUR ---
received report from day rn poc reviewed
--- NOTE | 2020-02-23 19:30 | NUR ---
Midline Placement: Patient educated on need for midline placement. All risks and benefits explained and all questions and concerns addresses prior to procedure. 18g/10cm midline inserted via LEFT BASILIC vein using Ultrasound. Sterile technique utilized. Blood return obtained from SINGLE lumen and flushed easily with NS using proper technique. Midline secured with saline lock; biodisc and occlusive dressing applied. Primary RN notified. Midline lot # [id number].
--- NOTE | 2020-02-23 19:53 | NUR ---
RT NOTE ROUTINE HFNC CHECK. PT APPEARS TO TOLERATE WELL. NO CHANGES MADE. CONT ORDERED Addendum: 02/23/20 at 2004 by Clemencia Ulloa RT Amended: Links added.
--- NOTE | 2020-02-23 20:33 | NUR ---
pt angry c/0 need for more pain meds, discussed poc with pt and scheldued pain meds
[2020-02-23] MEDS: BACLOFEN 10 MG TAB PO SCH (21:21)
[2020-02-23] MEDS: MORPHINE SULF 30 mg ER tab PO SCH (21:22)
--- NOTE | 2020-02-23 22:39 | NUR ---
pt resting quietly at this time with hob up call light within reach
--- NOTE | 2020-02-23 22:54 | NUR ---
RT NOTE PT TOLERATES HFNC WELL. TITRATED FIO2 TO 70%. AIDEN ARNOLD NOTIFIED. PT APPEARS TO TOLERATE WELL. PT WAS GIVEN 2 PUFFS OF HIS ALBUTEROL INHALER VIA SPACER. PT STATES HE DOESN'T THINK IT IS WORKING AND WOULD LIKE TO BE CHANGED TO HAVE HIS TX CHANGED TO HHN. BS ARE CTA. CONT ORDERED Addendum: 02/23/20 at 2255 by Clemencia Ulloa RT Amended: Links added.
[2020-02-23] MEDS: TEMAZEPAM 15 MG CAP PO PRN (23:43)
--- NOTE | 2020-02-23 23:58 | NUR ---
pt transferred onto air mattress with max assist, repositioned with hob up, pain relieved with prior med given. restoril given for c/o insomnia
[2020-02-24] VITALS (13 sets, daily range): BP systolic 76–119; BP diastolic 39–71
--- NOTE | 2020-02-24 00:16 | NUR ---
RT NOTE FIO2 TITRATED TO 50%ON HFNC. RN CLAYTON NOTIFIED. CONT ORDERED
--- NOTE | 2020-02-24 02:14 | NUR ---
RT NOTE ROUTINE HFNC CHECK. PT SLEEPING AND APPEARS COMFORTABLE AT THIS TIME. FLOW WAS TITRATED TO 30LPM AND FIO2 WAS TITRATED TO 50%. AIDEN ARNOLD NOTIFIED. CONT ORDERED Addendum: 02/24/20 at 0220 by Clemencia Ulloa RT Amended: Links added.
--- NOTE | 2020-02-24 03:38 | NUR ---
RT NOTE ROUTINE HFNC CHECK. PT SLEEPING AND APPEARS COMFORTABLE AT THIS TIME. FIO2 WAS TITRATED TO 40%. AIDEN ARNOLD NOTIFIED. CONT ORDERED Addendum: 02/24/20 at 0340 by Clemencia Ulloa RT Amended: Links added.
[2020-02-24 04:39] LABS: Basophils # (auto) 0 10 ^3/uL (0-0.2); Eosinophils # (auto) 0.1 10 ^3/uL (0-0.8); Monocytes # (auto) 0.5 10 ^3/uL (0-1.3)
[2020-02-24 04:42] LABS: Basophils % (auto) 0.5 % (0.0-2.0); Eosinophils % (auto) 0.7 % (0.0-7.0); Hematocrit 34.3 % (41.0-53.0); Hemoglobin 11.1 g/dL (13.5-17.5); Lymphocytes % (auto) 12.6 % (10.0-50.0); Mean Corpuscular Hemoglobin 26.7 pg (28.0-32.0); Mean Corpuscular Hgb Conc. 32.4 g/dL (32.0-36.0); Mean Corpuscular Volume 82.6 fL (80.0-100.0); Monocytes % (auto) 6.5 % (0.0-12.0); Neutrophils # (auto) 6.6 10 ^3/uL (1.6-8.6); Neutrophils % (auto) 79.7 % (37.0-80.0); Nucleated Red Blood Cells % 0.1 %; Platelet Count (auto) 126 10^3/uL (140-450); Red Blood Cells 4.15 10^6/uL (4.5-5.90); Red Cell Distribution Width 15.1 % (11.8-14.3); White Blood Cell 8.3 10^3/uL (4.4-10.8)
[2020-02-24 04:57] LABS: Albumin 2.4 g/dL (3.4-5.0); Magnesium 1.8 mg/dL (1.6-2.6); Potassium 4.1 mmol/L (3.5-5.1)
[2020-02-24 05:00] LABS: BUN/Creatinine Ratio 18.5; Bilirubin, Total 0.5 mg/dL (0.2-1.0); Total Protein 6.3 g/dL (6.4-8.2)
[2020-02-24] MEDS: BACLOFEN 10 MG TAB PO SCH ×4 (05:35→22:04)
[2020-02-24] MEDS: OXYBUTYNIN CHL 5 MG TAB PO SCH ×3 (05:35→22:04)
[2020-02-24] MEDS: GABAPENTIN 300 MG CAP PO SCH ×3 (05:35→21:57)
[2020-02-24] MEDS: MIDODRINE HCL 10 MG TAB PO SCH ×3 (05:37→17:58)
[2020-02-24] MEDS ORDERED: oxyCODONE ER 10 MG TAB PO SCH (06:00)
--- NOTE | 2020-02-24 06:50 | NUR ---
UNITS OUT OF [facility] PHARMACY NOTIFIED
--- NOTE | 2020-02-24 07:06 | NUR ---
REPORT GIVEN TO AM NURSE POC REVIEWED
--- NOTE | 2020-02-24 07:07 | NUR ---
Paged RT for desaturation O2 saturation 82-84%,RR30-34/min with HFNC 40% 30 LPM. HR 70-80/min, SBP 85-90 mmHg. Complaining pain at right abdominal LQ. No fever noted.
--- NOTE | 2020-02-24 07:09 | NUR ---
RT at the bedside.
--- NOTE | 2020-02-24 07:10 | NUR ---
FIO2 INCREASED TO 60% DUE TO SUSTAINED SATURATION OF 82-84%.
[2020-02-24] MEDS ORDERED: BACLOFEN 10 MG TAB PO ONE (07:30)
[2020-02-24] MEDS: Ensure HIGH Protein Chocolate 8oz Bottle PO SCH ×3 (08:00→17:58)
--- NOTE | 2020-02-24 08:49 | NUR ---
Dr. Nicholson at the bedside. Seen and examined patient at this time, plan of care discussed with patient, received new orders, patient made aware. Addendum: 02/24/20 at 0851 by BISI CHAUDHARI RN RN seen CXR this morning, informed that IV is TKO.
[2020-02-24] MEDS ORDERED: IPRATROPIUM BROM 0.5 MG/2.5ML INH SOL NEB PRN (09:00)
--- NOTE | 2020-02-24 09:25 | NUR ---
PT ON HIGH FLOW O2 AND UNABLE TO LIE FLAT WITHOUT DESATURATING. UNABLE TO TRANSFER TO CT AT THIS TIME. CECILIA RN IN AGREEMENT.
--- NOTE | 2020-02-24 09:45 | NUR ---
Breakfast tray provided.
[2020-02-24] MEDS: ENOXAPARIN SOD 40 MG/0.4 ML SYRINGE SC SCH (09:47)
[2020-02-24] MEDS: ASCORBIC ACID 1,000 MG TAB PO SCH (09:47)
[2020-02-24] MEDS: FAMOTIDINE 20 MG TAB PO SCH ×2 (09:47→21:57)
[2020-02-24] MEDS: DOXYCYCLINE 100MG/250ML 250 ML IV SCH ×2 (09:47→21:59)
[2020-02-24] MEDS: PIPERACILLIN-TAZOB 3.375GM 100 ML IV SCH ×3 (09:47→21:58)
[2020-02-24] MEDS: MORPHINE SULF 30 mg ER tab PO SCH ×2 (09:48→21:58)
[2020-02-24] MEDS: ZINC SULFATE 220mg CAP or TAB PO SCH (09:48)
[2020-02-24] MEDS: CHOLECALCIFEROL (VITD3) 1,000IU=25mCg TAB PO SCH (09:48)
--- NOTE | 2020-02-24 10:08 | NUR ---
Sent urine sample to Lab.
--- NOTE | 2020-02-24 10:40 | NUR ---
Echocardiogram at the bedside.
--- NOTE | 2020-02-24 10:53 | NUR ---
RT at the bedside, decreased HFNC FiO2 to 40% 30 LPM, O2 saturation 93-97%. Will continue to monitor and care.
--- NOTE | 2020-02-24 11:08 | NUR ---
Called Dr. Singleton per patient requested to talked to nurse outreach case manager or social sciences chair because patient wants to transfer to [place] for continue treatment with [place]. Received order for SS consult, and Dr. Banda will see patient today. Informed patient, patient made aware.
[2020-02-24] MEDS ORDERED: HYDROCORTISONE SOD SUCC 100 MG/2ML INJ VIAL IV ONE (13:30)
[2020-02-24] MEDS: IPRATROPIUM BROM 0.5 MG/2.5ML INH SOL NEB SCH ×2 (14:00→22:43)
[2020-02-24] MEDS: ALBUTEROL SULF 2.5 MG/0.5ML(0.5%) NEB SOLN NEB SCH ×2 (14:00→22:43)
--- NOTE | 2020-02-24 14:49 | NUR ---
TITRATED HIGH FLOW SETTINGS AT THIS TIME TO 30 LPM, 30% FIO2. SPO2 98%. RN AWARE OF CHANGES.
--- NOTE | 2020-02-24 14:58 | NUR ---
received a call from Dr. Banda, received new orders for CT abdominal/pelvic with iv contrast, MD made aware about patient's request for transferring to [place], patient isn't stable for transferring at this time.
--- NOTE | 2020-02-24 15:37 | NUR ---
Patient opened speaker phone, calling his pharmacy company for verified the frequency of Oxycodone, called and left the message to Dr. Banda, crow MD to call back for further order.
--- NOTE | 2020-02-24 16:21 | NUR ---
Nutrition Assessment Notes Please refer to link for full assessment notes. Est Energy needs: 1711 kcals (28 kcal/kgBW) d/t pt is paraplegic Est Protein needs: 73-98 gms/day (1.2-1.5 gm/kgBW) d/t respiratory distress Will continue to monitor and reassess prn. Addendum: 02/24/20 at [address] Amended: Links added.
[2020-02-24] MEDS: oxyCODONE HCL 5MG TAB PO SCH (17:57)
[2020-02-24] MEDS ORDERED: MILK OF MAGNESIA 30ML SUSP PO ONE (18:00)
--- NOTE | 2020-02-24 18:20 | NUR ---
Patient lying on the bed, trying do moving his legs, exercises on the bed. Pain medication given for pain management as order, on HFNC 30% 30 LPM, O2 saturation 92-96%, RR 16-20/min. No fever noted. Patient try to drink more water, no N/V noted.
[2020-02-24] MEDS: methylPREDNISolone SOD SUCC 40 MG/ML VL IV SCH (21:53)
[2020-02-24] MEDS: SENNA 8.6 MG TAB PO SCH (21:54)
[2020-02-24] MEDS: TEMAZEPAM 15 MG CAP PO PRN (22:16)
--- NOTE | 2020-02-24 22:55 | NUR ---
Respiratory note: PLACED PT ON SIMPLE MASK AT THIS TIME AT 6L DUE TO NOSE BLEED. PT TOLERATING WELL.
[2020-02-25] VITALS: BP 114/67
[2020-02-25] MEDS: oxyCODONE HCL 5MG TAB PO SCH ×4 (00:02→17:37)
--- NOTE | 2020-02-25 01:30 | NUR ---
PERSONAL BELONGINGS I OBTAINED A SEALED ENVELOPE NUMBERED [id number] FROM [employer] IT WAS MARKED TO HAVE A TOTAL OF $700.00 IN [place] IN IT. THE ENVELOPE WAS PLACED IN THE SLIP MIXER OFFICE IN THE LOCKED AND SECURE DRAWER WITH DELAROSA [place].
[2020-02-25 04:00] VITALS: BP 124/67
[2020-02-25] MEDS: GABAPENTIN 300 MG CAP PO SCH ×3 (05:41→22:35)
[2020-02-25] MEDS: BACLOFEN 10 MG TAB PO SCH ×3 (05:41→22:36)
[2020-02-25] MEDS: OXYBUTYNIN CHL 5 MG TAB PO SCH ×3 (05:41→22:36)
[2020-02-25] MEDS: MIDODRINE HCL 10 MG TAB PO SCH ×3 (05:42→17:37)
[2020-02-25] MEDS: PIPERACILLIN-TAZOB 3.375GM 100 ML IV SCH ×3 (05:43→22:33)
[2020-02-25] MEDS: ALBUTEROL SULF 2.5 MG/0.5ML(0.5%) NEB SOLN NEB SCH ×3 (06:35→22:24)
[2020-02-25] MEDS: IPRATROPIUM BROM 0.5 MG/2.5ML INH SOL NEB SCH ×3 (06:36→22:24)
[2020-02-25 08:00] VITALS: BP 121/63
[2020-02-25] MEDS: Ensure HIGH Protein Chocolate 8oz Bottle PO SCH ×3 (08:00→18:04)
--- NOTE | 2020-02-25 08:30 | NUR ---
Opening Shift Note Assumed care of patient, awake and alert. No S/S of distress/SOB or pain. Patient saturation 92% at 2 LPM oxygen via nasal cannula. Kept patient NPO for abdominal CT. See interventions for complete assessment. Bed locked on low position, side rails up x2, bed alarms on at all times, call banuelos within reach, instructed on POC and to call for assist PRN, will continue to monitor for changes Q1hr and PRN.
[2020-02-25] MEDS: MILK OF MAGNESIA 30ML SUSP PO SCH (10:00)
[2020-02-25] MEDS: ENOXAPARIN SOD 40 MG/0.4 ML SYRINGE SC SCH (10:23)
[2020-02-25] MEDS: methylPREDNISolone SOD SUCC 40 MG/ML VL IV SCH ×2 (10:23→22:34)
[2020-02-25] MEDS: MORPHINE SULF 30 mg ER tab PO SCH ×2 (10:24→22:00)
[2020-02-25] MEDS ORDERED: IOHEXOL 350 MG/ML 100ML IJ ONE ×2 (10:29→10:40)
--- NOTE | 2020-02-25 10:30 | NUR ---
Sputum sample sent to lab
--- NOTE | 2020-02-25 10:35 | NUR ---
Patient out of room to CT scan.
[2020-02-25] MEDS ORDERED: FUROSEMIDE 20 MG/2 ML VIAL IV ONE (10:45)
--- NOTE | 2020-02-25 11:00 | NUR ---
Patient back to room from CT
--- NOTE | 2020-02-25 11:44 | NUR ---
Dr Green at bedside, updated on patient's status. Patient seen and examined. Received verbal order to start patient on Colace, read back and verified. Will carry out.
[2020-02-25 12:00] VITALS: BP 99/62
[2020-02-25] MEDS ORDERED: DOCUSATE SOD 100 MG CAP PO PRN (12:00)
[2020-02-25] MEDS: ZINC SULFATE 220mg CAP or TAB PO SCH (12:35)
[2020-02-25] MEDS: FAMOTIDINE 20 MG TAB PO SCH (12:37)
[2020-02-25] MEDS: ASCORBIC ACID 1,000 MG TAB PO SCH (12:37)
[2020-02-25] MEDS: CHOLECALCIFEROL (VITD3) 1,000IU=25mCg TAB PO SCH (12:37)
[2020-02-25] MEDS: DOXYCYCLINE 100MG/250ML 250 ML IV SCH ×2 (12:52→22:33)
[2020-02-25] MEDS ORDERED: MAGNESIUM CITRATE SOLUTION 300 ML BTL PO PRN ×2 (14:00→14:15)
--- NOTE | 2020-02-25 14:00 | NUR ---
Dr Banda at bedside, updated on patient's status. Patient seen and examined. Received verbal order to discontinue Colace and start patient on Magnesium Citrate PRN. Read back and verified. Will carry out.
--- NOTE | 2020-02-25 14:15 | NUR ---
Patient instructed and motivated on use of IS, will do breathing exercises.
--- NOTE | 2020-02-25 14:37 | NUR ---
Dr Howard at bedside, updated on patient's status. Patient seen and examined. Will carry out new orders.
--- NOTE | 2020-02-25 14:50 | NUR ---
ALOK pt transferred to floor HELGA DAVIDSON transferred to Tele floor via hospital bed on equipment monitor phototypesetting and portable 02. All patient medications and personal belongings including black cellphone with junior estimator, pink back pack and black back pack transferred with patient to receiving floor. Patient care transferred to Treasure WOLFE.
--- NOTE | 2020-02-25 14:57 | NUR ---
ALOK downgrade Resumed care of patient, awake and alert. No S/S of distress/SOB or pain. Patient saturation 94% at 2L oxygen via nasal cannula. Will attempt to titrate down as per order. Bed locked on low position, side rails up x2, bed alarms on at all times, call banuelos within reach, instructed on POC and to call for assist PRN, will continue to monitor for changes Q1hr and PRN.
[2020-02-25] MEDS ORDERED: LACTULOSE 20Gm/30ML SOLN PO PRN (15:00)
[2020-02-25 15:29] VITALS: BP 91/59
[2020-02-25] MEDS: METOCLOPRAMIDE HCL 5MG/ml INJ 2ml VIAL IV SCH ×2 (16:07→22:34)
[2020-02-25] MEDS: PANTOPRAZOLE 40 MG TAB PO SCH ×2 (16:07→22:35)
--- NOTE | 2020-02-25 17:00 | NUR ---
Paged Dr Chairez regarding Cardiology consult. Awaiting call back.
--- NOTE | 2020-02-25 17:31 | NUR ---
Received call from Dr Chairez, made aware of consult. Informed that patient already moved to room 221B. verbalized understanding.
[2020-02-25 21:55] VITALS: BP 130/74
[2020-02-25] MEDS: SENNA 8.6 MG TAB PO SCH (22:00)
[2020-02-25] MEDS: MAGNESIUM CITRATE SOLUTION 300 ML BTL PO SCH (22:38)
[2020-02-26] MEDS ORDERED: oxyCODONE HCL 5MG TAB ONE ×3 (04:40→05:17)
[2020-02-26 05:00] VITALS: BP 122/73
[2020-02-26] MEDS ORDERED: oxyCODONE HCL 5MG TAB PO ONE (05:00)
[2020-02-26] MEDS: oxyCODONE HCL 5MG TAB PO SCH ×4 (05:22→17:36)
[2020-02-26] MEDS: PIPERACILLIN-TAZOB 3.375GM 100 ML IV SCH ×3 (05:48→22:39)
[2020-02-26] MEDS: METOCLOPRAMIDE HCL 5MG/ml INJ 2ml VIAL IV SCH ×3 (05:48→22:39)
[2020-02-26] MEDS: GABAPENTIN 300 MG CAP PO SCH ×3 (05:49→22:40)
[2020-02-26] MEDS: OXYBUTYNIN CHL 5 MG TAB PO SCH ×3 (05:49→22:41)
[2020-02-26] MEDS: MIDODRINE HCL 10 MG TAB PO SCH ×3 (05:49→17:36)
[2020-02-26] MEDS: BACLOFEN 10 MG TAB PO SCH ×3 (05:50→22:40)
[2020-02-26 06:29] LABS: Basophils # (auto) 0 10 ^3/uL (0-0.2); Basophils % (auto) 0.1 % (0.0-2.0); Eosinophils # (auto) 0 10 ^3/uL (0-0.8); Hematocrit 35.3 % (41.0-53.0); Hemoglobin 11.5 g/dL (13.5-17.5); Lymphocytes # (auto) 0.5 10 ^3/uL (0.4-5.4); Lymphocytes % (auto) 7.8 % (10.0-50.0); Mean Corpuscular Hemoglobin 26.5 pg (28.0-32.0); Mean Corpuscular Hgb Conc. 32.5 g/dL (32.0-36.0); Mean Corpuscular Volume 81.6 fL (80.0-100.0); Monocytes # (auto) 0.3 10 ^3/uL (0-1.3); Monocytes % (auto) 5.6 % (0.0-12.0); Neutrophils # (auto) 5.3 10 ^3/uL (1.6-8.6); Neutrophils % (auto) 86.5 % (37.0-80.0); Platelet Count (auto) 168 10^3/uL (140-450); Red Blood Cells 4.32 10^6/uL (4.5-5.90); Red Cell Distribution Width 14.7 % (11.8-14.3); White Blood Cell 6.1 10^3/uL (4.4-10.8)
[2020-02-26 06:46] LABS: Calcium 9.2 mg/dL (8.5-10.1); Potassium 4.3 mmol/L (3.5-5.1)
[2020-02-26 06:50] LABS: BUN/Creatinine Ratio 21.3
[2020-02-26] MEDS: ALBUTEROL SULF 2.5 MG/0.5ML(0.5%) NEB SOLN NEB SCH ×3 (07:15→22:25)
[2020-02-26] MEDS: IPRATROPIUM BROM 0.5 MG/2.5ML INH SOL NEB SCH ×3 (07:15→22:25)
--- NOTE | 2020-02-26 07:22 | NUR ---
Opening Shift Note Assumed care of patient, awake and alert. No S/S of distress/SOB or pain. Patient saturation 93% at 1L oxygen via nasal cannula. See interventions for complete assessment. Bed locked on low position, side rails up x2, bed alarms on at all times, call banuelos within reach, instructed on POC and to call for assist PRN, will continue to monitor for changes Q1hr and PRN.
[2020-02-26 07:41] VITALS: BP 122/73
[2020-02-26] MEDS: Ensure HIGH Protein Chocolate 8oz Bottle PO SCH ×3 (08:22→17:31)
--- NOTE | 2020-02-26 08:45 | NUR ---
Patient belongings moved to safe This patients belonging envelope was moved from the lunchroom food service supervisor office drawer to the safe.
[2020-02-26 09:00] VITALS: BP 119/66
[2020-02-26] MEDS: MILK OF MAGNESIA 30ML SUSP PO SCH (09:37)
[2020-02-26] MEDS: DOXYCYCLINE 100MG/250ML 250 ML IV SCH ×2 (09:37→20:54)
[2020-02-26] MEDS: PANTOPRAZOLE 40 MG TAB PO SCH ×2 (09:38→22:43)
[2020-02-26] MEDS: methylPREDNISolone SOD SUCC 40 MG/ML VL IV SCH ×2 (09:38→22:39)
[2020-02-26] MEDS: MAGNESIUM CITRATE SOLUTION 300 ML BTL PO SCH ×2 (09:38→22:00)
[2020-02-26] MEDS: ENOXAPARIN SOD 40 MG/0.4 ML SYRINGE SC SCH (09:38)
[2020-02-26] MEDS: MORPHINE SULF 30 mg ER tab PO SCH ×2 (09:39→22:42)
[2020-02-26] MEDS: ZINC SULFATE 220mg CAP or TAB PO SCH (09:39)
[2020-02-26] MEDS: CHOLECALCIFEROL (VITD3) 1,000IU=25mCg TAB PO SCH (09:40)
[2020-02-26] MEDS: ASCORBIC ACID 1,000 MG TAB PO SCH (09:40)
--- NOTE | 2020-02-26 12:36 | NUR ---
Dr Howard at bed side assessing patient. New orders in place. Will carry out.
[2020-02-26] MEDS ORDERED: GOLYTELY 4L KIT PO ONE (12:45)
[2020-02-26 13:00] VITALS: BP 156/87
--- NOTE | 2020-02-26 15:30 | NUR ---
Dr. Banda at bed side discussing POC with patient. Patient verbalizes understanding. Per MD possible DC in AM on home health if stable.
--- NOTE | 2020-02-26 16:50 | NUR ---
Patients preferred pharmacy reviewed.
[2020-02-26 17:24] VITALS: BP 120/74
--- NOTE | 2020-02-26 18:55 | NUR ---
Colostomy bag and ileal conduit changed
--- NOTE | 2020-02-26 20:00 | NUR ---
Opening Shift Note Assumed care of patient, awake, alert and oriented. No S/S of distress/SOB or pain. Instructed on POC and to call for assist PRN. Bed locked, in lowest position, call light within reach, side rails up x2. Will continue to monitor for changes Q1hr and PRN.
[2020-02-26 22:00] VITALS: BP 148/83
[2020-02-26] MEDS: SENNA 8.6 MG TAB PO SCH (22:43)
[2020-02-27] MEDS: oxyCODONE HCL 5MG TAB PO SCH ×4 (00:39→18:00)
[2020-02-27] MEDS: TEMAZEPAM 15 MG CAP PO PRN (02:08)
[2020-02-27] MEDS: PIPERACILLIN-TAZOB 3.375GM 100 ML IV SCH (05:45)
[2020-02-27] MEDS: GABAPENTIN 300 MG CAP PO SCH ×2 (05:46→14:22)
[2020-02-27] MEDS: METOCLOPRAMIDE HCL 5MG/ml INJ 2ml VIAL IV SCH (05:46)
[2020-02-27] MEDS: OXYBUTYNIN CHL 5 MG TAB PO SCH ×2 (05:46→14:22)
[2020-02-27] MEDS: BACLOFEN 10 MG TAB PO SCH ×2 (05:47→14:22)
[2020-02-27] MEDS: MIDODRINE HCL 10 MG TAB PO SCH ×3 (05:47→18:00)
[2020-02-27 06:00] VITALS: BP 115/69
[2020-02-27 06:40] LABS: Albumin 2.6 g/dL (3.4-5.0); Calcium 8.9 mg/dL (8.5-10.1); Potassium 4.6 mmol/L (3.5-5.1)
[2020-02-27 06:44] LABS: BUN/Creatinine Ratio 26.3; Bilirubin, Total 0.3 mg/dL (0.2-1.0); Total Protein 6.8 g/dL (6.4-8.2)
[2020-02-27] MEDS: ALBUTEROL SULF 2.5 MG/0.5ML(0.5%) NEB SOLN NEB SCH ×2 (06:45→14:04)
[2020-02-27] MEDS: IPRATROPIUM BROM 0.5 MG/2.5ML INH SOL NEB SCH ×2 (06:45→14:04)
--- NOTE | 2020-02-27 06:52 | NUR ---
PAIN ASSESSMENT Patient c/o abdominal pain and hip pain rating at a 9. Patient was provided with ice packs and pillows are under bony prominences/hips as patient likes. Will continue care.
[2020-02-27 07:37] LABS: Basophils # (auto) 0 10 ^3/uL (0-0.2); Basophils % (auto) 0.2 % (0.0-2.0); Eosinophils # (auto) 0 10 ^3/uL (0-0.8); Lymphocytes # (auto) 1.1 10 ^3/uL (0.4-5.4); Neutrophils # (auto) 4.9 10 ^3/uL (1.6-8.6); Red Cell Distribution Width 14.9 % (11.8-14.3); White Blood Cell 6.7 10^3/uL (4.4-10.8)
[2020-02-27 07:39] LABS: Eosinophils % (auto) 0.1 % (0.0-7.0); Hematocrit 39.3 % (41.0-53.0); Hemoglobin 12.6 g/dL (13.5-17.5); Lymphocytes % (auto) 16.2 % (10.0-50.0); Mean Corpuscular Hemoglobin 26.3 pg (28.0-32.0); Mean Corpuscular Hgb Conc. 32.1 g/dL (32.0-36.0); Mean Corpuscular Volume 81.9 fL (80.0-100.0); Monocytes # (auto) 0.7 10 ^3/uL (0-1.3); Monocytes % (auto) 10.7 % (0.0-12.0); Neutrophils % (auto) 72.8 % (37.0-80.0); Nucleated Red Blood Cells % 0.1 %; Platelet Count (auto) 186 10^3/uL (140-450)
--- NOTE | 2020-02-27 08:21 | NUR ---
Faxed transfer request to [facility]. I spoke with Faby at [facility] transfer center, she said they can not accept this patient at this time-they are only accepting emergent transfers.
[2020-02-27 09:00] VITALS: BP 100/57
--- NOTE | 2020-02-27 09:53 | NUR ---
UPDATED SHAREESE ON POC PER HER REQUEST. PATIENT OKAY'D INFORMATION TO AND SET UP NEW PW "[place]".
[2020-02-27] MEDS: ASCORBIC ACID 1,000 MG TAB PO SCH (10:00)
[2020-02-27] MEDS: DOXYCYCLINE 100MG/250ML 250 ML IV SCH (10:23)
[2020-02-27] MEDS: MAGNESIUM CITRATE SOLUTION 300 ML BTL PO SCH (10:24)
[2020-02-27] MEDS: CHOLECALCIFEROL (VITD3) 1,000IU=25mCg TAB PO SCH (10:25)
[2020-02-27] MEDS: ENOXAPARIN SOD 40 MG/0.4 ML SYRINGE SC SCH (10:25)
[2020-02-27] MEDS: PANTOPRAZOLE 40 MG TAB PO SCH (10:25)
[2020-02-27] MEDS: MILK OF MAGNESIA 30ML SUSP PO SCH (10:25)
[2020-02-27] MEDS: ZINC SULFATE 220mg CAP or TAB PO SCH (10:26)
[2020-02-27] MEDS: Ensure HIGH Protein Chocolate 8oz Bottle PO SCH ×3 (10:26→19:37)
[2020-02-27] MEDS: methylPREDNISolone SOD SUCC 40 MG/ML VL IV SCH (10:26)
[2020-02-27] MEDS: MORPHINE SULF 30 mg ER tab PO SCH (10:28)
--- NOTE | 2020-02-27 12:28 | NUR ---
NOTIFIED MD OF MICRO RESULTS.
[2020-02-27] MEDS ORDERED: ERTAPENEM SOD INJ 1 GM in SODIUM CHL 0.9% 50 ML IV SCH (12:30)
[2020-02-27] MEDS ORDERED: SENN-51 PO (12:56)
[2020-02-27] MEDS ORDERED: FAM20T PO (12:56)
[2020-02-27] MEDS ORDERED: POLY335015 PO (12:56)
[2020-02-27] MEDS ORDERED: AMOX500T3 PO (12:57)
[2020-02-27 13:00] VITALS: BP 198/113
--- NOTE | 2020-02-27 13:02 | NUR ---
I faxed home IV ATB order to [facility].
--- NOTE | 2020-02-27 15:08 | NUR ---
D/C Planning Regarding Social Service consult for home health IV abx with Ertapenem 1gh IV daily via midline for 14 days. KAMILA Hudson will complete the IV abx portion of the order. Nithya with [facility] advised me patient has been on service with [facility]. Faxed clinical information to [facility]. Per Carlos Eduardo with [facility] ) patient has been accepted and service to start within 24-48hrs upon d/c day. Obtain authorization from [facility] [id number].
--- NOTE | 2020-02-27 15:36 | NUR ---
I spoke with Clair at [facility] [phone] and let her know that I was still waiting for confirmation on home health agency and that I would give her a call back.
--- NOTE | 2020-02-27 15:58 | NUR ---
assessment Patient is a 49 year old male who is alert and oriented. Prior to admission patient lived home with his Darcy valenzuela and functioned with assistance. Patient is a functional paraplegic. Per patient he will return home to his prior living arrangements post discharge and family will transport him home. Patient informed me he has a wheelchair for home use. Patient informed me he has good family support. Patient will need home IV ABX on discharge. Becca piano case maker and AMANDA Velez will satisfy order. I informed patient he has a right to speak to a drug abuse social worker regarding all care. I informed patient he has a right to participate in any and all discharge planning. Patient is aware of visiting hours on the hospital floor. I informed patient he has a right to privacy. Patient does not have a POA or an advanced directive. I have offered patient information on POA and advanced directives and he refused. I informed the patient the advantages and benefits of having an Advanced Directive. Patient verbalized understanding and agreed to discharge plan. Addendum: 02/27/20 at 1559 by Meme CARRILLO Amended: Links added.
--- NOTE | 2020-02-27 16:12 | NUR ---
I faxed flush order to [facility]. I called Clair at [facility] to let her know that patient would be followed by [facility]-left message-asked her to call me back to let me know what delivery time would be.
--- NOTE | 2020-02-27 16:36 | NUR ---
I received a message from Clair at [facility]-they will deliver to patient's home between 7-11pm john, she has already spoken with the family regarding delivery time.
[2020-02-27 16:50] VITALS: BP 146/78
[2020-02-27] MEDS ORDERED: PERCOT PO (16:52)
[2020-02-27 17:00] VITALS: BP 141/84
--- NOTE | 2020-02-27 17:28 | NUR ---
D/C Planning Faxed transportation form request to [facility] requesting for a 18:00 up time via [employer]. Transportation has been arranged with [employer]:) via [employer]. Informed AIDEN Damon.
--- NOTE | 2020-02-27 18:52 | NUR ---
SPOKE WITH [employer] REGARDING TRANSPORTATION ETA. ENDORSED TO NOC NURSE.
--- NOTE | 2020-02-27 18:56 | NUR ---
TELE MONITOR RETURNED.
--- NOTE | 2020-02-27 19:31 | NUR ---
EDUCATION GIVEN TO PATIENT REGARDING DISCHARGE, F/U, [facility]. CM SPOKE WITH ABOUT THIS WELL. EDUCATION ALSO GIVEN ON MEDICATIONS, ACTIVITY AND DIET WELL NOTABLE S/S TO REPORT SUCH CP OR SOB. PATIENT VERBALIZED UNDERSTANDING. PATIENT'S MONEY WAS COUNTED AND RETURNED TO HIM, PAPER WORK WAS SIGNED FOR RETURN OF VALUABLES. VS WNL. MIDLINE DRESSING IS C/D/I, PT WILL BE GOING HOME WITH LINE FOR ABX. TELE MONITOR REMOVED AND RETURNED. CLOTHES PROVIDED TO PATIENT FOR DC. REPORT GIVEN TO ELISHA TAY NURSE.
--- NOTE | 2020-02-27 19:40 | NUR ---
PATIENT DISCHARGED PATIENT WAS PROVIDED WITH CLOTHES AND SOCKS AND WAS DRESSED BEFORE LEAVING. PATIENT WAS A&O X'S 4 WITH NO S/S OF DISTRESS. PATIENT CALLED HIS TO NOTIFY HER THAT HE WAS LEAVING. PATIENT WAS [facility]SP[facility] AND LEFT HOME WITH TRANSPORT. MIDLINE DRESSING WAS C/D/I AND PATIENT WILL BE GOING HOME WITH THIS LINE FOR HOME ANTIBIOTICS. PATIENT LEFT WITH ALL DISCHARGE PAPERWORK AND PERSONAL BELONGINGS.
== END 2020-02-27 19:40 | disposition home health service (06) | DRG 466 ==
LOC: EDBD 01:39 → ER 01:45 → TELE 01:46 → TELE-EAST 07:19 → DOU IN ICU 10:22 → TELE-CENTR 02-25 14:57
PROVIDERS: ADMIT Nurse Practitioner; ATTEND Internal Medicine
PROC: 05HC33Z Insertion of Infusion Device into Left Basilic Vein, Percutaneous Approach (ICD-10-PCS; principal; 2020-02-27)
PROC: 3E03329 Introduction of Other Anti-infective into Peripheral Vein, Percutaneous Approach (ICD-10-PCS; 2020-02-27)
DX: T83.511A Infection and inflammatory reaction due to indwelling urethral catheter, initial encounter (principal); J96.01 Acute respiratory failure with hypoxia; J18.9 Pneumonia, unspecified organism; E46 Unspecified protein-calorie malnutrition; D68.9 Coagulation defect, unspecified; G82.20 Paraplegia, unspecified; F11.20 Opioid dependence, uncomplicated; J44.1 Chronic obstructive pulmonary disease with (acute) exacerbation; N39.0 Urinary tract infection, site not specified; J45.901 Unspecified asthma with (acute) exacerbation; Z16.12 Extended spectrum beta lactamase (ESBL) resistance; R73.9 Hyperglycemia, unspecified; I10 Essential (primary) hypertension; D72.829 Elevated white blood cell count, unspecified; G89.4 Chronic pain syndrome; K59.00 Constipation, unspecified; K21.9 Gastro-esophageal reflux disease without esophagitis; D64.9 Anemia, unspecified; Z74.01 Bed confinement status; Z82.0 Family history of epilepsy and other diseases of the nervous system; Z82.49 Family history of ischemic heart disease and other diseases of the circulatory system; Z87.442 Personal history of urinary calculi; Z93.3 Colostomy status; Z93.6 Other artificial openings of urinary tract status; Z87.440 Personal history of urinary (tract) infections; Z88.1 Allergy status to other antibiotic agents; Z20.828 Contact with and (suspected) exposure to other viral communicable diseases
CPT/HCPCS: 36415; 36600; 71045; 71260; 74177; 80048; 80053; 81001; 82728; 82805; 83605; 83615; 83735; 83880; 84443; 84484; 85025; 85379; 85610; 85730; 86141; 87040; 87070; 87077; 87086; 87088; 87186; 87205; 87804; 87880; 93005; 93306; 94640; 96360; 96361; G0378; J0330; J1335; J2543; J3490

== ENCOUNTER 2020-03-22 12:44 | Inpatient (IN) | payer MEDICAID ==
[~2020-03-22] VITALS: Ht 172.7 cm; Wt 54.6 kg
[2020-03-22] VITALS (39 sets, daily range): BP systolic 83–177; BP diastolic 51–95
[~2020-03-22 12:44] MED LIST changes: +AMOX500T3 PO; -DOCU50CA2; +PERCOT PO; +SENN-51 PO
[2020-03-22] MEDS ORDERED: ETOMIDATE (2MG/ML) 20ML VIAL IV ONE ×2 (12:53→13:15)
[2020-03-22] MEDS ORDERED: SUCCINYLCHOLINE CHLORIDE 20 MG/ML 10ML VIAL IV ONE ×2 (12:54→13:15)
[2020-03-22] MEDS: MIDAZOLAM DRIP 50 mg/50mL 50 ML IV SCH ×3 (13:08→22:28)
[2020-03-22 13:23] LABS: Basophils # (auto) 0 10 ^3/uL (0-0.2); Eosinophils # (auto) 0.1 10 ^3/uL (0-0.8); Lymphocytes # (auto) 1.6 10 ^3/uL (0.4-5.4); Neutrophils # (auto) 1.1 10 ^3/uL (1.6-8.6); Nucleated Red Blood Cells % 0.1 %; White Blood Cell 3.2 10^3/uL (4.4-10.8)
[2020-03-22 13:25] LABS: Eosinophils % (auto) 3.2 % (0.0-7.0); Hematocrit 38.9 % (41.0-53.0); Hemoglobin 12.4 g/dL (13.5-17.5); Mean Corpuscular Hemoglobin 26.1 pg (28.0-32.0); Mean Corpuscular Volume 81.5 fL (80.0-100.0); Monocytes # (auto) 0.3 10 ^3/uL (0-1.3); Monocytes % (auto) 10.7 % (0.0-12.0); Neutrophils % (auto) 35.1 % (37.0-80.0); Platelet Count (auto) 125 10^3/uL (140-450); Red Blood Cells 4.77 10^6/uL (4.5-5.90); Red Cell Distribution Width 15.7 % (11.8-14.3)
[2020-03-22 13:35] LABS: Albumin 2.9 g/dL (3.4-5.0); Anion Gap 5 (5-15); Blood Urea Nitrogen 10 mg/dL (7-18); Calcium 8.6 mg/dL (8.5-10.1); Carbon Dioxide 31 mmol/L (21-32); Chloride 103 mmol/L (98-107); Glucose 95 mg/dL (74-106); Magnesium 2.6 mg/dL (1.6-2.6); Potassium 4.6 mmol/L (3.5-5.1); Sodium 139 mmol/L (136-145)
[2020-03-22 13:39] LABS: Lactic Acid w/Reflex 2.4 mmol/L (0.4-2.0)
[2020-03-22 13:41] LABS: Alanine Aminotransferase 17 U/L (16-61); Alkaline Phosphatase 88 U/L (45-117); Aspartate Aminotransferase 16 U/L (15-37); BUN/Creatinine Ratio 10.9; Bilirubin, Total 0.3 mg/dL (0.2-1.0); GFR African American 112 mL/min; GFR Non-African American 93 mL/min; INR 1.31 (0.9-1.15); Partial Thromboplastin Time 24.1 sec (23.64-32.05); Total Protein 6.6 g/dL (6.4-8.2)
[2020-03-22] MEDS: DOPamine 1600MCG/ML D5W 250 ML IV SCH (14:19)
[2020-03-22] MEDS ORDERED: SODIUM CHLORIDE 0.9% 1,000 ML IV ONE ×2 (15:15)
[2020-03-22] MEDS ORDERED: MORPHINE SULF INJ 2 MG/ML SYRINGE 1ML IV PRN (15:45)
[2020-03-22] MEDS ORDERED: NITROGLYCERIN 0.4 MG SL TAB SL PRN (15:45)
[2020-03-22] MEDS ORDERED: ALBUTEROL SULF 2.5 MG/0.5ML(0.5%) NEB SOLN NEB PRN (17:00)
[2020-03-22] MEDS ORDERED: hydrALAZINE HCL 20 MG/ML VL IV PRN ×2 (17:45→18:15)
[2020-03-22] MEDS: ALBUTEROL SULF 2.5 MG/0.5ML(0.5%) NEB SOLN NEB SCH (18:13)
[2020-03-22] MEDS: IPRATROPIUM BROM 0.5 MG/2.5ML INH SOL NEB SCH (18:13)
[2020-03-22] MEDS ORDERED: ENALAPRILAT 1.25 MG/ML-1ML VIAL IV PRN (18:15)
[2020-03-22] MEDS: DOXYCYCLINE 100MG/250ML 250 ML IV SCH (18:16)
[2020-03-22 19:38] LABS: CRP High Sensitivity 0.66 mg/dL (< 0.3)
[2020-03-23] VITALS (100 sets, daily range): BP systolic 86–139; BP diastolic 47–98
[2020-03-23] MEDS: ALBUTEROL SULF 2.5 MG/0.5ML(0.5%) NEB SOLN NEB SCH ×4 (00:12→18:39)
[2020-03-23] MEDS: IPRATROPIUM BROM 0.5 MG/2.5ML INH SOL NEB SCH ×4 (00:12→18:39)
[2020-03-23] MEDS ORDERED: ACETAMINOPHEN 650 mg PER 20 mL UD GT PRN (00:45)
[2020-03-23] MEDS: DOPamine 1600MCG/ML D5W 250 ML IV SCH ×2 (01:49→15:16)
[2020-03-23] MEDS: MIDAZOLAM DRIP 50 mg/50mL 50 ML IV SCH ×5 (02:37→22:45)
[2020-03-23] MEDS: DOXYCYCLINE 100MG/250ML 250 ML IV SCH ×2 (04:44→16:22)
[2020-03-23] MEDS ORDERED: cefTRIAXone 1GM/50ML D5W 50 ML IV SCH (09:00)
[2020-03-23] MEDS: ENOXAPARIN SOD 40 MG/0.4 ML SYRINGE SC SCH (09:42)
[2020-03-23] MEDS: ASPirin 81 mg TAB NG SCH (09:42)
[2020-03-23 11:17] LABS: BUN/Creatinine Ratio 15.2; Calcium 8.8 mg/dL (8.5-10.1); Potassium 4.1 mmol/L (3.5-5.1)
[2020-03-23 11:21] LABS: Urine Amorphous Crystal MANY /hpf (None Seen); Urine Bacteria FEW /hpf (None Seen); Urine Blood Negative /uL (Negative); Urine WBC 90 /hpf (0 - 3)
[2020-03-23 11:28] LABS: Amphetamine Screen, Urine NEGATIVE (NEGATIVE); Barbiturate Scree,Urine NEGATIVE (NEGATIVE); Benzodiazephine Screen, Urine POSITIVE (NEGATIVE); Cocaine Screen, Urine NEGATIVE (NEGATIVE); Opiate Scree,Urine POSITIVE (NEGATIVE); Phencyclidine Screen, Urine NEGATIVE (NEGATIVE)
[2020-03-23 11:39] LABS: Cannabinoid Screen, Urine NEGATIVE (NEGATIVE)
[2020-03-23] MEDS ORDERED: DOPamine 1600mCg/ml 400MG/250ml NSorD5 KIT/BAG IV ONE (11:58)
[2020-03-23] MEDS ORDERED: SODIUM BICARBONATE 8.4% INJ 50ML SYRINGE IV ONE (11:58)
[2020-03-23] MEDS ORDERED: IOHEXOL 350 MG/ML 100ML IJ ONE (12:17)
[2020-03-23] MEDS ORDERED: PROPOFOL 100 ML IV ONE (13:23)
[2020-03-23] MEDS: PROPOFOL 100 ML IV SCH ×2 (13:34→22:46)
[2020-03-23] MEDS: DexMEDEtomidine 400 MCG in D5W 5% 96 ML IV SCH (14:21)
[2020-03-23] MEDS ORDERED: VANCOMYCIN PER PHARMACY 0 MG IV SCH (14:30)
[2020-03-23 14:49] LABS: Bilirubin, Direct 0.2 mg/dL (0-0.2)
[2020-03-23 14:52] LABS: Bilirubin, Total 0.6 mg/dL (0.2-1.0); Total Protein 6.8 g/dL (6.4-8.2)
[2020-03-23] MEDS: VANCOMYCIN 1GM/250ML 250 ML IV SCH ×2 (15:23→22:49)
[2020-03-24] VITALS (104 sets, daily range): BP systolic 83–161; BP diastolic 48–116
[2020-03-24] MEDS: IPRATROPIUM BROM 0.5 MG/2.5ML INH SOL NEB SCH ×4 (00:08→18:39)
[2020-03-24] MEDS: ALBUTEROL SULF 2.5 MG/0.5ML(0.5%) NEB SOLN NEB SCH ×4 (00:09→18:39)
[2020-03-24 04:36] LABS: Basophils # (auto) 0 10 ^3/uL (0-0.2); Eosinophils # (auto) 0 10 ^3/uL (0-0.8); Eosinophils % (auto) 0.8 % (0.0-7.0); Lymphocytes # (auto) 0.6 10 ^3/uL (0.4-5.4); Platelet Count (auto) 109 10^3/uL (140-450)
[2020-03-24 04:40] LABS: Basophils % (auto) 0.4 % (0.0-2.0); Hematocrit 34.8 % (41.0-53.0); Hemoglobin 11.7 g/dL (13.5-17.5); Lymphocytes % (auto) 13.4 % (10.0-50.0); Mean Corpuscular Hemoglobin 27.9 pg (28.0-32.0); Mean Corpuscular Hgb Conc. 33.7 g/dL (32.0-36.0); Mean Corpuscular Volume 82.8 fL (80.0-100.0); Monocytes # (auto) 0.7 10 ^3/uL (0-1.3); Monocytes % (auto) 15.4 % (0.0-12.0); Red Blood Cells 4.21 10^6/uL (4.5-5.90); Red Cell Distribution Width 15.5 % (11.8-14.3); White Blood Cell 4.3 10^3/uL (4.4-10.8)
[2020-03-24 05:00] LABS: Calcium 8.8 mg/dL (8.5-10.1); Potassium 3.8 mmol/L (3.5-5.1)
[2020-03-24] MEDS: DOXYCYCLINE 100MG/250ML 250 ML IV SCH ×2 (05:00→17:00)
[2020-03-24 05:03] LABS: BUN/Creatinine Ratio 12.7
[2020-03-24] MEDS: DexMEDEtomidine 400 MCG in D5W 5% 96 ML IV SCH ×2 (05:07→11:41)
[2020-03-24] MEDS: MIDAZOLAM DRIP 50 mg/50mL 50 ML IV SCH ×3 (06:04→23:08)
[2020-03-24] MEDS: VANCOMYCIN 1GM/250ML 250 ML IV SCH ×2 (06:33→21:41)
[2020-03-24] MEDS: ENOXAPARIN SOD 40 MG/0.4 ML SYRINGE SC SCH (10:00)
[2020-03-24] MEDS ORDERED: ACETYLCYSTEINE 20%(200MG/ML) SOL 4ML NEB ONE (10:00)
[2020-03-24] MEDS: ASPirin 81 mg TAB NG SCH (10:00)
[2020-03-24] MEDS ORDERED: ACETYLCYSTEINE 20%(200MG/ML) SOL 4ML ONE (10:17)
[2020-03-24] MEDS ORDERED: LIDOCAINE 2%HCL (LOCAL ANESTH.) INJ 20ML MDV ONE (10:34)
[2020-03-24] MEDS ORDERED: EPINEPHrine HCL 1 MG/1 ML AMP ONE (10:34)
[2020-03-24] MEDS ORDERED: SODIUM CHLORIDE LOCK 0 ML ONE (10:34)
[2020-03-24] MEDS ORDERED: LIDOCAINE HCL 2% TOP JELLY 5ML TOP ONE (10:35)
[2020-03-24] MEDS ORDERED: GLYCOPYRROLATE 0.2 MG/ML 1ML VIAL ONE (10:35)
[2020-03-24] MEDS: DOPamine 1600MCG/ML D5W 250 ML IV SCH (13:52)
[2020-03-24] MEDS: PROPOFOL 100 ML IV SCH (16:44)
[2020-03-24] MEDS: MUPIROCIN 2% OINT 15gm or 22gm EACHNOSTRI SCH (21:52)
[2020-03-25] VITALS (84 sets, daily range): BP systolic 79–191; BP diastolic 52–109
[2020-03-25] MEDS: IPRATROPIUM BROM 0.5 MG/2.5ML INH SOL NEB SCH ×3 (00:25→12:00)
[2020-03-25] MEDS: ALBUTEROL SULF 2.5 MG/0.5ML(0.5%) NEB SOLN NEB SCH ×3 (00:25→12:00)
[2020-03-25] MEDS: PROPOFOL 100 ML IV SCH (01:40)
[2020-03-25] MEDS: MIDAZOLAM DRIP 50 mg/50mL 50 ML IV SCH (04:02)
[2020-03-25 04:19] LABS: Basophils # (auto) 0 10 ^3/uL (0-0.2); Basophils % (auto) 0.3 % (0.0-2.0); Eosinophils # (auto) 0.1 10 ^3/uL (0-0.8); Hematocrit 36.1 % (41.0-53.0); Hemoglobin 11.6 g/dL (13.5-17.5); Lymphocytes % (auto) 18.1 % (10.0-50.0); Mean Corpuscular Hemoglobin 26.1 pg (28.0-32.0); Mean Corpuscular Hgb Conc. 32.1 g/dL (32.0-36.0); Mean Corpuscular Volume 81.3 fL (80.0-100.0); Monocytes # (auto) 0.5 10 ^3/uL (0-1.3); Monocytes % (auto) 9.8 % (0.0-12.0); Neutrophils % (auto) 70.8 % (37.0-80.0); Platelet Count (auto) 138 10^3/uL (140-450); Red Blood Cells 4.43 10^6/uL (4.5-5.90); Red Cell Distribution Width 16.1 % (11.8-14.3); White Blood Cell 5.6 10^3/uL (4.4-10.8)
[2020-03-25 04:27] LABS: Albumin 2.9 g/dL (3.4-5.0); BUN/Creatinine Ratio 15.4; Calcium 8.6 mg/dL (8.5-10.1); Potassium 3.7 mmol/L (3.5-5.1)
[2020-03-25 04:29] LABS: Bilirubin, Total 0.4 mg/dL (0.2-1.0); Total Protein 6.9 g/dL (6.4-8.2)
[2020-03-25] MEDS: DOXYCYCLINE 100MG/250ML 250 ML IV SCH (04:39)
[2020-03-25] MEDS ORDERED: SODIUM BICARBONATE 8.4% INJ 50ML SYRINGE ONE (09:55)
[2020-03-25] MEDS: VANCOMYCIN 1GM/250ML 250 ML IV SCH ×2 (09:58→23:30)
[2020-03-25] MEDS: ASPirin 81 mg TAB NG SCH (10:00)
[2020-03-25] MEDS ORDERED: SODIUM BICARBONATE 8.4 % INJ 50ML VIAL IV ONE (10:00)
[2020-03-25] MEDS: DexMEDEtomidine 400 MCG in D5W 5% 96 ML IV SCH (10:39)
[2020-03-25] MEDS ORDERED: MORPHINE SULF INJ 2 MG/ML SYRINGE 1ML IV ONE (10:45)
[2020-03-25] MEDS ORDERED: MORPHINE SULF INJ 2 MG/ML SYRINGE 1ML IV PRN (10:45)
[2020-03-25] MEDS: ENOXAPARIN SOD 40 MG/0.4 ML SYRINGE SC SCH (10:59)
[2020-03-25] MEDS: MUPIROCIN 2% OINT 15gm or 22gm EACHNOSTRI SCH ×2 (11:37→23:30)
[2020-03-25] MEDS: DOPamine 1600MCG/ML D5W 250 ML IV SCH (13:52)
[2020-03-25] MEDS ORDERED: METO-281 PO (14:50)
[2020-03-25] MEDS ORDERED: NALO1TAB2 PO (14:52)
[2020-03-25] MEDS ORDERED: PANC24002 PO (14:55)
[2020-03-25] MEDS ORDERED: LACT10SO3 PO (14:58)
[2020-03-25] MEDS ORDERED: OME20GT GT (15:01)
[2020-03-25] MEDS ORDERED: MID10T GT (15:01)
[2020-03-25] MEDS ORDERED: [UNRECOGNIZED DRUG - CODE] OR (15:02)
[2020-03-25] MEDS ORDERED: LACTULOSE 20Gm/30ML SOLN PO PRN (17:30)
[2020-03-25] MEDS ORDERED: ALBUTEROL SULF 2.5 MG/0.5ML(0.5%) NEB SOLN NEB PRN (17:30)
[2020-03-25] MEDS ORDERED: POLYETHYLENE GLYCOL 17 GM PWDR PO PRN (17:30)
[2020-03-25] MEDS ORDERED: PANCREATIC ENZYMES 4200 UNIT CAP PO SCH (18:00)
[2020-03-25] MEDS: PANCRELIPASE 24000 UNIT PO SCH (18:10)
[2020-03-25] MEDS ORDERED: IPRATROPIUM BROM 0.5 MG/2.5ML INH SOL NEB PRN (18:15)
[2020-03-25] MEDS: GABAPENTIN 300 MG CAP PO SCH ×2 (18:16→23:30)
[2020-03-25] MEDS: BACLOFEN 10 MG TAB PO PRN (18:16)
[2020-03-25] MEDS: METOCLOPRAMIDE HCL 10 MG TAB PO SCH ×2 (18:17→23:30)
[2020-03-25] MEDS: OXYCODONE W/ ACETAMINOPHEN 5/325MG TABLET PO PRN (19:08)
[2020-03-25] MEDS: OXYBUTYNIN CHL 5 MG TAB PO SCH (22:00)
[2020-03-25] MEDS: DOXYCYCLINE 100 MG TAB/CAP PO SCH (23:30)
[2020-03-25] MEDS: FAMOTIDINE 20 MG TAB PO SCH (23:30)
[2020-03-26] VITALS (10 sets, daily range): BP systolic 110–174; BP diastolic 80–95
[2020-03-26] MEDS: MORPHINE SULF INJ 2 MG/ML SYRINGE 1ML IV PRN ×4 (00:02→19:55)
[2020-03-26] MEDS: DexMEDEtomidine 400 MCG in D5W 5% 96 ML IV SCH (01:25)
[2020-03-26] MEDS: OXYCODONE W/ ACETAMINOPHEN 5/325MG TABLET PO PRN ×3 (02:08→21:11)
[2020-03-26] MEDS: BACLOFEN 10 MG TAB PO PRN ×3 (02:09→21:11)
[2020-03-26 04:31] LABS: Basophils # (auto) 0 10 ^3/uL (0-0.2); Eosinophils # (auto) 0 10 ^3/uL (0-0.8); Hemoglobin 11.9 g/dL (13.5-17.5); Lymphocytes # (auto) 1.3 10 ^3/uL (0.4-5.4); Monocytes # (auto) 0.7 10 ^3/uL (0-1.3); Neutrophils # (auto) 3.5 10 ^3/uL (1.6-8.6); White Blood Cell 5.5 10^3/uL (4.4-10.8)
[2020-03-26 04:33] LABS: Basophils % (auto) 0.6 % (0.0-2.0); Eosinophils % (auto) 0.4 % (0.0-7.0); Hematocrit 36.4 % (41.0-53.0); Lymphocytes % (auto) 23.1 % (10.0-50.0); Mean Corpuscular Hemoglobin 26.8 pg (28.0-32.0); Mean Corpuscular Hgb Conc. 32.8 g/dL (32.0-36.0); Mean Corpuscular Volume 81.6 fL (80.0-100.0); Monocytes % (auto) 12.8 % (0.0-12.0); Neutrophils % (auto) 63.1 % (37.0-80.0); Nucleated Red Blood Cells % 0.1 %; Platelet Count (auto) 148 10^3/uL (140-450); Red Blood Cells 4.45 10^6/uL (4.5-5.90); Red Cell Distribution Width 15.7 % (11.8-14.3)
[2020-03-26 04:50] LABS: Potassium 3.5 mmol/L (3.5-5.1)
[2020-03-26 04:54] LABS: BUN/Creatinine Ratio 20.3; Calcium 8.7 mg/dL (8.5-10.1)
[2020-03-26 05:00] LABS: INR 1.12 (0.9-1.15); Partial Thromboplastin Time 30.8 sec (23.64-32.05)
[2020-03-26] MEDS: MIDODRINE HCL 10 MG TAB GT SCH ×2 (05:00→11:30)
[2020-03-26] MEDS: GABAPENTIN 300 MG CAP PO SCH ×3 (06:00→21:09)
[2020-03-26] MEDS: OXYBUTYNIN CHL 5 MG TAB PO SCH ×3 (06:00→21:09)
[2020-03-26] MEDS: METOCLOPRAMIDE HCL 10 MG TAB PO SCH ×4 (06:00→21:10)
[2020-03-26] MEDS: PANCRELIPASE 24000 UNIT PO SCH ×3 (08:00→17:37)
[2020-03-26] MEDS: OMEPRAZOLE 20MG/10ML ORAL SUSP GT SCH (10:00)
[2020-03-26] MEDS: VANCOMYCIN 1GM/250ML 250 ML IV SCH ×2 (10:39→20:43)
[2020-03-26] MEDS: MUPIROCIN 2% OINT 15gm or 22gm EACHNOSTRI SCH ×2 (10:39→21:09)
[2020-03-26] MEDS: FLORASTOR (S. BOULARDII) 250 MG CAP PO SCH (10:40)
[2020-03-26] MEDS: DICYCLOMINE HCL 10 MG CAP PO SCH (10:40)
[2020-03-26] MEDS: ASPirin 81 mg TAB NG SCH (10:40)
[2020-03-26] MEDS: ENOXAPARIN SOD 40 MG/0.4 ML SYRINGE SC SCH (10:41)
[2020-03-26] MEDS: FAMOTIDINE 20 MG TAB PO SCH ×2 (10:41→21:10)
[2020-03-26] MEDS: MULTIPLE VITAMIN TAB PO SCH (10:41)
[2020-03-26] MEDS: DOXYCYCLINE 100 MG TAB/CAP PO SCH ×2 (10:41→21:10)
[2020-03-26] MEDS ORDERED: amLODIPine BESYLATE 5 MG TAB PO ONE (13:45)
[2020-03-26] MEDS ORDERED: LIDOCAINE 1% (LOCAL ANESTH.) PF 5ml SDV ID ONE (17:00)
[2020-03-27] MEDS: MORPHINE SULF INJ 2 MG/ML SYRINGE 1ML IV PRN ×2 (00:04→04:00)
[2020-03-27] MEDS ORDERED: NITROFURANTOIN 100 mg CAP PO ONE (01:15)
[2020-03-27 04:11] VITALS: BP 168/94
[2020-03-27] MEDS: OXYBUTYNIN CHL 5 MG TAB PO SCH ×2 (06:05→13:37)
[2020-03-27] MEDS: GABAPENTIN 300 MG CAP PO SCH ×2 (06:06→13:37)
[2020-03-27] MEDS: BACLOFEN 10 MG TAB PO PRN ×2 (06:06→13:37)
[2020-03-27] MEDS: METOCLOPRAMIDE HCL 10 MG TAB PO SCH ×2 (06:06→11:49)
[2020-03-27] MEDS: OXYCODONE W/ ACETAMINOPHEN 5/325MG TABLET PO PRN ×2 (06:07→14:36)
[2020-03-27 07:40] VITALS: BP 94/63
[2020-03-27] MEDS: PANCRELIPASE 24000 UNIT PO SCH ×2 (08:00→11:48)
[2020-03-27] MEDS: VANCOMYCIN 1GM/250ML 250 ML IV SCH (08:33)
[2020-03-27] MEDS: MUPIROCIN 2% OINT 15gm or 22gm EACHNOSTRI SCH (09:43)
[2020-03-27] MEDS: ASPirin 81 mg TAB NG SCH (09:44)
[2020-03-27] MEDS: OMEPRAZOLE 20MG/10ML ORAL SUSP GT SCH (09:44)
[2020-03-27] MEDS: FLORASTOR (S. BOULARDII) 250 MG CAP PO SCH (09:45)
[2020-03-27] MEDS: DICYCLOMINE HCL 10 MG CAP PO SCH (09:45)
[2020-03-27] MEDS: DOXYCYCLINE 100 MG TAB/CAP PO SCH (09:45)
[2020-03-27] MEDS: MULTIPLE VITAMIN TAB PO SCH (09:45)
[2020-03-27] MEDS: FAMOTIDINE 20 MG TAB PO SCH (09:46)
[2020-03-27] MEDS: ENOXAPARIN SOD 40 MG/0.4 ML SYRINGE SC SCH (09:46)
[2020-03-27] MEDS ORDERED: ASPI81CH43 NG (09:58)
[2020-03-27] MEDS ORDERED: NITR100C44 PO (09:58)
[2020-03-27] MEDS ORDERED: DOX100T PO (09:58)
[2020-03-27] MEDS ORDERED: MUPI2OIN2 EACHNOSTRI (09:58)
[2020-03-27] MEDS ORDERED: amLODIPine BESYLATE 5 MG TAB PO SCH (10:00)
[2020-03-27] MEDS ORDERED: NITROFURANTOIN 100 mg CAP PO SCH (10:00)
[2020-03-27 10:57] VITALS: BP 131/88
[2020-03-27 11:16] VITALS: BP 131/88
== END 2020-03-27 14:40 | disposition home health service (06) | DRG 720 ==
LOC: ER 12:44 → EDBD 12:44 → OVERFLOW 12:45 → ICU WEST 15:55 → DOU IN ICU 03-25 21:20
PROVIDERS: ADMIT Internal Medicine; ATTEND Hospitalist
PROC: 0BH17EZ Insertion of Endotracheal Airway into Trachea, Via Natural or Artificial Opening (ICD-10-PCS; principal; 2020-03-22)
PROC: 5A1945Z Respiratory Ventilation, 24-96 Consecutive Hours (ICD-10-PCS; 2020-03-22)
PROC: 02HV33Z Insertion of Infusion Device into Superior Vena Cava, Percutaneous Approach (ICD-10-PCS; 2020-03-22)
PROC: 0B9D8ZX Drainage of Right Middle Lung Lobe, Via Natural or Artificial Opening Endoscopic, Diagnostic (ICD-10-PCS; 2020-03-24)
DX: A41.9 Sepsis, unspecified organism (principal); J96.01 Acute respiratory failure with hypoxia; I46.9 Cardiac arrest, cause unspecified; G93.41 Metabolic encephalopathy; D61.818 Other pancytopenia; J18.9 Pneumonia, unspecified organism; E44.0 Moderate protein-calorie malnutrition; J90 Pleural effusion, not elsewhere classified; G82.20 Paraplegia, unspecified; I11.9 Hypertensive heart disease without heart failure; R00.1 Bradycardia, unspecified; I16.0 Hypertensive urgency; N39.0 Urinary tract infection, site not specified; J98.11 Atelectasis; G89.4 Chronic pain syndrome; F41.9 Anxiety disorder, unspecified; K21.9 Gastro-esophageal reflux disease without esophagitis; B95.62 Methicillin resistant Staphylococcus aureus infection as the cause of diseases classified elsewhere; J43.9 Emphysema, unspecified; Z74.01 Bed confinement status; Z79.891 Long term (current) use of opiate analgesic; Z79.899 Other long term (current) drug therapy; Z82.0 Family history of epilepsy and other diseases of the nervous system; Z82.49 Family history of ischemic heart disease and other diseases of the circulatory system; Z87.440 Personal history of urinary (tract) infections; Z93.3 Colostomy status; Z68.1 Body mass index [BMI] 19.9 or less, adult; Z88.1 Allergy status to other antibiotic agents
CPT/HCPCS: 31500; 31624; 36415; 36556; 36569; 36600; 70450; 71045; 71250; 71275; 74176; 80048; 80053; 80076; 80202; 80307; 81001; 82550; 82805; 83605; 83735; 83880; 84443; 84484; 85025; 85379; 85610; 85652; 85730; 86141; 87040; 87070; 87077; 87081; 87086; 87186; 87205; 92610; 93005; 93306; 93886; 93970; 94002; 94003; 94640; 99291; G0378; J0171; J0330; J2250; J2704; J3490; J7060

== ENCOUNTER 2020-04-05 08:50 | Inpatient (IN) | payer MEDICAID ==
[~2020-04-05] VITALS: Ht 185.4 cm; Wt 74.3 kg
[~2020-04-05 08:50] MED LIST changes: -AMOX500T3 PO; +ASPI81CH43 NG; +DOX100T PO; +LACT10SO3 PO; +METO-281 PO; +MID10T GT; +MUPI2OIN2 EACHNOSTRI; +NALO1TAB2 PO; +NITR100C44 PO; +OME20GT GT; +PANC24002 PO; +[UNRECOGNIZED DRUG - CODE] OR
[2020-04-05] MEDS ORDERED: SODIUM CHLORIDE 0.9% 1,000 ML IV ONE ×3 (09:24→10:22)
[2020-04-05 09:35] LABS: Basophils # (auto) 0 10 ^3/uL (0-0.2); Eosinophils # (auto) 0.1 10 ^3/uL (0-0.8); Hemoglobin 8.1 g/dL (13.5-17.5); Lymphocytes # (auto) 0.9 10 ^3/uL (0.4-5.4)
[2020-04-05 09:37] LABS: Eosinophils % (auto) 3.2 % (0.0-7.0); Hematocrit 25.3 % (41.0-53.0); Lymphocytes % (auto) 24.8 % (10.0-50.0); Mean Corpuscular Hemoglobin 26.6 pg (28.0-32.0); Mean Corpuscular Volume 83.1 fL (80.0-100.0); Monocytes # (auto) 0.2 10 ^3/uL (0-1.3); Monocytes % (auto) 5.3 % (0.0-12.0); Neutrophils # (auto) 2.5 10 ^3/uL (1.6-8.6); Neutrophils % (auto) 65.7 % (37.0-80.0); Nucleated Red Blood Cells % 0.3 %; Platelet Count (auto) 187 10^3/uL (140-450); Red Blood Cells 3.05 10^6/uL (4.5-5.90); Red Cell Distribution Width 17.4 % (11.8-14.3); White Blood Cell 3.8 10^3/uL (4.4-10.8)
[2020-04-05 09:52] LABS: Albumin 2.3 g/dL (3.4-5.0); Potassium 3.1 mmol/L (3.5-5.1)
[2020-04-05 09:55] LABS: BUN/Creatinine Ratio 10.8; Bilirubin, Total 0.2 mg/dL (0.2-1.0); Total Protein 5.8 g/dL (6.4-8.2)
[2020-04-05 09:57] LABS: Urine Amorphous Crystal FEW /hpf (None Seen); Urine Bacteria FEW /hpf (None Seen); Urine Blood TRACE /uL (Negative); Urine Specific Gravity 1.006 (1.001-1.035); Urine WBC 61 /hpf (0 - 3)
[2020-04-05] MEDS ORDERED: NOREPINEPHRINE 8 MG/250ML KIT 250 ML IV ONE (10:24)
[2020-04-05] MEDS: NOREPINEPHRINE 8 MG/250ML KIT 250 ML IV SCH (10:29)
[2020-04-05] MEDS ORDERED: CIPROFLOXACIN 400MG/200ML 200 ML IV ONE (10:30)
[2020-04-05] MEDS ORDERED: KETOROLAC TROMETH 30 MG/ML 1ML VIAL IV ONE (12:00)
[2020-04-05] MEDS ORDERED: MEROPENEM 500MG IVPB 50 ML IV ONE (12:00)
[2020-04-05 12:07] LABS: Lactic Acid w/Reflex 3.2 mmol/L (0.4-2.0)
[2020-04-05] MEDS ORDERED: VANCOMYCIN PER PHARMACY 0 MG IV SCH (13:45)
[2020-04-05] MEDS ORDERED: ERTAPENEM SOD INJ 1 GM in SODIUM CHL 0.9% 50 ML IV ONE (13:45)
[2020-04-05] MEDS ORDERED: VANCOMYCIN 1GM/250ML 250 ML IV ONE (13:45)
[2020-04-05] MEDS ORDERED: SODIUM CHLORIDE 0.9% 1,000 ML IV SCH (14:03)
[2020-04-05] MEDS: LINEZOLID 600MG/300ML 300 ML IV SCH ×2 (14:15→22:17)
[2020-04-05] MEDS ORDERED: NITROGLYCERIN 0.4 MG SL TAB SL PRN (14:15)
[2020-04-05] MEDS: SOD CHL 0.9%/ KCL 40MEQ 1,000 ML IV SCH ×2 (14:15→23:11)
[2020-04-05] MEDS ORDERED: MORPHINE SULF INJ 2 MG/ML SYRINGE 1ML IV PRN (14:15)
[2020-04-05] MEDS ORDERED: ALBUTEROL SULF 2.5 MG/0.5ML(0.5%) NEB SOLN NEB PRN (14:15)
[2020-04-05] MEDS ORDERED: PROMETHAZINE HCL 25 MG/ML 1ML IV PRN (14:15)
[2020-04-05] MEDS ORDERED: ACETAMINOPHEN 500 MG TAB PO PRN (14:15)
[2020-04-05 15:36] VITALS: BP 120/74
[2020-04-05] MEDS ORDERED: POTASSIUM EFFERVESENT TAB 25 MEQ PO ONE (15:45)
[2020-04-05] MEDS ORDERED: DOXYCYCLINE 100MG/250ML 250 ML IV SCH (16:00)
[2020-04-05] MEDS: OXYCODONE W/ ACETAMINOPHEN 5/325MG TABLET PO PRN (16:34)
[2020-04-05] MEDS: PANCREATIC ENZYMES PO SCH (18:00)
[2020-04-05] MEDS: METOCLOPRAMIDE HCL 10 MG TAB PO SCH ×2 (18:17→22:22)
[2020-04-05] MEDS: DOXYCYCLINE 100 MG TAB/CAP PO SCH (22:18)
[2020-04-05] MEDS: MORPHINE SULF 30 mg ER tab PO SCH (22:20)
[2020-04-05] MEDS: OXYBUTYNIN CHL 5 MG TAB PO SCH (22:21)
[2020-04-05] MEDS: PREGABALIN 25 MG CAP PO SCH (22:21)
[2020-04-05] MEDS: GABAPENTIN 300 MG CAP PO SCH (22:21)
[2020-04-05] MEDS: SENNA 8.6 MG TAB PO SCH (22:22)
[2020-04-05] MEDS: BACLOFEN 10 MG TAB PO SCH (22:22)
[2020-04-05] MEDS: FAMOTIDINE 20 MG TAB PO SCH (22:22)
[2020-04-05] MEDS: MIDODRINE HCL 10 MG TAB GT SCH (22:22)
[2020-04-05] MEDS: TEMAZEPAM 15 MG CAP PO PRN (22:43)
[2020-04-06] MEDS: OXYCODONE W/ ACETAMINOPHEN 5/325MG TABLET PO PRN ×2 (04:26→12:34)
[2020-04-06] MEDS: MIDODRINE HCL 10 MG TAB GT SCH (05:54)
[2020-04-06] MEDS: OXYBUTYNIN CHL 5 MG TAB PO SCH ×3 (05:54→22:15)
[2020-04-06] MEDS: BACLOFEN 10 MG TAB PO SCH ×3 (05:54→22:16)
[2020-04-06] MEDS: METOCLOPRAMIDE HCL 10 MG TAB PO SCH ×4 (05:54→22:14)
[2020-04-06] MEDS: GABAPENTIN 300 MG CAP PO SCH ×3 (05:54→22:16)
[2020-04-06] MEDS: SOD CHL 0.9%/ KCL 40MEQ 1,000 ML IV SCH ×3 (07:54→23:35)
[2020-04-06] MEDS: PANCREATIC ENZYMES PO SCH ×3 (08:00→18:00)
[2020-04-06] MEDS: MORPHINE SULF INJ 2 MG/ML SYRINGE 1ML IV PRN (08:43)
[2020-04-06] MEDS ORDERED: ASPirin 81 mg TAB NG SCH (10:00)
[2020-04-06] MEDS: ERTAPENEM SOD INJ 1 GM in SODIUM CHL 0.9% 50 ML IV SCH (10:05)
[2020-04-06] MEDS: LACTULOSE 20Gm/30ML SOLN PO SCH (10:06)
[2020-04-06] MEDS: PREGABALIN 25 MG CAP PO SCH ×2 (10:06→22:15)
[2020-04-06] MEDS: SENNA 8.6 MG TAB PO SCH ×2 (10:07→22:16)
[2020-04-06] MEDS: ENOXAPARIN SOD 40 MG/0.4 ML SYRINGE SC SCH (10:07)
[2020-04-06] MEDS: DOXYCYCLINE 100 MG TAB/CAP PO SCH ×2 (10:07→22:15)
[2020-04-06] MEDS: MORPHINE SULF 30 mg ER tab PO SCH ×2 (10:07→22:15)
[2020-04-06] MEDS: FAMOTIDINE 20 MG TAB PO SCH ×2 (10:07→22:00)
[2020-04-06] MEDS: DICYCLOMINE HCL 10 MG CAP PO SCH (10:08)
[2020-04-06] MEDS: NOREPINEPHRINE 8 MG/250ML KIT 250 ML IV SCH (11:05)
[2020-04-06] MEDS: LINEZOLID 600MG/300ML 300 ML IV SCH ×2 (11:07→22:14)
[2020-04-06 14:15] VITALS: BP 95/52
[2020-04-06] MEDS: MIDODRINE HCL 10 MG TAB PO SCH ×2 (14:37→22:14)
[2020-04-06 17:00] VITALS: BP 99/93
[2020-04-06 17:27] VITALS: BP 103/62
[2020-04-06 20:00] VITALS: BP 100/66
[2020-04-06 22:22] VITALS: BP 81/50
[2020-04-06] MEDS: TEMAZEPAM 15 MG CAP PO PRN (22:53)
[2020-04-06 23:13] VITALS: BP 100/66
[2020-04-07 05:06] LABS: Basophils # (auto) 0 10 ^3/uL (0-0.2); Eosinophils # (auto) 0.1 10 ^3/uL (0-0.8); Eosinophils % (auto) 1.2 % (0.0-7.0); Hemoglobin 8.7 g/dL (13.5-17.5); Monocytes # (auto) 0.7 10 ^3/uL (0-1.3)
[2020-04-07 05:08] LABS: Basophils % (auto) 0.3 % (0.0-2.0); Hematocrit 27.6 % (41.0-53.0); Lymphocytes % (auto) 10.5 % (10.0-50.0); Mean Corpuscular Hemoglobin 26.3 pg (28.0-32.0); Mean Corpuscular Hgb Conc. 31.5 g/dL (32.0-36.0); Mean Corpuscular Volume 83.4 fL (80.0-100.0); Monocytes % (auto) 7.4 % (0.0-12.0); Neutrophils # (auto) 7.7 10 ^3/uL (1.6-8.6); Neutrophils % (auto) 80.6 % (37.0-80.0); Nucleated Red Blood Cells % 0.3 %; Platelet Count (auto) 172 10^3/uL (140-450); White Blood Cell 9.5 10^3/uL (4.4-10.8)
[2020-04-07 05:19] VITALS: BP 105/78
[2020-04-07 05:19] LABS: BUN/Creatinine Ratio 9.2; Calcium 7.9 mg/dL (8.5-10.1); Magnesium 1.8 mg/dL (1.6-2.6); Potassium 4.7 mmol/L (3.5-5.1)
[2020-04-07] MEDS: MIDODRINE HCL 10 MG TAB PO SCH ×3 (06:00→21:42)
[2020-04-07] MEDS: OXYBUTYNIN CHL 5 MG TAB PO SCH ×3 (06:00→21:41)
[2020-04-07] MEDS: METOCLOPRAMIDE HCL 10 MG TAB PO SCH ×4 (06:00→21:43)
[2020-04-07] MEDS: BACLOFEN 10 MG TAB PO SCH ×3 (06:00→21:38)
[2020-04-07] MEDS: GABAPENTIN 300 MG CAP PO SCH ×3 (06:00→21:40)
[2020-04-07] MEDS: MORPHINE SULF INJ 2 MG/ML SYRINGE 1ML IV PRN ×2 (06:01→18:58)
[2020-04-07 08:00] VITALS: BP 110/68
[2020-04-07] MEDS: PANCREATIC ENZYMES PO SCH ×3 (08:00→18:48)
[2020-04-07 09:00] VITALS: BP 110/68
[2020-04-07] MEDS: FAMOTIDINE 20 MG TAB PO SCH (10:00)
[2020-04-07] MEDS: SOD CHL 0.9%/ KCL 40MEQ 1,000 ML IV SCH ×2 (10:13→18:00)
[2020-04-07] MEDS: LACTULOSE 20Gm/30ML SOLN PO SCH (10:14)
[2020-04-07] MEDS: ASPirin 81 mg TAB PO SCH (10:14)
[2020-04-07] MEDS: ERTAPENEM SOD INJ 1 GM in SODIUM CHL 0.9% 50 ML IV SCH (10:14)
[2020-04-07] MEDS: LINEZOLID 600MG/300ML 300 ML IV SCH ×2 (10:14→21:45)
[2020-04-07] MEDS: PREGABALIN 25 MG CAP PO SCH ×2 (10:15→21:41)
[2020-04-07] MEDS: MORPHINE SULF 30 mg ER tab PO SCH ×2 (10:15→21:43)
[2020-04-07] MEDS: SENNA 8.6 MG TAB PO SCH ×2 (10:15→21:44)
[2020-04-07] MEDS: DICYCLOMINE HCL 10 MG CAP PO SCH (10:15)
[2020-04-07] MEDS: ENOXAPARIN SOD 40 MG/0.4 ML SYRINGE SC SCH (10:15)
[2020-04-07] MEDS: DOXYCYCLINE 100 MG TAB/CAP PO SCH ×2 (10:15→21:44)
[2020-04-07] MEDS: NOREPINEPHRINE 8 MG/250ML KIT 250 ML IV SCH (10:30)
[2020-04-07] MEDS: OXYCODONE W/ ACETAMINOPHEN 5/325MG TABLET PO PRN (12:55)
[2020-04-07 13:00] VITALS: BP 129/82
[2020-04-07 17:00] VITALS: BP 136/86
[2020-04-07] MEDS: FAMOTIDINE (10MG/ML) 2ML VL IV SCH (21:45)
[2020-04-07 21:52] VITALS: BP 137/83
[2020-04-08] MEDS: SOD CHL 0.9%/ KCL 40MEQ 1,000 ML IV SCH ×3 (01:26→17:43)
[2020-04-08 04:47] VITALS: BP 141/95
[2020-04-08] MEDS: GABAPENTIN 300 MG CAP PO SCH ×3 (05:31→22:08)
[2020-04-08] MEDS: BACLOFEN 10 MG TAB PO SCH ×3 (05:33→22:09)
[2020-04-08] MEDS: METOCLOPRAMIDE HCL 10 MG TAB PO SCH ×4 (05:34→22:05)
[2020-04-08] MEDS: MIDODRINE HCL 10 MG TAB PO SCH ×3 (05:34→22:10)
[2020-04-08] MEDS: OXYBUTYNIN CHL 5 MG TAB PO SCH ×3 (05:34→22:10)
[2020-04-08] MEDS: MORPHINE SULF INJ 2 MG/ML SYRINGE 1ML IV PRN ×3 (06:06→23:43)
[2020-04-08] MEDS: PANCREATIC ENZYMES PO SCH ×3 (08:06→18:13)
[2020-04-08 09:00] VITALS: BP 133/73
[2020-04-08] MEDS: ENOXAPARIN SOD 40 MG/0.4 ML SYRINGE SC SCH (11:00)
[2020-04-08] MEDS: DICYCLOMINE HCL 10 MG CAP PO SCH (11:00)
[2020-04-08] MEDS: SENNA 8.6 MG TAB PO SCH ×2 (11:00→22:13)
[2020-04-08] MEDS: ASPirin 81 mg TAB PO SCH (11:00)
[2020-04-08] MEDS: MORPHINE SULF 30 mg ER tab PO SCH ×2 (11:00→22:11)
[2020-04-08] MEDS: FAMOTIDINE (10MG/ML) 2ML VL IV SCH ×2 (11:00→22:11)
[2020-04-08] MEDS: PREGABALIN 25 MG CAP PO SCH ×2 (11:00→22:05)
[2020-04-08] MEDS: DOXYCYCLINE 100 MG TAB/CAP PO SCH ×2 (11:00→22:05)
[2020-04-08] MEDS: ERTAPENEM SOD INJ 1 GM in SODIUM CHL 0.9% 50 ML IV SCH (11:00)
[2020-04-08] MEDS: LACTULOSE 20Gm/30ML SOLN PO SCH (11:00)
[2020-04-08] MEDS: LINEZOLID 600MG/300ML 300 ML IV SCH ×2 (12:32→22:35)
[2020-04-08 13:00] VITALS: BP 128/87
[2020-04-08 15:29] VITALS: BP 128/87
[2020-04-08 16:59] VITALS: BP 149/92
[2020-04-08 22:00] VITALS: BP 46/99
[2020-04-09] MEDS: SOD CHL 0.9%/ KCL 40MEQ 1,000 ML IV SCH ×3 (02:19→17:22)
[2020-04-09] MEDS: OXYCODONE W/ ACETAMINOPHEN 5/325MG TABLET PO PRN (02:28)
[2020-04-09 05:00] VITALS: BP 146/88
[2020-04-09 05:53] LABS: Basophils # (auto) 0.1 10 ^3/uL (0-0.2); Basophils % (auto) 1.9 % (0.0-2.0); Eosinophils # (auto) 0.1 10 ^3/uL (0-0.8); Hematocrit 29.3 % (41.0-53.0); Hemoglobin 9.5 g/dL (13.5-17.5); Lymphocytes # (auto) 1.3 10 ^3/uL (0.4-5.4); Lymphocytes % (auto) 33.6 % (10.0-50.0); Mean Corpuscular Hemoglobin 26.6 pg (28.0-32.0); Mean Corpuscular Hgb Conc. 32.6 g/dL (32.0-36.0); Mean Corpuscular Volume 81.6 fL (80.0-100.0); Monocytes # (auto) 0.4 10 ^3/uL (0-1.3); Monocytes % (auto) 10.6 % (0.0-12.0); Neutrophils # (auto) 2.1 10 ^3/uL (1.6-8.6); Neutrophils % (auto) 51.9 % (37.0-80.0); Nucleated Red Blood Cells % 0.2 %; Platelet Count (auto) 230 10^3/uL (140-450); Red Blood Cells 3.58 10^6/uL (4.5-5.90); Red Cell Distribution Width 16.2 % (11.8-14.3)
[2020-04-09] MEDS: METOCLOPRAMIDE HCL 10 MG TAB PO SCH ×4 (06:00→21:17)
[2020-04-09] MEDS: MIDODRINE HCL 10 MG TAB PO SCH ×4 (06:00→21:16)
[2020-04-09] MEDS: GABAPENTIN 300 MG CAP PO SCH ×3 (06:04→21:15)
[2020-04-09] MEDS: BACLOFEN 10 MG TAB PO SCH ×2 (06:05→14:36)
[2020-04-09] MEDS: OXYBUTYNIN CHL 5 MG TAB PO SCH ×3 (06:05→21:17)
[2020-04-09] MEDS: MORPHINE SULF INJ 2 MG/ML SYRINGE 1ML IV PRN ×2 (06:15→19:51)
[2020-04-09 06:24] LABS: Potassium 4.8 mmol/L (3.5-5.1)
[2020-04-09 06:29] LABS: BUN/Creatinine Ratio 11.9; Calcium 8.5 mg/dL (8.5-10.1); Magnesium 1.9 mg/dL (1.6-2.6)
[2020-04-09] MEDS: PANCREATIC ENZYMES PO SCH ×3 (08:48→17:23)
[2020-04-09 09:49] VITALS: BP 110/77
[2020-04-09] MEDS: ASPirin 81 mg TAB PO SCH (09:56)
[2020-04-09] MEDS: FAMOTIDINE (10MG/ML) 2ML VL IV SCH ×2 (09:56→21:18)
[2020-04-09] MEDS: DICYCLOMINE HCL 10 MG CAP PO SCH (09:57)
[2020-04-09] MEDS: ERTAPENEM SOD INJ 1 GM in SODIUM CHL 0.9% 50 ML IV SCH (09:58)
[2020-04-09] MEDS: SENNA 8.6 MG TAB PO SCH ×2 (09:58→21:16)
[2020-04-09] MEDS: ENOXAPARIN SOD 40 MG/0.4 ML SYRINGE SC SCH (09:58)
[2020-04-09] MEDS: LACTULOSE 20Gm/30ML SOLN PO SCH (10:00)
[2020-04-09] MEDS: MORPHINE SULF 30 mg ER tab PO SCH ×2 (10:00→21:16)
[2020-04-09] MEDS: PREGABALIN 25 MG CAP PO SCH ×2 (10:04→21:14)
[2020-04-09] MEDS: LINEZOLID 600MG/300ML 300 ML IV SCH ×2 (11:21→22:50)
[2020-04-09 14:26] VITALS: BP 118/78
[2020-04-09 16:26] VITALS: BP 98/69
[2020-04-09] MEDS: CYCLOBENZAPRINE HCL 10 MG TAB PO SCH (21:17)
[2020-04-09 22:00] VITALS: BP 91/57
[2020-04-09 22:16] VITALS: BP 116/67
[2020-04-10] VITALS (7 sets, daily range): BP systolic 90–141; BP diastolic 54–86
[2020-04-10] MEDS: SOD CHL 0.9%/ KCL 40MEQ 1,000 ML IV SCH ×3 (03:38→19:51)
[2020-04-10] MEDS: METOCLOPRAMIDE HCL 10 MG TAB PO SCH ×4 (05:04→21:39)
[2020-04-10] MEDS: GABAPENTIN 300 MG CAP PO SCH ×3 (05:04→21:40)
[2020-04-10] MEDS: CYCLOBENZAPRINE HCL 10 MG TAB PO SCH ×3 (05:04→21:39)
[2020-04-10] MEDS: OXYBUTYNIN CHL 5 MG TAB PO SCH ×3 (05:04→21:39)
[2020-04-10] MEDS: MIDODRINE HCL 10 MG TAB PO SCH ×3 (05:06→21:40)
[2020-04-10] MEDS: PANCREATIC ENZYMES PO SCH ×3 (07:49→17:53)
[2020-04-10] MEDS: FAMOTIDINE (10MG/ML) 2ML VL IV SCH ×2 (09:47→21:38)
[2020-04-10] MEDS: ERTAPENEM SOD INJ 1 GM in SODIUM CHL 0.9% 50 ML IV SCH (09:47)
[2020-04-10] MEDS: SENNA 8.6 MG TAB PO SCH ×2 (09:48→21:38)
[2020-04-10] MEDS: ASPirin 81 mg TAB PO SCH (09:48)
[2020-04-10] MEDS: PREGABALIN 25 MG CAP PO SCH ×2 (09:48→21:39)
[2020-04-10] MEDS: MORPHINE SULF 30 mg ER tab PO SCH ×2 (09:48→22:00)
[2020-04-10] MEDS: DICYCLOMINE HCL 10 MG CAP PO SCH (09:48)
[2020-04-10] MEDS: LACTULOSE 20Gm/30ML SOLN PO SCH (09:49)
[2020-04-10] MEDS: ENOXAPARIN SOD 40 MG/0.4 ML SYRINGE SC SCH (09:49)
[2020-04-10] MEDS: LINEZOLID 600MG/300ML 300 ML IV SCH (12:13)
[2020-04-10] MEDS: OXYCODONE W/ ACETAMINOPHEN 5/325MG TABLET PO PRN (14:32)
[2020-04-10] MEDS: MORPHINE SULF INJ 2 MG/ML SYRINGE 1ML IV PRN (21:41)
[2020-04-11] MEDS: LINEZOLID 600MG/300ML 300 ML IV SCH ×2 (00:31→12:09)
[2020-04-11] MEDS: OXYCODONE W/ ACETAMINOPHEN 5/325MG TABLET PO PRN (01:01)
[2020-04-11] MEDS: SOD CHL 0.9%/ KCL 40MEQ 1,000 ML IV SCH ×3 (04:31→20:29)
[2020-04-11] MEDS: GABAPENTIN 300 MG CAP PO SCH ×4 (05:56→21:57)
[2020-04-11] MEDS: MIDODRINE HCL 10 MG TAB PO SCH ×3 (05:56→21:57)
[2020-04-11] MEDS: METOCLOPRAMIDE HCL 10 MG TAB PO SCH ×4 (05:56→21:58)
[2020-04-11] MEDS: CYCLOBENZAPRINE HCL 10 MG TAB PO SCH ×4 (05:56→21:58)
[2020-04-11] MEDS: OXYBUTYNIN CHL 5 MG TAB PO SCH ×3 (05:56→21:57)
[2020-04-11] MEDS: PANCREATIC ENZYMES PO SCH ×3 (08:00→18:00)
[2020-04-11 08:24] VITALS: BP 112/81
[2020-04-11] MEDS: MORPHINE SULF INJ 2 MG/ML SYRINGE 1ML IV PRN ×2 (08:27→20:29)
[2020-04-11] MEDS: PREGABALIN 25 MG CAP PO SCH ×2 (10:00→21:59)
[2020-04-11] MEDS: ERTAPENEM SOD INJ 1 GM in SODIUM CHL 0.9% 50 ML IV SCH (10:44)
[2020-04-11] MEDS: LACTULOSE 20Gm/30ML SOLN PO SCH (10:45)
[2020-04-11] MEDS: ENOXAPARIN SOD 40 MG/0.4 ML SYRINGE SC SCH (10:45)
[2020-04-11] MEDS: FAMOTIDINE (10MG/ML) 2ML VL IV SCH ×2 (10:46→21:56)
[2020-04-11] MEDS: ASPirin 81 mg TAB PO SCH (10:46)
[2020-04-11] MEDS: DICYCLOMINE HCL 10 MG CAP PO SCH (10:47)
[2020-04-11] MEDS: SENNA 8.6 MG TAB PO SCH ×2 (10:47→21:56)
[2020-04-11] MEDS: MORPHINE SULF 30 mg ER tab PO SCH ×2 (10:47→21:57)
[2020-04-11 12:52] VITALS: BP 147/85
[2020-04-11 12:55] VITALS: BP 112/81
[2020-04-11 16:37] VITALS: BP 124/87
[2020-04-11 20:00] VITALS: BP 119/76
[2020-04-11 21:39] VITALS: BP 119/76
[2020-04-11] MEDS: TEMAZEPAM 15 MG CAP PO PRN (21:59)
[2020-04-11] MEDS ORDERED: TOBRAMYCIN 300 MG/5 ML NEB SOLN NEB SCH (22:00)
[2020-04-12] MEDS: LINEZOLID 600MG/300ML 300 ML IV SCH ×2 (00:34→10:55)
[2020-04-12] MEDS: SOD CHL 0.9%/ KCL 40MEQ 1,000 ML IV SCH ×3 (04:53→22:24)
[2020-04-12 05:45] VITALS: BP 105/65
[2020-04-12] MEDS: OXYBUTYNIN CHL 5 MG TAB PO SCH ×3 (05:47→22:24)
[2020-04-12] MEDS: CYCLOBENZAPRINE HCL 10 MG TAB PO SCH ×3 (05:47→22:25)
[2020-04-12] MEDS: MIDODRINE HCL 10 MG TAB PO SCH ×3 (05:47→22:27)
[2020-04-12] MEDS: METOCLOPRAMIDE HCL 10 MG TAB PO SCH ×4 (05:47→22:28)
[2020-04-12] MEDS: GABAPENTIN 300 MG CAP PO SCH ×3 (05:47→22:25)
[2020-04-12 08:00] VITALS: BP 126/88
[2020-04-12] MEDS: PANCREATIC ENZYMES PO SCH ×3 (08:04→17:34)
[2020-04-12 09:00] VITALS: BP 126/88
[2020-04-12] MEDS: FAMOTIDINE (10MG/ML) 2ML VL IV SCH ×2 (09:19→22:24)
[2020-04-12] MEDS: LACTULOSE 20Gm/30ML SOLN PO SCH ×2 (09:19→17:33)
[2020-04-12] MEDS: ASPirin 81 mg TAB PO SCH (09:19)
[2020-04-12] MEDS: DICYCLOMINE HCL 10 MG CAP PO SCH (09:20)
[2020-04-12] MEDS: MORPHINE SULF 30 mg ER tab PO SCH ×2 (09:20→22:00)
[2020-04-12] MEDS: PREGABALIN 25 MG CAP PO SCH ×2 (09:20→22:25)
[2020-04-12] MEDS: SENNA 8.6 MG TAB PO SCH ×2 (09:21→22:28)
[2020-04-12] MEDS: ENOXAPARIN SOD 40 MG/0.4 ML SYRINGE SC SCH (09:21)
[2020-04-12 13:00] VITALS: BP 93/56
[2020-04-12] MEDS: OXYCODONE W/ ACETAMINOPHEN 5/325MG TABLET PO PRN (17:07)
[2020-04-12 17:20] VITALS: BP 119/74
[2020-04-12] MEDS: BACLOFEN 10 MG TAB PO PRN (17:34)
[2020-04-12 19:54] LABS: INR 1.09 (0.9-1.15)
[2020-04-12 22:00] VITALS: BP 91/58
[2020-04-12] MEDS ORDERED: ZERBAXA 1.5 GM IV SCH (22:00)
[2020-04-12] MEDS: CeftoloZANE-TAZOB 1g/0.5g in D5W 5% 100 ML IV SCH (22:24)
[2020-04-12] MEDS: TEMAZEPAM 15 MG CAP PO PRN (22:29)
[2020-04-12] MEDS: MORPHINE SULF INJ 2 MG/ML SYRINGE 1ML IV PRN (22:29)
[2020-04-13] MEDS: LINEZOLID 600MG/300ML 300 ML IV SCH ×2 (00:19→12:16)
[2020-04-13] MEDS: MORPHINE SULF INJ 2 MG/ML SYRINGE 1ML IV PRN ×2 (03:47→08:25)
[2020-04-13] MEDS: LACTULOSE 20Gm/30ML SOLN PO SCH ×4 (05:14→17:19)
[2020-04-13] MEDS: OXYBUTYNIN CHL 5 MG TAB PO SCH ×2 (05:14→14:00)
[2020-04-13] MEDS: METOCLOPRAMIDE HCL 10 MG TAB PO SCH ×3 (05:15→17:19)
[2020-04-13] MEDS: CYCLOBENZAPRINE HCL 10 MG TAB PO SCH ×2 (05:15→14:00)
[2020-04-13] MEDS: GABAPENTIN 300 MG CAP PO SCH ×2 (05:15→14:00)
[2020-04-13] MEDS: MIDODRINE HCL 10 MG TAB PO SCH ×2 (05:15→14:00)
[2020-04-13] MEDS: CeftoloZANE-TAZOB 1g/0.5g in D5W 5% 100 ML IV SCH ×2 (05:46→14:00)
[2020-04-13] MEDS: SOD CHL 0.9%/ KCL 40MEQ 1,000 ML IV SCH ×2 (05:46→13:55)
[2020-04-13] MEDS ORDERED: oxyCODONE HCL 5MG TAB PO PRN (06:30)
[2020-04-13 06:35] LABS: Basophils # (auto) 0 10 ^3/uL (0-0.2); Eosinophils # (auto) 0.1 10 ^3/uL (0-0.8); Lymphocytes # (auto) 0.9 10 ^3/uL (0.4-5.4); Neutrophils # (auto) 1.6 10 ^3/uL (1.6-8.6); White Blood Cell 3.1 10^3/uL (4.4-10.8)
[2020-04-13 06:37] LABS: Eosinophils % (auto) 2.4 % (0.0-7.0); Hemoglobin 9.4 g/dL (13.5-17.5); Lymphocytes % (auto) 29.6 % (10.0-50.0); Mean Corpuscular Hgb Conc. 31.4 g/dL (32.0-36.0); Mean Corpuscular Volume 82.8 fL (80.0-100.0); Monocytes # (auto) 0.5 10 ^3/uL (0-1.3); Monocytes % (auto) 15.4 % (0.0-12.0); Neutrophils % (auto) 51.6 % (37.0-80.0); Nucleated Red Blood Cells % 0.7 %; Platelet Count (auto) 208 10^3/uL (140-450); Red Blood Cells 3.63 10^6/uL (4.5-5.90); Red Cell Distribution Width 17.5 % (11.8-14.3)
[2020-04-13 06:57] LABS: BUN/Creatinine Ratio 15.4; Calcium 7.9 mg/dL (8.5-10.1); Magnesium 2.1 mg/dL (1.6-2.6); Potassium 4.2 mmol/L (3.5-5.1)
[2020-04-13] MEDS: PANCREATIC ENZYMES PO SCH ×3 (08:00→17:20)
[2020-04-13] MEDS: BACLOFEN 10 MG TAB PO PRN (08:24)
[2020-04-13 08:49] VITALS: BP 115/67
[2020-04-13] MEDS: ASPirin 81 mg TAB PO SCH (09:37)
[2020-04-13] MEDS: ENOXAPARIN SOD 40 MG/0.4 ML SYRINGE SC SCH (09:38)
[2020-04-13] MEDS: DICYCLOMINE HCL 10 MG CAP PO SCH (10:00)
[2020-04-13] MEDS: SENNA 8.6 MG TAB PO SCH (10:00)
[2020-04-13] MEDS ORDERED: FLUCONAZOLE 100 MG TAB PO SCH (10:00)
[2020-04-13] MEDS: FAMOTIDINE (10MG/ML) 2ML VL IV SCH (10:10)
[2020-04-13] MEDS: PREGABALIN 25 MG CAP PO SCH (12:05)
[2020-04-13] MEDS: MORPHINE SULF 30 mg ER tab PO SCH (12:05)
[2020-04-13 13:00] VITALS: BP 95/66
[2020-04-13] MEDS ORDERED: MIDAZOLAM HCL 5 MG/ML-1ML VIAL IV ONE (13:15)
[2020-04-13] MEDS ORDERED: MIDAZOLAM HCL 1MG/1ML-2 ML VIAL ONE (13:20)
[2020-04-13 15:12] VITALS: BP 95/66
[2020-04-13 15:47] VITALS: BP 85/59
[2020-04-13 18:24] VITALS: BP 97/50
== END 2020-04-13 19:41 | disposition home health service (06) | DRG 463 ==
LOC: EDBD 08:50 → EDUNIT# 08:50 → ER 08:50 → OVERFLOW 08:51 → TELE-CENTR 04-06 13:55
PROVIDERS: ADMIT Internal Medicine; ATTEND Internal Medicine
PROC: B24BZZ4 Ultrasonography of Heart with Aorta, Transesophageal (ICD-10-PCS; principal; 2020-04-13)
DX: N39.0 Urinary tract infection, site not specified (principal); J15.6 Pneumonia due to other Gram-negative bacteria; D61.818 Other pancytopenia; L89.152 Pressure ulcer of sacral region, stage 2; E87.2 Acidosis; G82.20 Paraplegia, unspecified; F11.20 Opioid dependence, uncomplicated; E44.1 Mild protein-calorie malnutrition; J44.0 Chronic obstructive pulmonary disease with (acute) lower respiratory infection; S73.001A Unspecified subluxation of right hip, initial encounter; E86.0 Dehydration; D63.8 Anemia in other chronic diseases classified elsewhere; E87.6 Hypokalemia; K21.9 Gastro-esophageal reflux disease without esophagitis; I10 Essential (primary) hypertension; B96.1 Klebsiella pneumoniae [K. pneumoniae] as the cause of diseases classified elsewhere; B96.5 Pseudomonas (aeruginosa) (mallei) (pseudomallei) as the cause of diseases classified elsewhere; K59.00 Constipation, unspecified; F41.9 Anxiety disorder, unspecified; Z16.21 Resistance to vancomycin; G47.00 Insomnia, unspecified; Z20.828 Contact with and (suspected) exposure to other viral communicable diseases; X58.XXXA Exposure to other specified factors, initial encounter; G89.4 Chronic pain syndrome; B95.2 Enterococcus as the cause of diseases classified elsewhere; G40.909 Epilepsy, unspecified, not intractable, without status epilepticus; M85.80 Other specified disorders of bone density and structure, unspecified site; Z87.440 Personal history of urinary (tract) infections; Z88.1 Allergy status to other antibiotic agents; Z82.49 Family history of ischemic heart disease and other diseases of the circulatory system; Z93.3 Colostomy status; Z82.0 Family history of epilepsy and other diseases of the nervous system; Z87.01 Personal history of pneumonia (recurrent); Y93.89 Activity, other specified; Y92.89 Other specified places as the place of occurrence of the external cause; Y99.8 Other external cause status; Z79.899 Other long term (current) drug therapy
CPT/HCPCS: 36415; 71045; 71250; 73502; 74176; 80048; 80053; 81001; 83605; 83735; 85025; 85610; 85652; 86850; 86900; 86901; 87040; 87070; 87077; 87081; 87086; 87088; 87186; 87804; 87880; 93306; 93312; 94640; 97110; 97530; 99152; 99291; G0378; J1335; J1642; J1885; J2185; J2250; J3490; J7060

== ENCOUNTER 2020-04-16 11:51 | Emergency (ER) | payer MEDICAID ==
[~2020-04-16] VITALS: Ht 177.8 cm; Wt 54.4 kg
[2020-04-16 13:45] VITALS: BP 84/54
== END 2020-04-16 17:30 | disposition home or self-care (01) ==
LOC: EDBD 11:51 → ER 11:51
DX: T82.599A Other mechanical complication of unspecified cardiac and vascular devices and implants, initial encounter (principal); J18.9 Pneumonia, unspecified organism; N39.0 Urinary tract infection, site not specified; Y83.9 Surgical procedure, unspecified as the cause of abnormal reaction of the patient, or of later complication, without mention of misadventure at the time of the procedure; Y92.89 Other specified places as the place of occurrence of the external cause